=== PATIENT | female | born 1975 | race Caucasian/White ===

== ENCOUNTER 2020-06-20 04:43 | Inpatient (IN) ==
[2020-06-20 05:16] LABS: Hematocrit 41.1 % (35.3-44.9); Hemoglobin 12.5 g/dL (11.5-15.4); Mean Corpuscular HGB Conc 30.4 g/dL (31.6-35.5); Mean Corpuscular Hemoglobin 26.4 pg (28.0-33.3); Mean Corpuscular Volume 86.7 fL (83.0-100.0); Mean Platelet Volume 9.8 fL (9.4-12.4); Platelet Count 236 K/mcL (140-400); Red Blood Count 4.74 M/mcL (3.82-4.97); White Blood Count 7.1 K/mcL (4.3-11.1)
[2020-06-20 05:21] LABS: INR 1.1; Prothrombin Time 12.5 Seconds (9.4-12.1)
[2020-06-20] MEDS ORDERED: Naloxone 0.4 MG/ML INJ IVP ONE (05:21)
[2020-06-20 05:23] LABS: Activated Partial Thrombo Time 26.5 Seconds (26.0-36.0)
[2020-06-20] MEDS ORDERED: 0.9 % Sodium Chloride 1,000 ML IVC ONE (05:29)
[2020-06-20 05:39] LABS: Acetaminophen < 10 mcg/mL (10-20); BUN/Creatinine Ratio 20 (6-26); Blood Urea Nitrogen 16 mg/dL (6-20); Calcium 9.1 mg/dL (8.6-10.3); Carbon Dioxide 23 mEq/L (23-29); Chloride 109 mEq/L (98-107); Ethanol < 10 mg/dL (Less than 10); Glucose 130 mg/dL (70-105); Osmolality,Calculated 295 (280-300); Potassium 4.4 mEq/L (3.5-5.1); Salicylate < 2.5 mg/dL (15.0-30.0); Sodium 141 mEq/L (136-145); eGFR For African Americans > 60 (> 60); eGFR For Non-African Americans > 60 (> 60)
[2020-06-20 05:46] LABS: Troponin I < 0.03 ng/mL (< 0.04)
[2020-06-20 05:51] LABS: Bilirubin,Urine Negative (Negative); Blood,Urine Negative (Negative); Clarity,Urine Clear (Clear); Color,Urine Yellow (Yellow); Glucose,Urine (UA) >=1000 mg/dL (Normal); Ketones,Urine Negative (Negative); Leukocyte Esterase,Urine Negative (Negative); Nitrite,Urine Negative (Negative); PH,Urine 6.5 pH Units (5.0-8.0); Protein,Urine Negative (Neg-Trace); RBC,Urine 0-3 per hpf (0-3); Squamous Epithelial Cell,Urine Few per hpf (None-Few); Urobilinogen,Urine Normal (Normal); WBC,Urine 0-3 per hpf (0-3)
[2020-06-20 05:54] LABS: VBG HCO3 27 mEq/L (21-27); VBG PCO2 68 mmHg (41-51); VBG PH 7.21 pH Units (7.32-7.42); VBG PO2 52 mmHg (25-50)
[2020-06-20 05:59] LABS: Amphetamine Screen,Urine Negative ng/mL (Cutoff=1000); Barbiturate Screen,Urine Negative ng/mL (Cutoff=200); Benzodiazepines Screen,Urine Negative ng/mL (Cutoff=200); Cannabinoid Screen,Urine Negative ng/mL (Cutoff = 50); Cocaine Screen,Urine Negative ng/mL (Cutoff= 300); Opiate Screen,Urine Negative ng/mL (Cutoff=300); Phencyclidine Screen,Urine Negative ng/mL (Cutoff=25)
[2020-06-20] MEDS ORDERED: Ondansetron 4 MG/2 ML VIAL IVP PRN (07:27)
[2020-06-20] MEDS ORDERED: Naloxone 0.4 MG/ML INJ IVP PRN (07:27)
[2020-06-20] MEDS ORDERED: Furosemide 20 MG/2 ML VIAL IVP ONE (07:30)
[2020-06-20 07:39] LABS: Thyroid Stimulating Hormone 1.472 mcIU/mL (0.340-5.600)
[2020-06-20] MEDS: Ipratropium/Albuterol Neb 3 ML IH SCH ×5 (08:05→23:17)
[2020-06-20] MEDS ORDERED: D5% in Water 1,000 ML IVC PRN (08:50)
[2020-06-20] MEDS ORDERED: *HR* Dextrose 50 % in Water (Vial) 50 ML VIAL IVP PRN (08:50)
[2020-06-20] MEDS ORDERED: Dextrose Gel 15 GM/37.5 ML TUBE PO PRN ×2 (08:50)
[2020-06-20] MEDS ORDERED: Isovue-370 500 ML BOTTLE IVP ONE (09:44)
[2020-06-20] MEDS: Azithromycin 500 MG in 0.9 % Sodium Chloride 250 ML IVPB SCH (10:20)
[2020-06-20] MEDS: MethylPREDNISolone 40 MG/ML VIAL IVP SCH (10:20)
[2020-06-20 11:28] LABS: C-Reactive Protein 5 mg/L (Less than 10)
[2020-06-20] MEDS: Insulin LISPRO 300 UNITS/3 ML VIAL SUBQ SCH ×2 (13:00→18:00)
[2020-06-20] MEDS: *HR* Heparin 5,000 UNIT/ML VIAL SQ SCH (17:50)
[2020-06-21] MEDS: Insulin LISPRO 300 UNITS/3 ML VIAL SUBQ SCH ×4 (00:21→20:39)
[2020-06-21] MEDS: Ipratropium/Albuterol Neb 3 ML IH SCH ×5 (04:22→20:03)
[2020-06-21 04:43] LABS: VBG HCO3 25 mEq/L (21-27); VBG PCO2 42 mmHg (41-51); VBG PH 7.39 pH Units (7.32-7.42); VBG PO2 80 mmHg (25-50)
[2020-06-21 04:44] LABS: Basophils % 0.4 %; Eosinophils # 0.1 K/mcL (0.0-0.6); Eosinophils % 1.1 %; Hematocrit 35.7 % (35.3-44.9); Immature Granulocytes % 0.6 % (0-4); Lymphocytes # 2.5 K/mcL (0.6-4.6); Lymphocytes % 35.4 %; Mean Corpuscular HGB Conc 30.3 g/dL (31.6-35.5); Mean Corpuscular Hemoglobin 26.3 pg (28.0-33.3); Mean Corpuscular Volume 87.1 fL (83.0-100.0); Mean Platelet Volume 9.9 fL (9.4-12.4); Monocytes # 0.4 K/mcL (0.0-1.3); Monocytes % 5.6 %; Platelet Count 229 K/mcL (140-400); Red Cell Distribution Width 12.9 % (11.5-14.5); Segmented Neutrophils % 56.9 %
[2020-06-21 04:46] LABS: Hemoglobin 10.8 g/dL (11.5-15.4)
[2020-06-21 05:02] LABS: BUN/Creatinine Ratio 23 (6-26); Blood Urea Nitrogen 16 mg/dL (6-20); Calcium 8.8 mg/dL (8.6-10.3); Carbon Dioxide 24 mEq/L (23-29); Chloride 108 mEq/L (98-107); Glucose 110 mg/dL (70-105); Osmolality,Calculated 290 (280-300); Potassium 3.8 mEq/L (3.5-5.1); Sodium 139 mEq/L (136-145); eGFR For African Americans > 60 (> 60); eGFR For Non-African Americans > 60 (> 60)
[2020-06-21] MEDS: *HR* Heparin 5,000 UNIT/ML VIAL SQ SCH ×2 (05:49→20:38)
[2020-06-21] MEDS: Azithromycin 500 MG in 0.9 % Sodium Chloride 250 ML IVPB SCH (09:31)
[2020-06-21] MEDS: MethylPREDNISolone 40 MG/ML VIAL IVP SCH (09:32)
[2020-06-21] MEDS ORDERED: BUPRENORPHINE TP SCH (12:00)
[2020-06-21] MEDS: Venlafaxine XR (24 HR) 150 MG CAP.ER.24H PO SCH (12:18)
[2020-06-21] MEDS: Aspirin Enteric Coated 81 MG Tablet PO SCH (12:18)
[2020-06-21] MEDS: Gabapentin 300 MG CAPSULE PO SCH ×2 (15:59→20:40)
[2020-06-21] MEDS: hydrOXYzine pamoate 25 MG CAPSULE PO SCH ×2 (15:59→20:40)
[2020-06-21] MEDS ORDERED: Perflutren Lipid Microsphere 1.3 ML in 0.9 % Sodium Chloride 8.7 ML IVP PRN (18:58)
[2020-06-21] MEDS: Topiramate 25 MG TABLET PO SCH (20:39)
[2020-06-21] MEDS: Propranolol LA (24 HR) 60 MG CAP.SA.24H PO SCH (20:40)
[2020-06-21] MEDS ORDERED: risperiDONE 1 MG TABLET PO SCH (21:00)
[2020-06-21] MEDS ORDERED: Ipratropium/Albuterol Neb 3 ML IH PRN (21:37)
[2020-06-22] MEDS: *HR* Heparin 5,000 UNIT/ML VIAL SQ SCH (06:32)
[2020-06-22] MEDS ORDERED: Insulin LISPRO 300 UNITS/3 ML VIAL SUBQ SCH ×2 (07:30→21:00)
[2020-06-22] MEDS: MethylPREDNISolone 40 MG/ML VIAL IVP SCH (08:30)
[2020-06-22] MEDS: Gabapentin 300 MG CAPSULE PO SCH (08:30)
[2020-06-22] MEDS: hydrOXYzine pamoate 25 MG CAPSULE PO SCH (08:30)
[2020-06-22] MEDS: Azithromycin 500 MG in 0.9 % Sodium Chloride 250 ML IVPB SCH (08:31)
[2020-06-22] MEDS: Propranolol LA (24 HR) 60 MG CAP.SA.24H PO SCH (08:31)
[2020-06-22] MEDS: Venlafaxine XR (24 HR) 150 MG CAP.ER.24H PO SCH (08:31)
[2020-06-22] MEDS: Aspirin Enteric Coated 81 MG Tablet PO SCH (08:31)
[2020-06-22] MEDS: Topiramate 25 MG TABLET PO SCH (08:31)
[2020-06-22] MEDS ORDERED: Loratadine 10 MG TABLET PO SCH (09:00)
[2020-06-22 09:57] LABS: Basophils % 0.6 %; Eosinophils # 0.1 K/mcL (0.0-0.6); Eosinophils % 1.2 %; Hematocrit 33.5 % (35.3-44.9); Hemoglobin 10.3 g/dL (11.5-15.4); Immature Granulocytes % 0.9 % (0-4); Lymphocytes # 2.5 K/mcL (0.6-4.6); Lymphocytes % 37.8 %; Mean Corpuscular HGB Conc 30.7 g/dL (31.6-35.5); Mean Corpuscular Volume 87.9 fL (83.0-100.0); Mean Platelet Volume 10.2 fL (9.4-12.4); Monocytes # 0.3 K/mcL (0.0-1.3); Monocytes % 5.1 %; Neutrophils # 3.6 K/mcL (1.6-8.9); Platelet Count 221 K/mcL (140-400); Red Blood Count 3.81 M/mcL (3.82-4.97); Red Cell Distribution Width 12.8 % (11.5-14.5); Segmented Neutrophils % 54.4 %; White Blood Count 6.7 K/mcL (4.3-11.1)
[2020-06-22 10:03] LABS: BUN/Creatinine Ratio 26 (6-26); Blood Urea Nitrogen 20 mg/dL (6-20); Calcium 9.1 mg/dL (8.6-10.3); Carbon Dioxide 24 mEq/L (23-29); Chloride 105 mEq/L (98-107); Glucose 172 mg/dL (70-105); Osmolality,Calculated 293 (280-300); Potassium 3.8 mEq/L (3.5-5.1); Sodium 138 mEq/L (136-145); eGFR For African Americans > 60 (> 60); eGFR For Non-African Americans > 60 (> 60)
[2020-06-22 11:29] VITALS: BP 127/79
[2020-06-23] MEDS ORDERED: Azithromycin 250 MG TABLET PO SCH (09:00)
== END 2020-06-22 13:34 | disposition home or self-care (01) | DRG 189 ==
LOC: 2ANU 04:43 → EMEROOARM 04:43 → SUATTDRO 06:52 → 2ANU 07:54 → MERGE 06-21 15:54
PROVIDERS: ADMIT Student in an Organized Health Care Education/Training Program; ATTEND Internal Medicine

== ENCOUNTER 2021-03-26 10:17 | Inpatient (IN) ==
[2021-03-26] MEDS: 0.9 % Sodium Chloride 1,000 ML IVC SCH ×4 (11:13→13:36)
[2021-03-26 11:23] LABS: Basophils # 0.1 K/mcL (0.0-0.2); Basophils % 0.7 %; Eosinophils # 0.1 K/mcL (0.0-0.6); Eosinophils % 1.2 %; Hematocrit 30.7 % (35.3-44.9); Hemoglobin 9.4 g/dL (11.5-15.4); Immature Granulocytes % 0.9 % (0-4); Lymphocytes # 1.3 K/mcL (0.6-4.6); Lymphocytes % 14.3 %; Mean Corpuscular HGB Conc 30.6 g/dL (31.6-35.5); Mean Corpuscular Hemoglobin 26.1 pg (28.0-33.3); Mean Corpuscular Volume 85.3 fL (83.0-100.0); Mean Platelet Volume 10.2 fL (9.4-12.4); Monocytes # 0.7 K/mcL (0.0-1.3); Monocytes % 7.9 %; Neutrophils # 6.8 K/mcL (1.6-8.9); Nucleated Red Blood Cells 0.3 /100 WBC (0); Platelet Count 275 K/mcL (140-400); Red Cell Distribution Width 15.8 % (11.5-14.5); White Blood Count 9.1 K/mcL (4.3-11.1)
[2021-03-26 11:35] LABS: VBG HCO3 17 mEq/L (21-27); VBG PCO2 39 mmHg (41-51); VBG PH 7.26 pH Units (7.32-7.42); VBG PO2 95 mmHg (25-50)
[2021-03-26 11:36] LABS: INR 1.3
[2021-03-26 11:38] LABS: Amphetamine Screen,Urine Negative ng/mL (Cutoff=1000); Barbiturate Screen,Urine Negative ng/mL (Cutoff=200); Benzodiazepines Screen,Urine Negative ng/mL (Cutoff=200); Cannabinoid Screen,Urine Negative ng/mL (Cutoff = 50); Cocaine Screen,Urine Negative ng/mL (Cutoff= 300); Opiate Screen,Urine Negative ng/mL (Cutoff=300); Phencyclidine Screen,Urine Negative ng/mL (Cutoff=25)
[2021-03-26 11:39] LABS: Activated Partial Thrombo Time 32.6 Seconds (26.0-36.0)
[2021-03-26 11:43] LABS: Bilirubin,Urine Negative (Negative); Blood,Urine Negative (Negative); Clarity,Urine Clear (Clear); Color,Urine Yellow (Yellow); Glucose,Urine (UA) >=1000 mg/dL (Normal); Granular Casts,Urine Few per lpf (None Seen); Hyaline Casts,Urine Few per lpf (None Seen); Ketones,Urine Negative (Negative); Leukocyte Esterase,Urine Negative (Negative); Mucus,Urine Few per lpf (None-Few); Nitrite,Urine Negative (Negative); PH,Urine 5.5 pH Units (5.0-8.0); Protein,Urine 30 mg/dL (Neg-Trace); RBC,Urine 0-3 per hpf (0-3); Specific Gravity,Urine 1.025 (1.010-1.025); Squamous Epithelial Cell,Urine Few per hpf (None-Few); Urobilinogen,Urine Normal (Normal); WBC,Urine 0-3 per hpf (0-3)
[2021-03-26 11:46] LABS: Alanine Aminotransferase 7 Units/L (7-52); Albumin 3.5 g/dL (3.5-5.7); Albumin/Globulin Ratio 1.1 (1.1-2.2); Alkaline Phosphatase 116 Units/L (34-104); Aspartate Amino Transferase 11 Units/L (13-39); BUN/Creatinine Ratio 10 (6-26); Bilirubin,Direct 0.3 mg/dL (0.0-0.2); Bilirubin,Indirect 0.1 mg/dL (0.0-1.0); Bilirubin,Total 0.4 mg/dL (0.3-1.0); Blood Urea Nitrogen 18 mg/dL (6-20); Calcium 8.8 mg/dL (8.6-10.3); Carbon Dioxide 19 mEq/L (23-29); Chloride 106 mEq/L (98-107); Globulin 3.2 g/dL (2.4-3.5); Glucose 150 mg/dL (70-105); Magnesium 1.7 mg/dL (1.6-2.6); Osmolality,Calculated 283 (280-300); Phosphorous 4.6 mg/dL (2.7-4.5); Potassium 4.2 mEq/L (3.5-5.1); Sodium 134 mEq/L (136-145); Total Protein 6.7 g/dL (6.4-8.9); Troponin I < 0.03 ng/mL (< 0.04); eGFR For African Americans 36 (> 60); eGFR For Non-African Americans 30 (> 60)
[2021-03-26] MEDS ORDERED: Vancomycin 2,000 MG/520 ML IV.SOLN IVPB ONE ×2 (12:00→12:14)
[2021-03-26] MEDS ORDERED: Cefepime HCl 2,000 MG in 0.9 % Sodium Chloride Mini Bag 100 ML IVPB ONE (12:17)
[2021-03-26] MEDS ORDERED: *HR* Heparin 5,000 UNIT/ML VIAL IVP PRN ×2 (12:59)
[2021-03-26] MEDS ORDERED: *HR* Heparin 5,000 UNIT/ML VIAL IVP ONE (12:59)
[2021-03-26] MEDS ORDERED: Heparin 25,000UNIT/250ML 1/2NS 25,000 UNIT/250 ML IV.SOLN IVC SCH (13:00)
[2021-03-26 13:07] LABS: Influenza A PCR Negative (Negative); Influenza B PCR Negative (Negative); Resp. Syncytial Virus PCR Negative (Negative)
[2021-03-26] MEDS: Norepinephrine 4 MG/254 ML IV.SOLN IVC SCH (13:13)
[2021-03-26 13:14] LABS: SARS-CoV-2 by PCR (In House) Negative (Negative)
[2021-03-26 13:23] LABS: Hematocrit 28.4 % (35.3-44.9); Hemoglobin 8.4 g/dL (11.5-15.4); Mean Corpuscular HGB Conc 29.6 g/dL (31.6-35.5); Mean Corpuscular Volume 87.9 fL (83.0-100.0); Mean Platelet Volume 10.4 fL (9.4-12.4); Platelet Count 217 K/mcL (140-400); Red Blood Count 3.23 M/mcL (3.82-4.97); Red Cell Distribution Width 15.9 % (11.5-14.5); White Blood Count 8.7 K/mcL (4.3-11.1)
[2021-03-26 13:45] LABS: Heparin anti-factor XA UFH < 0.04 IU/mL (0.30-0.70); INR 1.2; Prothrombin Time 13.5 Seconds (9.4-12.1)
[2021-03-26] MEDS ORDERED: Cefepime HCl 2,000 MG in 0.9 % Sodium Chloride Mini Bag 100 ML IVPB SCH (18:00)
[2021-03-26 19:10] LABS: C-Reactive Protein 236 mg/L (Less than 10)
[2021-03-26] MEDS ORDERED: Ondansetron 4 MG/2 ML VIAL IVP PRN (21:03)
[2021-03-26] MEDS ORDERED: Naloxone 0.4 MG/ML INJ IVP PRN (21:03)
[2021-03-26] MEDS ORDERED: Ringers Solution, Lactated 1,000 ML IVC SCH (21:15)
[2021-03-26] MEDS ORDERED: D5% in Water 1,000 ML IVC PRN (21:21)
[2021-03-26] MEDS ORDERED: Dextrose Gel 15 GM/37.5 ML TUBE PO PRN ×2 (21:21)
[2021-03-26] MEDS ORDERED: *HR* Dextrose 50 % in Water (Syg) 50 ML SYRINGE IVP PRN (21:21)
[2021-03-26 21:57] LABS: VBG HCO3 19 mEq/L (21-27); VBG PCO2 45 mmHg (41-51); VBG PH 7.23 pH Units (7.32-7.42); VBG PO2 94 mmHg (25-50)
[2021-03-26 22:18] LABS: Ethanol < 10 mg/dL (Less than 10); Salicylate < 2.5 mg/dL (15.0-30.0)
[2021-03-26] MEDS: levoFLOXacin 750 MG/150 ML 750 MG/150 ML BAG IVPB SCH (23:04)
[2021-03-27] MEDS: MetroNIDAZOLE 500 MG/100 ML 500 MG/100 ML BAG IVPB SCH ×4 (01:07→18:02)
[2021-03-27] MEDS: Norepinephrine 4 MG/254 ML IV.SOLN IVC SCH (03:58)
[2021-03-27 04:29] LABS: Hematocrit 29.3 % (35.3-44.9); Hemoglobin 8.7 g/dL (11.5-15.4); Mean Corpuscular HGB Conc 29.7 g/dL (31.6-35.5); Mean Corpuscular Hemoglobin 25.4 pg (28.0-33.3); Mean Corpuscular Volume 85.7 fL (83.0-100.0); Mean Platelet Volume 9.9 fL (9.4-12.4); Platelet Count 271 K/mcL (140-400); Red Blood Count 3.42 M/mcL (3.82-4.97); Red Cell Distribution Width 16.1 % (11.5-14.5); White Blood Count 6.9 K/mcL (4.3-11.1)
[2021-03-27 04:31] LABS: Heparin anti-factor XA UFH < 0.04 IU/mL (0.30-0.70)
[2021-03-27 04:48] LABS: BUN/Creatinine Ratio 12 (6-26); Blood Urea Nitrogen 12 mg/dL (6-20); Calcium 8.4 mg/dL (8.6-10.3); Carbon Dioxide 20 mEq/L (23-29); Chloride 113 mEq/L (98-107); Glucose 131 mg/dL (70-105); Magnesium 2.2 mg/dL (1.6-2.6); Osmolality,Calculated 292 (280-300); Phosphorous 2.5 mg/dL (2.7-4.5); Sodium 140 mEq/L (136-145); eGFR For African Americans > 60 (> 60); eGFR For Non-African Americans 58 (> 60)
[2021-03-27 05:26] LABS: INR 1.3; Prothrombin Time 14.3 Seconds (9.4-12.1)
[2021-03-27 05:28] LABS: Activated Partial Thrombo Time 32.2 Seconds (26.0-36.0)
[2021-03-27] MEDS ORDERED: Vancomycin 1,500 MG/265 ML IV.SOLN IVPB SCH ×2 (06:00→20:00)
[2021-03-27] MEDS: levoFLOXacin 750 MG/150 ML 750 MG/150 ML BAG IVPB SCH (08:44)
[2021-03-27] MEDS: Insulin LISPRO 300 UNITS/3 ML VIAL SUBQ SCH ×5 (08:48→20:29)
[2021-03-27] MEDS ORDERED: *HR* FentaNYL (PF) 100 MCG/2 ML VIAL ONE (11:40)
[2021-03-27] MEDS ORDERED: *HR* Succinylcholine 200 MG/10 ML VIAL IVP ONE (11:40)
[2021-03-27] MEDS ORDERED: *HR* Midazolam HCl 2 MG/2 ML VIAL ONE (11:40)
[2021-03-27] MEDS ORDERED: Lidocaine -MPF 2% 5 ML VIAL ONE (11:40)
[2021-03-27] MEDS ORDERED: *HR* Propofol 200 MG/20 ML VIAL IVP ONE (11:41)
[2021-03-27] MEDS ORDERED: Lidocaine HCL 4 ML Topical Solution (Laryng-O-Jet Kit Sterile Pak) TP ONE (11:46)
[2021-03-27] MEDS ORDERED: Lidocaine 1% 20 ML MDV ONE (11:48)
[2021-03-27] MEDS ORDERED: Acetaminophen IV 1,000 MG/100 ML BAG IVPB ONE (12:28)
[2021-03-27] MEDS ORDERED: Ondansetron 4 MG/2 ML VIAL ONE (12:29)
[2021-03-27] MEDS ORDERED: Ketorolac 30 MG/ML VIAL ONE (12:50)
[2021-03-27 14:11] LABS: Estimated Average Glucose 143 mg/dl; Hemoglobin A1C 6.6 %
[2021-03-27] MEDS ORDERED: *HR* Dextrose 50 % in Water (Syg) 50 ML SYRINGE IVP PRN (16:48)
[2021-03-27] MEDS ORDERED: Dextrose Gel 15 GM/37.5 ML TUBE PO PRN ×2 (16:48)
[2021-03-27] MEDS ORDERED: D5% in Water 1,000 ML IVC PRN (16:48)
[2021-03-27] MEDS ORDERED: Ondansetron 4 MG/2 ML VIAL IVP PRN (16:48)
[2021-03-27] MEDS ORDERED: Naloxone 0.4 MG/ML INJ IVP PRN (16:48)
[2021-03-27] MEDS: Gabapentin 300 MG CAPSULE PO SCH (20:27)
[2021-03-27] MEDS: Topiramate 25 MG TABLET PO SCH (20:27)
[2021-03-27] MEDS: clonazePAM 0.5 MG TABLET PO SCH (20:27)
[2021-03-27] MEDS: Baclofen 10 MG TABLET PO SCH (20:27)
[2021-03-27] MEDS: risperiDONE 1 MG TABLET PO SCH (20:28)
[2021-03-27] MEDS: Propranolol LA (24 HR) 60 MG CAP.SA.24H PO SCH (20:28)
[2021-03-27] MEDS ORDERED: Insulin LISPRO 300 UNITS/3 ML VIAL SUBQ SCH (21:00)
[2021-03-27] MEDS ORDERED: DESVENLAFAXINE SUCCINATE PO SCH (21:15)
[2021-03-27] MEDS: Venlafaxine XR (24 HR) 150 MG CAP.ER.24H PO SCH (22:24)
[2021-03-28] MEDS ORDERED: MetroNIDAZOLE 500 MG/100 ML 500 MG/100 ML BAG IVPB SCH
[2021-03-28] MEDS: MetroNIDAZOLE 500 MG/100 ML 500 MG/100 ML BAG IVPB SCH ×3 (03:15→17:16)
[2021-03-28 03:27] LABS: Basophils % 0.2 %; Eosinophils % 0.2 %; Hematocrit 25.3 % (35.3-44.9); Hemoglobin 7.7 g/dL (11.5-15.4); Immature Granulocytes % 1.8 % (0-4); Lymphocytes # 0.8 K/mcL (0.6-4.6); Lymphocytes % 14.6 %; Mean Corpuscular HGB Conc 30.4 g/dL (31.6-35.5); Mean Corpuscular Volume 85.5 fL (83.0-100.0); Mean Platelet Volume 9.5 fL (9.4-12.4); Monocytes # 0.5 K/mcL (0.0-1.3); Monocytes % 8.1 %; Neutrophils # 4.2 K/mcL (1.6-8.9); Platelet Count 248 K/mcL (140-400); Red Blood Count 2.96 M/mcL (3.82-4.97); Red Cell Distribution Width 15.8 % (11.5-14.5); Segmented Neutrophils % 75.1 %; White Blood Count 5.6 K/mcL (4.3-11.1)
[2021-03-28 03:44] LABS: BUN/Creatinine Ratio 12 (6-26); Blood Urea Nitrogen 8 mg/dL (6-20); Calcium 8.2 mg/dL (8.6-10.3); Carbon Dioxide 21 mEq/L (23-29); Chloride 110 mEq/L (98-107); Glucose 161 mg/dL (70-105); Osmolality,Calculated 288 (280-300); Potassium 4.1 mEq/L (3.5-5.1); Sodium 138 mEq/L (136-145); eGFR For African Americans > 60 (> 60); eGFR For Non-African Americans > 60 (> 60)
[2021-03-28] MEDS: Norepinephrine 4 MG/254 ML IV.SOLN IVC SCH ×4 (06:38→19:17)
[2021-03-28] MEDS: Topiramate 25 MG TABLET PO SCH ×2 (09:13→20:24)
[2021-03-28] MEDS: Ascorbic Acid 500 MG TABLET PO SCH (09:13)
[2021-03-28] MEDS: Folic Acid 1 MG TABLET PO SCH (09:13)
[2021-03-28] MEDS: Vitamin B Complex/Vit C/Vit E 1 EACH TABLET PO SCH (09:14)
[2021-03-28] MEDS: Baclofen 10 MG TABLET PO SCH ×3 (09:14→20:25)
[2021-03-28] MEDS: Aspirin 81 MG TAB.CHEW PO SCH (09:14)
[2021-03-28] MEDS: Gabapentin 300 MG CAPSULE PO SCH ×3 (09:14→20:25)
[2021-03-28] MEDS: clonazePAM 0.5 MG TABLET PO SCH ×4 (09:14→20:25)
[2021-03-28] MEDS: Propranolol LA (24 HR) 60 MG CAP.SA.24H PO SCH ×2 (09:14→22:42)
[2021-03-28] MEDS: levoFLOXacin 750 MG/150 ML 750 MG/150 ML BAG IVPB SCH (09:14)
[2021-03-28] MEDS: Insulin LISPRO 300 UNITS/3 ML VIAL SUBQ SCH ×4 (09:23→20:25)
[2021-03-28] MEDS: lisinopriL 5 MG TABLET PO SCH (11:39)
[2021-03-28] MEDS: Vancomycin 1,500 MG/265 ML IV.SOLN IVPB SCH (13:09)
[2021-03-28] MEDS: Acetaminophen 325 MG TABLET PO PRN (15:11)
[2021-03-28] MEDS: risperiDONE 1 MG TABLET PO SCH (20:25)
[2021-03-28] MEDS: Venlafaxine XR (24 HR) 150 MG CAP.ER.24H PO SCH (20:25)
[2021-03-29] MEDS: Vancomycin 1,500 MG/265 ML IV.SOLN IVPB SCH ×2 (00:42→11:34)
[2021-03-29] MEDS: MetroNIDAZOLE 500 MG/100 ML 500 MG/100 ML BAG IVPB SCH ×3 (00:42→17:21)
[2021-03-29 01:32] LABS: Basophils # 0.1 K/mcL (0.0-0.2); Eosinophils # 0.1 K/mcL (0.0-0.6); Eosinophils % 0.8 %; Hematocrit 28.4 % (35.3-44.9); Hemoglobin 8.3 g/dL (11.5-15.4); Immature Granulocytes % 2.8 % (0-4); Lymphocytes % 17.3 %; Mean Corpuscular HGB Conc 29.2 g/dL (31.6-35.5); Mean Corpuscular Hemoglobin 25.2 pg (28.0-33.3); Mean Corpuscular Volume 86.3 fL (83.0-100.0); Mean Platelet Volume 9.7 fL (9.4-12.4); Monocytes # 0.5 K/mcL (0.0-1.3); Monocytes % 7.5 %; Neutrophils # 4.2 K/mcL (1.6-8.9); Platelet Count 262 K/mcL (140-400); Red Blood Count 3.29 M/mcL (3.82-4.97); Red Cell Distribution Width 16.1 % (11.5-14.5); Segmented Neutrophils % 70.6 %
[2021-03-29 01:52] LABS: BUN/Creatinine Ratio 11 (6-26); Blood Urea Nitrogen 8 mg/dL (6-20); Calcium 8.2 mg/dL (8.6-10.3); Carbon Dioxide 21 mEq/L (23-29); Chloride 109 mEq/L (98-107); Glucose 194 mg/dL (70-105); Iron 16 mcg/dL (50-170); Osmolality,Calculated 288 (280-300); Potassium 3.9 mEq/L (3.5-5.1); Sodium 137 mEq/L (136-145); eGFR For African Americans > 60 (> 60); eGFR For Non-African Americans > 60 (> 60)
[2021-03-29 02:10] LABS: Ferritin 91 ng/mL (10-120)
[2021-03-29 02:15] LABS: Folate 20.8 ng/mL (3.0-16.0)
[2021-03-29 03:25] LABS: % Iron Saturation 6 % (15-50); Transferrin 197 mg/dL (203-362)
[2021-03-29] MEDS: Norepinephrine 4 MG/254 ML IV.SOLN IVC SCH (06:36)
[2021-03-29] MEDS: Topiramate 25 MG TABLET PO SCH ×2 (08:04→19:48)
[2021-03-29] MEDS: Gabapentin 300 MG CAPSULE PO SCH ×3 (08:04→19:48)
[2021-03-29] MEDS: Folic Acid 1 MG TABLET PO SCH (08:05)
[2021-03-29] MEDS: Aspirin 81 MG TAB.CHEW PO SCH (08:05)
[2021-03-29] MEDS: Vitamin B Complex/Vit C/Vit E 1 EACH TABLET PO SCH (08:05)
[2021-03-29] MEDS: lisinopriL 5 MG TABLET PO SCH (08:06)
[2021-03-29] MEDS: clonazePAM 0.5 MG TABLET PO SCH ×4 (08:06→19:48)
[2021-03-29] MEDS: Propranolol LA (24 HR) 60 MG CAP.SA.24H PO SCH ×2 (08:06→19:48)
[2021-03-29] MEDS: Baclofen 10 MG TABLET PO SCH ×3 (08:07→19:48)
[2021-03-29] MEDS: Ascorbic Acid 500 MG TABLET PO SCH (08:08)
[2021-03-29] MEDS: levoFLOXacin 750 MG/150 ML 750 MG/150 ML BAG IVPB SCH (08:16)
[2021-03-29] MEDS: Insulin LISPRO 300 UNITS/3 ML VIAL SUBQ SCH ×4 (08:33→23:03)
[2021-03-29] MEDS ORDERED: Iron Sucrose Complex 400 MG in 0.9 % Sodium Chloride 250 ML IVPB ONE (12:11)
[2021-03-29] MEDS: *HR* Heparin 5,000 UNIT/ML VIAL SQ SCH (17:21)
[2021-03-29] MEDS: risperiDONE 1 MG TABLET PO SCH (19:47)
[2021-03-29] MEDS: Venlafaxine XR (24 HR) 150 MG CAP.ER.24H PO SCH (19:48)
[2021-03-30] MEDS: Vancomycin 1,500 MG/265 ML IV.SOLN IVPB SCH ×2 (00:38→12:45)
[2021-03-30] MEDS: MetroNIDAZOLE 500 MG/100 ML 500 MG/100 ML BAG IVPB SCH ×3 (01:58→19:58)
[2021-03-30 02:57] LABS: Hematocrit 26.4 % (35.3-44.9); Hemoglobin 8.1 g/dL (11.5-15.4); Mean Corpuscular HGB Conc 30.7 g/dL (31.6-35.5); Mean Corpuscular Hemoglobin 26.5 pg (28.0-33.3); Mean Corpuscular Volume 86.3 fL (83.0-100.0); Mean Platelet Volume 9.9 fL (9.4-12.4); Platelet Count 243 K/mcL (140-400); Red Blood Count 3.06 M/mcL (3.82-4.97); Red Cell Distribution Width 16.1 % (11.5-14.5); White Blood Count 5.8 K/mcL (4.3-11.1)
[2021-03-30 03:16] LABS: BUN/Creatinine Ratio 9 (6-26); Blood Urea Nitrogen 7 mg/dL (6-20); Calcium 7.9 mg/dL (8.6-10.3); Carbon Dioxide 21 mEq/L (23-29); Chloride 112 mEq/L (98-107); Glucose 189 mg/dL (70-105); Osmolality,Calculated 293 (280-300); Potassium 3.7 mEq/L (3.5-5.1); Sodium 140 mEq/L (136-145); eGFR For African Americans > 60 (> 60); eGFR For Non-African Americans > 60 (> 60)
[2021-03-30] MEDS: *HR* Heparin 5,000 UNIT/ML VIAL SQ SCH ×2 (06:02→18:48)
[2021-03-30] MEDS: Topiramate 25 MG TABLET PO SCH ×2 (07:46→19:58)
[2021-03-30] MEDS: levoFLOXacin 750 MG/150 ML 750 MG/150 ML BAG IVPB SCH (07:46)
[2021-03-30] MEDS: Aspirin 81 MG TAB.CHEW PO SCH (07:46)
[2021-03-30] MEDS: Ascorbic Acid 500 MG TABLET PO SCH (07:47)
[2021-03-30] MEDS: lisinopriL 5 MG TABLET PO SCH (07:47)
[2021-03-30] MEDS: Vitamin B Complex/Vit C/Vit E 1 EACH TABLET PO SCH (07:47)
[2021-03-30] MEDS: Propranolol LA (24 HR) 60 MG CAP.SA.24H PO SCH ×2 (07:47→20:27)
[2021-03-30] MEDS: clonazePAM 0.5 MG TABLET PO SCH ×4 (07:48→19:58)
[2021-03-30] MEDS: Baclofen 10 MG TABLET PO SCH ×3 (07:48→19:58)
[2021-03-30] MEDS: Gabapentin 300 MG CAPSULE PO SCH ×3 (07:48→19:58)
[2021-03-30] MEDS: Folic Acid 1 MG TABLET PO SCH (07:48)
[2021-03-30] MEDS: Insulin LISPRO 300 UNITS/3 ML VIAL SUBQ SCH ×4 (07:49→20:21)
[2021-03-30] MEDS: Ringers Solution, Lactated 1,000 ML IVC SCH ×2 (16:29→20:07)
[2021-03-30] MEDS ORDERED: Ipratropium/Albuterol Neb 3 ML IH ONE (16:33)
[2021-03-30] MEDS ORDERED: *HR* FentaNYL (PF) 100 MCG/2 ML VIAL IVP PRN (16:34)
[2021-03-30] MEDS ORDERED: *HR* OxyCODONE Immed Rel 5 MG TABLET PO PRN (16:34)
[2021-03-30] MEDS ORDERED: Ondansetron 4 MG/2 ML VIAL IVP PRN (16:34)
[2021-03-30] MEDS ORDERED: Lidocaine 1% 20 ML MDV ONE (16:47)
[2021-03-30] MEDS ORDERED: Lidocaine -MPF 2% 5 ML VIAL ONE (16:47)
[2021-03-30] MEDS: *HR* HYDROmorphone PF 0.5 MG/0.5 ML SYRINGE IVP PRN ×2 (18:42→18:47)
[2021-03-30 19:15] LABS: Hematocrit 23.8 % (35.3-44.9); Mean Corpuscular HGB Conc 29.4 g/dL (31.6-35.5); Mean Corpuscular Hemoglobin 25.3 pg (28.0-33.3); Mean Corpuscular Volume 85.9 fL (83.0-100.0); Mean Platelet Volume 9.3 fL (9.4-12.4); Platelet Count 228 K/mcL (140-400); Red Blood Count 2.77 M/mcL (3.82-4.97); White Blood Count 5.2 K/mcL (4.3-11.1)
[2021-03-30] MEDS: risperiDONE 1 MG TABLET PO SCH (19:57)
[2021-03-30] MEDS: Venlafaxine XR (24 HR) 150 MG CAP.ER.24H PO SCH (19:58)
[2021-03-31] MEDS: Vancomycin 1,500 MG/265 ML IV.SOLN IVPB SCH ×3 (00:22→23:41)
[2021-03-31] MEDS: MetroNIDAZOLE 500 MG/100 ML 500 MG/100 ML BAG IVPB SCH ×3 (00:23→17:52)
[2021-03-31 00:45] LABS: Hematocrit 22.2 % (35.3-44.9); Hemoglobin 6.8 g/dL (11.5-15.4); Mean Corpuscular HGB Conc 30.6 g/dL (31.6-35.5); Mean Corpuscular Hemoglobin 26.3 pg (28.0-33.3); Mean Corpuscular Volume 85.7 fL (83.0-100.0); Mean Platelet Volume 10.1 fL (9.4-12.4); Platelet Count 230 K/mcL (140-400); Red Blood Count 2.59 M/mcL (3.82-4.97); Red Cell Distribution Width 16.2 % (11.5-14.5); White Blood Count 5.8 K/mcL (4.3-11.1)
[2021-03-31 01:05] LABS: BUN/Creatinine Ratio 11 (6-26); Blood Urea Nitrogen 8 mg/dL (6-20); Carbon Dioxide 24 mEq/L (23-29); Chloride 111 mEq/L (98-107); Glucose 243 mg/dL (70-105); Osmolality,Calculated 296 (280-300); Potassium 3.8 mEq/L (3.5-5.1); Sodium 140 mEq/L (136-145); eGFR For African Americans > 60 (> 60); eGFR For Non-African Americans > 60 (> 60)
[2021-03-31] MEDS ORDERED: 0.9 % Sodium Chloride 250 ML IVC SCH (01:15)
[2021-03-31] MEDS: Acetaminophen 325 MG TABLET PO PRN (02:46)
[2021-03-31] MEDS: *HR* Heparin 5,000 UNIT/ML VIAL SQ SCH ×2 (06:04→17:49)
[2021-03-31 06:55] LABS: Basophils % 0.5 %; Eosinophils # 0.1 K/mcL (0.0-0.6); Hematocrit 23.5 % (35.3-44.9); Hemoglobin 7.2 g/dL (11.5-15.4); Immature Granulocytes % 4.7 % (0-4); Lymphocytes # 1.2 K/mcL (0.6-4.6); Lymphocytes % 19.9 %; Mean Corpuscular HGB Conc 30.6 g/dL (31.6-35.5); Mean Corpuscular Hemoglobin 26.2 pg (28.0-33.3); Mean Corpuscular Volume 85.5 fL (83.0-100.0); Mean Platelet Volume 9.5 fL (9.4-12.4); Monocytes # 0.4 K/mcL (0.0-1.3); Monocytes % 6.4 %; Nucleated Red Blood Cells 0.5 /100 WBC (0); Platelet Count 222 K/mcL (140-400); Red Blood Count 2.75 M/mcL (3.82-4.97); Segmented Neutrophils % 66.5 %; White Blood Count 5.9 K/mcL (4.3-11.1)
[2021-03-31] MEDS: Insulin LISPRO 300 UNITS/3 ML VIAL SUBQ SCH ×4 (07:30→20:32)
[2021-03-31] MEDS: Gabapentin 300 MG CAPSULE PO SCH ×3 (09:58→19:24)
[2021-03-31] MEDS: Folic Acid 1 MG TABLET PO SCH (09:59)
[2021-03-31] MEDS: Propranolol LA (24 HR) 60 MG CAP.SA.24H PO SCH ×2 (09:59→19:24)
[2021-03-31] MEDS: clonazePAM 0.5 MG TABLET PO SCH ×4 (09:59→19:25)
[2021-03-31] MEDS: Vitamin B Complex/Vit C/Vit E 1 EACH TABLET PO SCH (10:00)
[2021-03-31] MEDS: Topiramate 25 MG TABLET PO SCH ×2 (10:00→19:24)
[2021-03-31] MEDS: lisinopriL 5 MG TABLET PO SCH (10:00)
[2021-03-31] MEDS: Aspirin 81 MG TAB.CHEW PO SCH (10:00)
[2021-03-31] MEDS: Baclofen 10 MG TABLET PO SCH ×3 (10:01→19:25)
[2021-03-31] MEDS: Ascorbic Acid 500 MG TABLET PO SCH (10:01)
[2021-03-31] MEDS: levoFLOXacin 750 MG/150 ML 750 MG/150 ML BAG IVPB SCH (11:42)
[2021-03-31] MEDS: risperiDONE 1 MG TABLET PO SCH (19:24)
[2021-03-31] MEDS: Venlafaxine XR (24 HR) 150 MG CAP.ER.24H PO SCH (19:24)
[2021-03-31] MEDS ORDERED: *HR* OxyCODONE Immed Rel 5 MG TABLET PO ONE (20:06)
[2021-04-01] MEDS: MetroNIDAZOLE 500 MG/100 ML 500 MG/100 ML BAG IVPB SCH ×3 (00:51→17:27)
[2021-04-01 03:31] LABS: Hematocrit 23.5 % (35.3-44.9); Hemoglobin 6.9 g/dL (11.5-15.4); Mean Corpuscular HGB Conc 29.4 g/dL (31.6-35.5); Mean Corpuscular Hemoglobin 25.5 pg (28.0-33.3); Mean Corpuscular Volume 86.7 fL (83.0-100.0); Platelet Count 224 K/mcL (140-400); Red Blood Count 2.71 M/mcL (3.82-4.97); Red Cell Distribution Width 16.4 % (11.5-14.5); White Blood Count 6.5 K/mcL (4.3-11.1)
[2021-04-01 03:49] LABS: BUN/Creatinine Ratio 15 (6-26); Blood Urea Nitrogen 10 mg/dL (6-20); Calcium 7.8 mg/dL (8.6-10.3); Carbon Dioxide 24 mEq/L (23-29); Chloride 110 mEq/L (98-107); Glucose 244 mg/dL (70-105); Osmolality,Calculated 295 (280-300); Potassium 3.4 mEq/L (3.5-5.1); Sodium 139 mEq/L (136-145); eGFR For African Americans > 60 (> 60); eGFR For Non-African Americans > 60 (> 60)
[2021-04-01] MEDS: *HR* Heparin 5,000 UNIT/ML VIAL SQ SCH ×2 (04:50→17:27)
[2021-04-01] MEDS: Topiramate 25 MG TABLET PO SCH ×2 (07:40→21:03)
[2021-04-01] MEDS: Aspirin 81 MG TAB.CHEW PO SCH (07:40)
[2021-04-01] MEDS: Vitamin B Complex/Vit C/Vit E 1 EACH TABLET PO SCH (07:40)
[2021-04-01] MEDS: Propranolol LA (24 HR) 60 MG CAP.SA.24H PO SCH ×2 (07:40→21:05)
[2021-04-01] MEDS: Ascorbic Acid 500 MG TABLET PO SCH (07:41)
[2021-04-01] MEDS: clonazePAM 0.5 MG TABLET PO SCH ×4 (07:41→21:04)
[2021-04-01] MEDS: lisinopriL 5 MG TABLET PO SCH (07:41)
[2021-04-01] MEDS: Folic Acid 1 MG TABLET PO SCH (07:41)
[2021-04-01] MEDS: Baclofen 10 MG TABLET PO SCH ×3 (07:41→21:05)
[2021-04-01] MEDS: Gabapentin 300 MG CAPSULE PO SCH ×3 (07:41→21:03)
[2021-04-01] MEDS: Insulin LISPRO 300 UNITS/3 ML VIAL SUBQ SCH ×4 (07:49→21:09)
[2021-04-01 11:43] LABS: Hematocrit 25.2 % (35.3-44.9); Hemoglobin 7.6 g/dL (11.5-15.4)
[2021-04-01] MEDS ORDERED: Lidocaine -MPF 2% 5 ML VIAL ONE (12:31)
[2021-04-01] MEDS ORDERED: *HR* Propofol 200 MG/20 ML VIAL IVP ONE (12:32)
[2021-04-01] MEDS ORDERED: *HR* FentaNYL (PF) 100 MCG/2 ML VIAL ONE ×2 (12:32→13:59)
[2021-04-01] MEDS ORDERED: *HR* Midazolam HCl 2 MG/2 ML VIAL ONE (12:33)
[2021-04-01] MEDS ORDERED: Ondansetron 4 MG/2 ML VIAL ONE (12:39)
[2021-04-01] MEDS ORDERED: Lidocaine 1% 20 ML MDV ONE (13:25)
[2021-04-01] MEDS: Ringers Solution, Lactated 1,000 ML IVC SCH (15:28)
[2021-04-01] MEDS: levoFLOXacin 750 MG/150 ML 750 MG/150 ML BAG IVPB SCH (16:12)
[2021-04-01] MEDS ORDERED: Vancomycin 1,500 MG/265 ML IV.SOLN IVPB SCH (16:30)
[2021-04-01] MEDS: Vancomycin 1,500 MG/265 ML IV.SOLN IVPB SCH (16:38)
[2021-04-01] MEDS ORDERED: Acetaminophen 325 MG TABLET PO PRN (16:51)
[2021-04-01] MEDS ORDERED: D5% in Water 1,000 ML IVC PRN (16:51)
[2021-04-01] MEDS ORDERED: Ringers Solution, Lactated 1,000 ML IVC SCH (16:51)
[2021-04-01] MEDS ORDERED: Dextrose Gel 15 GM/37.5 ML TUBE PO PRN ×2 (16:51)
[2021-04-01] MEDS ORDERED: Naloxone 0.4 MG/ML INJ IVP PRN (16:51)
[2021-04-01] MEDS ORDERED: *HR* Dextrose 50 % in Water (Syg) 50 ML SYRINGE IVP PRN (16:51)
[2021-04-01] MEDS ORDERED: 0.9 % Sodium Chloride 250 ML IVC SCH (16:51)
[2021-04-01] MEDS ORDERED: *HR* FentaNYL (PF) 100 MCG/2 ML VIAL IVP PRN (16:51)
[2021-04-01] MEDS ORDERED: Ondansetron 4 MG/2 ML VIAL IVP PRN (16:51)
[2021-04-01] MEDS ORDERED: Lactobacillus 1 EACH CAP.SPRINK PO SCH (21:00)
[2021-04-01] MEDS: Venlafaxine XR (24 HR) 150 MG CAP.ER.24H PO SCH (21:04)
[2021-04-01] MEDS: risperiDONE 1 MG TABLET PO SCH (21:04)
[2021-04-02] MEDS: MetroNIDAZOLE 500 MG/100 ML 500 MG/100 ML BAG IVPB SCH ×4 (00:26→23:48)
[2021-04-02 03:47] LABS: Hematocrit 25.5 % (35.3-44.9); Hemoglobin 7.4 g/dL (11.5-15.4); Mean Corpuscular Hemoglobin 25.8 pg (28.0-33.3); Mean Corpuscular Volume 88.9 fL (83.0-100.0); Mean Platelet Volume 10.4 fL (9.4-12.4); Platelet Count 236 K/mcL (140-400); Red Blood Count 2.87 M/mcL (3.82-4.97); Red Cell Distribution Width 16.7 % (11.5-14.5); White Blood Count 6.3 K/mcL (4.3-11.1)
[2021-04-02 04:03] LABS: BUN/Creatinine Ratio 12 (6-26); Blood Urea Nitrogen 9 mg/dL (6-20); Carbon Dioxide 25 mEq/L (23-29); Chloride 110 mEq/L (98-107); Glucose 164 mg/dL (70-105); Osmolality,Calculated 296 (280-300); Potassium 3.5 mEq/L (3.5-5.1); Sodium 142 mEq/L (136-145); eGFR For African Americans > 60 (> 60); eGFR For Non-African Americans > 60 (> 60)
[2021-04-02 04:16] LABS: Ferritin 327 ng/mL (10-120)
[2021-04-02 04:48] LABS: Folate 18.3 ng/mL (3.0-16.0)
[2021-04-02] MEDS: *HR* Heparin 5,000 UNIT/ML VIAL SQ SCH ×2 (06:53→16:40)
[2021-04-02] MEDS ORDERED: Lidocaine -MPF 1% 5 ML AMPUL INFILT ONE (07:50)
[2021-04-02] MEDS: *HR* OxyCODONE Immed Rel 5 MG TABLET PO PRN ×3 (09:55→23:47)
[2021-04-02] MEDS: Topiramate 25 MG TABLET PO SCH ×2 (09:58→20:23)
[2021-04-02] MEDS: clonazePAM 0.5 MG TABLET PO SCH ×4 (09:59→20:22)
[2021-04-02] MEDS: Vitamin B Complex/Vit C/Vit E 1 EACH TABLET PO SCH (09:59)
[2021-04-02] MEDS: Folic Acid 1 MG TABLET PO SCH (09:59)
[2021-04-02] MEDS: lisinopriL 5 MG TABLET PO SCH (10:00)
[2021-04-02] MEDS: Ascorbic Acid 500 MG TABLET PO SCH (10:00)
[2021-04-02] MEDS: Gabapentin 300 MG CAPSULE PO SCH ×3 (10:00→20:22)
[2021-04-02] MEDS: Aspirin 81 MG TAB.CHEW PO SCH (10:00)
[2021-04-02] MEDS: Baclofen 10 MG TABLET PO SCH ×3 (10:01→20:27)
[2021-04-02] MEDS: Vancomycin 1,500 MG/265 ML IV.SOLN IVPB SCH ×2 (10:02→19:30)
[2021-04-02] MEDS: Propranolol LA (24 HR) 60 MG CAP.SA.24H PO SCH ×2 (10:02→20:23)
[2021-04-02] MEDS: Insulin LISPRO 300 UNITS/3 ML VIAL SUBQ SCH ×4 (10:03→21:11)
[2021-04-02] MEDS ORDERED: Cyanocobalamin (B-12) 1,000 MCG/ML VIAL SQ ONE (12:30)
[2021-04-02] MEDS: risperiDONE 1 MG TABLET PO SCH (20:22)
[2021-04-02] MEDS: Venlafaxine XR (24 HR) 150 MG CAP.ER.24H PO SCH (20:24)
[2021-04-02 22:08] LABS: Adenovirus F 40/41 PCR Not detected (Not detect); Astrovirus PCR Not detected (Not detect); C.difficile Toxin A/B Gene PCR Not detected (Not detect); Campylobacter by PCR Not detected (Not detect); Cryptosporidium by PCR Not detected (Not detect); Cyclospora cayetanensis PCR Not detected (Not detect); E. coli O157 by PCR Not detected (Not detect); Entamoeba histolytica PCR Not detected (Not detect); Enteroaggregative E.coli(EAEC) Not detected (Not detect); Enteropathogenic E.coli(EPEC) Not detected (Not detect); Enterotoxigenic E.coli (ETEC) Not detected (Not detect); Giardia lamblia PCR Not detected (Not detect); Norovirus GI/GII PCR Not detected (Not detect); Plesiomonas shigelloides PCR Not detected (Not detect); Rotavirus A PCR Not detected (Not detect); Salmonella PCR Not detected (Not detect); Sapovirus PCR Not detected (Not detect); Shig/EnteroinvasiveE coli EIEC Not detected (Not detect); Shigalike tox-prod E coli STEC Not detected (Not detect); Vibrio PCR Not detected (Not detect); Vibrio cholerae PCR Not detected (Not detect); Yersinia enterocolitica PCR Not detected (Not detect)
[2021-04-03 04:15] LABS: Hematocrit 24.7 % (35.3-44.9); Hemoglobin 7.3 g/dL (11.5-15.4); Mean Corpuscular HGB Conc 29.6 g/dL (31.6-35.5); Mean Corpuscular Hemoglobin 26.4 pg (28.0-33.3); Mean Corpuscular Volume 89.2 fL (83.0-100.0); Mean Platelet Volume 10.1 fL (9.4-12.4); Platelet Count 244 K/mcL (140-400); Red Blood Count 2.77 M/mcL (3.82-4.97); Red Cell Distribution Width 16.8 % (11.5-14.5); White Blood Count 6.3 K/mcL (4.3-11.1)
[2021-04-03] MEDS: *HR* Heparin 5,000 UNIT/ML VIAL SQ SCH ×2 (05:14→17:55)
[2021-04-03 05:19] LABS: % Iron Saturation 24 % (15-50); BUN/Creatinine Ratio 14 (6-26); Blood Urea Nitrogen 11 mg/dL (6-20); Calcium 7.9 mg/dL (8.6-10.3); Carbon Dioxide 25 mEq/L (23-29); Chloride 108 mEq/L (98-107); Glucose 210 mg/dL (70-105); Iron 60 mcg/dL (50-170); Osmolality,Calculated 296 (280-300); Potassium 3.8 mEq/L (3.5-5.1); Sodium 140 mEq/L (136-145); Transferrin 175 mg/dL (203-362); eGFR For African Americans > 60 (> 60); eGFR For Non-African Americans > 60 (> 60)
[2021-04-03] MEDS: lisinopriL 5 MG TABLET PO SCH (07:53)
[2021-04-03] MEDS: Propranolol LA (24 HR) 60 MG CAP.SA.24H PO SCH ×2 (07:53→20:36)
[2021-04-03] MEDS: clonazePAM 0.5 MG TABLET PO SCH ×4 (07:53→20:36)
[2021-04-03] MEDS: Folic Acid 1 MG TABLET PO SCH (08:07)
[2021-04-03] MEDS: Gabapentin 300 MG CAPSULE PO SCH ×3 (08:07→20:30)
[2021-04-03] MEDS: Ascorbic Acid 500 MG TABLET PO SCH (08:07)
[2021-04-03] MEDS: Insulin LISPRO 300 UNITS/3 ML VIAL SUBQ SCH ×4 (08:07→20:38)
[2021-04-03] MEDS: *HR* OxyCODONE Immed Rel 5 MG TABLET PO PRN ×2 (08:08→17:54)
[2021-04-03] MEDS: Vitamin B Complex/Vit C/Vit E 1 EACH TABLET PO SCH (08:08)
[2021-04-03] MEDS: Topiramate 25 MG TABLET PO SCH ×2 (08:08→20:32)
[2021-04-03] MEDS: Baclofen 10 MG TABLET PO SCH ×3 (08:09→20:30)
[2021-04-03] MEDS: Vancomycin 1,500 MG/265 ML IV.SOLN IVPB SCH ×3 (08:09→20:38)
[2021-04-03] MEDS: Aspirin 81 MG TAB.CHEW PO SCH (08:09)
[2021-04-03] MEDS: MetroNIDAZOLE 500 MG/100 ML 500 MG/100 ML BAG IVPB SCH ×2 (08:10→17:56)
[2021-04-03] MEDS: Venlafaxine XR (24 HR) 150 MG CAP.ER.24H PO SCH (20:30)
[2021-04-03] MEDS: risperiDONE 1 MG TABLET PO SCH (20:31)
[2021-04-04] MEDS: MetroNIDAZOLE 500 MG/100 ML 500 MG/100 ML BAG IVPB SCH ×3 (00:36→17:35)
[2021-04-04] MEDS: *HR* OxyCODONE Immed Rel 5 MG TABLET PO PRN ×3 (00:47→20:53)
[2021-04-04] MEDS: clonazePAM 0.5 MG TABLET PO SCH ×4 (00:48→20:49)
[2021-04-04] MEDS: *HR* Heparin 5,000 UNIT/ML VIAL SQ SCH ×2 (06:01→17:35)
[2021-04-04] MEDS: Insulin LISPRO 300 UNITS/3 ML VIAL SUBQ SCH ×4 (08:05→20:54)
[2021-04-04] MEDS: Ascorbic Acid 500 MG TABLET PO SCH (08:06)
[2021-04-04] MEDS: Vitamin B Complex/Vit C/Vit E 1 EACH TABLET PO SCH (08:06)
[2021-04-04] MEDS: Gabapentin 300 MG CAPSULE PO SCH ×3 (08:06→20:50)
[2021-04-04] MEDS: Folic Acid 1 MG TABLET PO SCH (08:06)
[2021-04-04] MEDS: Baclofen 10 MG TABLET PO SCH ×3 (08:06→20:49)
[2021-04-04] MEDS: Aspirin 81 MG TAB.CHEW PO SCH (08:06)
[2021-04-04] MEDS: Propranolol LA (24 HR) 60 MG CAP.SA.24H PO SCH ×2 (08:07→20:50)
[2021-04-04] MEDS: lisinopriL 5 MG TABLET PO SCH (08:07)
[2021-04-04] MEDS: Topiramate 25 MG TABLET PO SCH ×2 (08:07→20:49)
[2021-04-04] MEDS: Vancomycin 1,500 MG/265 ML IV.SOLN IVPB SCH ×2 (08:26→20:50)
[2021-04-04 10:38] LABS: BUN/Creatinine Ratio 13 (6-26); Blood Urea Nitrogen 9 mg/dL (6-20); eGFR For African Americans > 60 (> 60); eGFR For Non-African Americans > 60 (> 60)
[2021-04-04] MEDS: Venlafaxine XR (24 HR) 150 MG CAP.ER.24H PO SCH (20:49)
[2021-04-04] MEDS: risperiDONE 1 MG TABLET PO SCH (20:50)
[2021-04-05] MEDS: MetroNIDAZOLE 500 MG/100 ML 500 MG/100 ML BAG IVPB SCH ×3 (01:45→16:30)
[2021-04-05] MEDS: *HR* Heparin 5,000 UNIT/ML VIAL SQ SCH ×2 (05:25→16:28)
[2021-04-05 06:01] LABS: Hematocrit 24.7 % (35.3-44.9); Hemoglobin 7.2 g/dL (11.5-15.4); Mean Corpuscular HGB Conc 29.1 g/dL (31.6-35.5); Mean Corpuscular Hemoglobin 26.4 pg (28.0-33.3); Mean Corpuscular Volume 90.5 fL (83.0-100.0); Mean Platelet Volume 10.5 fL (9.4-12.4); Platelet Count 243 K/mcL (140-400); Red Blood Count 2.73 M/mcL (3.82-4.97); Red Cell Distribution Width 18.1 % (11.5-14.5); White Blood Count 6.3 K/mcL (4.3-11.1)
[2021-04-05 06:17] LABS: BUN/Creatinine Ratio 12 (6-26); Blood Urea Nitrogen 9 mg/dL (6-20); Calcium 8.1 mg/dL (8.6-10.3); Carbon Dioxide 28 mEq/L (23-29); Chloride 109 mEq/L (98-107); Glucose 193 mg/dL (70-105); Osmolality,Calculated 296 (280-300); Potassium 3.6 mEq/L (3.5-5.1); Sodium 141 mEq/L (136-145); eGFR For African Americans > 60 (> 60); eGFR For Non-African Americans > 60 (> 60)
[2021-04-05] MEDS: Insulin LISPRO 300 UNITS/3 ML VIAL SUBQ SCH ×5 (08:21→21:26)
[2021-04-05] MEDS: Topiramate 25 MG TABLET PO SCH ×2 (09:26→19:21)
[2021-04-05] MEDS: Aspirin 81 MG TAB.CHEW PO SCH (09:26)
[2021-04-05] MEDS: lisinopriL 5 MG TABLET PO SCH (09:26)
[2021-04-05] MEDS: clonazePAM 0.5 MG TABLET PO SCH ×4 (09:26→19:22)
[2021-04-05] MEDS: *HR* OxyCODONE Immed Rel 5 MG TABLET PO PRN ×2 (09:34→19:21)
[2021-04-05] MEDS: Vitamin B Complex/Vit C/Vit E 1 EACH TABLET PO SCH (10:35)
[2021-04-05] MEDS: Folic Acid 1 MG TABLET PO SCH (10:35)
[2021-04-05] MEDS: Gabapentin 300 MG CAPSULE PO SCH ×3 (10:35→19:21)
[2021-04-05] MEDS: Baclofen 10 MG TABLET PO SCH ×3 (10:35→19:22)
[2021-04-05] MEDS: Propranolol LA (24 HR) 60 MG CAP.SA.24H PO SCH ×2 (10:36→19:21)
[2021-04-05] MEDS: Ascorbic Acid 500 MG TABLET PO SCH (10:36)
[2021-04-05] MEDS: Vancomycin 1,500 MG/265 ML IV.SOLN IVPB SCH ×2 (10:39→21:26)
[2021-04-05] MEDS: risperiDONE 1 MG TABLET PO SCH (19:21)
[2021-04-05] MEDS: Venlafaxine XR (24 HR) 150 MG CAP.ER.24H PO SCH (19:22)
[2021-04-06] MEDS: MetroNIDAZOLE 500 MG/100 ML 500 MG/100 ML BAG IVPB SCH ×3 (00:50→17:23)
[2021-04-06] MEDS: *HR* OxyCODONE Immed Rel 5 MG TABLET PO PRN (01:26)
[2021-04-06 04:55] LABS: BUN/Creatinine Ratio 11 (6-26); Blood Urea Nitrogen 9 mg/dL (6-20); Calcium 7.8 mg/dL (8.6-10.3); Carbon Dioxide 26 mEq/L (23-29); Chloride 111 mEq/L (98-107); Glucose 387 mg/dL (70-105); Osmolality,Calculated 293 (280-300); Potassium 3.4 mEq/L (3.5-5.1); Sodium 134 mEq/L (136-145); eGFR For African Americans > 60 (> 60); eGFR For Non-African Americans > 60 (> 60)
[2021-04-06] MEDS: *HR* Heparin 5,000 UNIT/ML VIAL SQ SCH ×2 (05:22→17:23)
[2021-04-06] MEDS: Insulin LISPRO 300 UNITS/3 ML VIAL SUBQ SCH ×3 (09:23→16:32)
[2021-04-06] MEDS: Topiramate 25 MG TABLET PO SCH (09:24)
[2021-04-06] MEDS: Vancomycin 1,500 MG/265 ML IV.SOLN IVPB SCH ×2 (09:24→17:24)
[2021-04-06] MEDS: Aspirin 81 MG TAB.CHEW PO SCH (09:24)
[2021-04-06] MEDS: Gabapentin 300 MG CAPSULE PO SCH ×2 (09:24→16:28)
[2021-04-06] MEDS: clonazePAM 0.5 MG TABLET PO SCH ×3 (09:24→17:23)
[2021-04-06] MEDS: Ascorbic Acid 500 MG TABLET PO SCH (09:25)
[2021-04-06] MEDS: Vitamin B Complex/Vit C/Vit E 1 EACH TABLET PO SCH (09:25)
[2021-04-06] MEDS: Baclofen 10 MG TABLET PO SCH ×2 (09:25→16:28)
[2021-04-06] MEDS: lisinopriL 5 MG TABLET PO SCH (09:25)
[2021-04-06] MEDS: Folic Acid 1 MG TABLET PO SCH (09:26)
[2021-04-06] MEDS: Propranolol LA (24 HR) 60 MG CAP.SA.24H PO SCH (13:07)
[2021-04-06 18:39] VITALS: BP 160/86; PULSE 51; TEMP 98.4; O2SAT 96
== END 2021-04-06 19:21 | disposition home health service (06) | DRG 477 ==
LOC: EMEROOARM 10:17 → 2NNU 16:13 → SUATTDRO 16:13 → 2NNU 18:04 → 3NENU 03-30 14:46
PROVIDERS: ADMIT Family Medicine; ATTEND Internal Medicine

== ENCOUNTER 2021-04-09 15:57 | Inpatient (IN) ==
[2021-04-09] MEDS ORDERED: Cefepime HCl 1,000 MG in Water for inj. (sterile) 10 ML IVP ONE (16:39)
[2021-04-09 17:48] LABS: White Blood Count 4.8 K/mcL (4.3-11.1)
[2021-04-09 17:49] LABS: Basophils % 0.8 %; Eosinophils # 0.2 K/mcL (0.0-0.6); Eosinophils % 3.7 %; Hematocrit 24.1 % (35.3-44.9); Hemoglobin 7.1 g/dL (11.5-15.4); Immature Granulocytes % 0.6 % (0-4); Lymphocytes # 1.5 K/mcL (0.6-4.6); Lymphocytes % 30.5 %; Mean Corpuscular HGB Conc 29.5 g/dL (31.6-35.5); Mean Corpuscular Hemoglobin 27.1 pg (28.0-33.3); Mean Platelet Volume 10.6 fL (9.4-12.4); Monocytes # 0.2 K/mcL (0.0-1.3); Monocytes % 4.1 %; Neutrophils # 2.9 K/mcL (1.6-8.9); Platelet Count 216 K/mcL (140-400); Red Blood Count 2.62 M/mcL (3.82-4.97); Red Cell Distribution Width 19.3 % (11.5-14.5); Segmented Neutrophils % 60.3 %
[2021-04-09 18:07] LABS: BUN/Creatinine Ratio 10 (6-26); Blood Urea Nitrogen 8 mg/dL (6-20); Calcium 7.9 mg/dL (8.6-10.3); Carbon Dioxide 26 mEq/L (23-29); Chloride 111 mEq/L (98-107); Glucose 126 mg/dL (70-105); Osmolality,Calculated 296 (280-300); Potassium 3.3 mEq/L (3.5-5.1); Sodium 143 mEq/L (136-145); eGFR For African Americans > 60 (> 60); eGFR For Non-African Americans > 60 (> 60)
[2021-04-09 18:10] LABS: C-Reactive Protein 68 mg/L (Less than 10)
[2021-04-09] MEDS ORDERED: Gadolinium Contrast Agent (WT Based) IV PRN (19:15)
[2021-04-09] MEDS ORDERED: Dextrose Gel 15 GM/37.5 ML TUBE PO PRN ×2 (19:50)
[2021-04-09] MEDS ORDERED: *HR* Dextrose 50 % in Water (Syg) 50 ML SYRINGE IVP PRN (19:50)
[2021-04-09] MEDS ORDERED: D5% in Water 1,000 ML IVC PRN (19:50)
[2021-04-09] MEDS ORDERED: Acetaminophen 325 MG TABLET PO PRN (19:52)
[2021-04-09] MEDS ORDERED: Naloxone 0.4 MG/ML INJ IVP PRN (19:52)
[2021-04-09] MEDS ORDERED: Ondansetron 4 MG/2 ML VIAL IVP PRN (19:52)
[2021-04-09] MEDS ORDERED: 0.9 % Sodium Chloride 1,000 ML IVC SCH (20:00)
[2021-04-09] MEDS ORDERED: Potassium Chloride Elixir 20 MEQ/15 ML UDC PO ONE (20:16)
[2021-04-09] MEDS ORDERED: Vancomycin 2,000 MG/520 ML IV.SOLN IVPB SCH (21:00)
[2021-04-09] MEDS ORDERED: Calcium Gluconate 1gm/50mL 1 GM/50 ML BAG IVPB ONE (21:21)
[2021-04-09] MEDS: Propranolol LA (24 HR) 60 MG CAP.SA.24H PO SCH (21:53)
[2021-04-09] MEDS: Gabapentin 300 MG CAPSULE PO SCH (21:53)
[2021-04-09] MEDS: risperiDONE 1 MG TABLET PO SCH (21:53)
[2021-04-09] MEDS: Topiramate 25 MG TABLET PO SCH (21:53)
[2021-04-09] MEDS: clonazePAM 0.5 MG TABLET PO SCH (21:53)
[2021-04-09] MEDS: Baclofen 10 MG TABLET PO SCH (21:53)
[2021-04-09] MEDS: hydrOXYzine pamoate 25 MG CAPSULE PO SCH (21:54)
[2021-04-09 23:52] LABS: Influenza A PCR Negative (Negative); Influenza B PCR Negative (Negative); Resp. Syncytial Virus PCR Negative (Negative); SARS-CoV-2 by PCR (In House) Negative (Negative)
[2021-04-10] MEDS: Insulin LISPRO 300 UNITS/3 ML VIAL SUBQ SCH ×6 (01:00→20:21)
[2021-04-10] MEDS: Vancomycin 1,500 MG/265 ML IV.SOLN IVPB SCH ×2 (04:14→19:48)
[2021-04-10 04:31] LABS: Mean Corpuscular Volume 93.3 fL (83.0-100.0)
[2021-04-10 04:32] LABS: Hematocrit 25.1 % (35.3-44.9); Hemoglobin 7.1 g/dL (11.5-15.4); Mean Corpuscular HGB Conc 28.3 g/dL (31.6-35.5); Mean Corpuscular Hemoglobin 26.4 pg (28.0-33.3); Mean Platelet Volume 10.5 fL (9.4-12.4); Platelet Count 216 K/mcL (140-400); Red Blood Count 2.69 M/mcL (3.82-4.97); Red Cell Distribution Width 19.4 % (11.5-14.5); White Blood Count 3.8 K/mcL (4.3-11.1)
[2021-04-10 05:22] LABS: BUN/Creatinine Ratio 9 (6-26); Blood Urea Nitrogen 7 mg/dL (6-20); Carbon Dioxide 26 mEq/L (23-29); Chloride 111 mEq/L (98-107); Chol/HDL Ratio 3.2 (0-4.9); Cholesterol 68 mg/dL (< 200); Glucose 146 mg/dL (70-105); HDL Cholesterol 21 mg/dL (40-59); Magnesium 1.8 mg/dL (1.6-2.6); Osmolality,Calculated 301 (280-300); Potassium 3.7 mEq/L (3.5-5.1); Sodium 145 mEq/L (136-145); Triglycerides 243 mg/dL (< 150); eGFR For African Americans > 60 (> 60); eGFR For Non-African Americans > 60 (> 60)
[2021-04-10] MEDS ORDERED: Cefepime HCl 2,000 MG in 0.9 % Sodium Chloride Mini Bag 100 ML IVPB SCH (05:45)
[2021-04-10] MEDS: Cefepime HCl 2,000 MG in Water for inj. (sterile) 20 ML IVP SCH ×2 (06:05→19:49)
[2021-04-10 07:25] LABS: Folate > 22.3 ng/mL (3.0-16.0); Vitamin B12 289 pg/mL (250-1100)
[2021-04-10] MEDS ORDERED: Venlafaxine XR (24 HR) 150 MG CAP.ER.24H PO SCH (09:00)
[2021-04-10] MEDS ORDERED: Calcium Gluconate 1gm/50mL 1 GM/50 ML BAG IVPB ONE (09:30)
[2021-04-10] MEDS: clonazePAM 0.5 MG TABLET PO SCH ×4 (12:27→20:20)
[2021-04-10] MEDS: lisinopriL 5 MG TABLET PO SCH (12:27)
[2021-04-10] MEDS: Topiramate 25 MG TABLET PO SCH ×2 (12:27→20:20)
[2021-04-10] MEDS: Propranolol LA (24 HR) 60 MG CAP.SA.24H PO SCH ×2 (12:27→20:20)
[2021-04-10] MEDS: Vitamin B Complex/Vit C/Vit E 1 EACH TABLET PO SCH (12:28)
[2021-04-10] MEDS: Baclofen 10 MG TABLET PO SCH ×3 (12:28→20:20)
[2021-04-10] MEDS: Loratadine 10 MG TABLET PO SCH (12:28)
[2021-04-10] MEDS: Gabapentin 300 MG CAPSULE PO SCH ×3 (12:28→20:20)
[2021-04-10] MEDS: Folic Acid 1 MG TABLET PO SCH (12:28)
[2021-04-10] MEDS: Aspirin 81 MG TAB.CHEW PO SCH (12:29)
[2021-04-10] MEDS: Venlafaxine XR (24 HR) 75 MG CAP.ER.24H PO SCH (12:29)
[2021-04-10] MEDS: hydrOXYzine pamoate 25 MG CAPSULE PO SCH ×3 (12:29→20:20)
[2021-04-10] MEDS: Ascorbic Acid 500 MG TABLET PO SCH (12:29)
[2021-04-10 12:46] LABS: Estimated Average Glucose 128 mg/dl; Hemoglobin A1C 6.1 %
[2021-04-10 19:27] LABS: % Iron Saturation 10 % (15-50); Iron 26 mcg/dL (50-170); Transferrin 183 mg/dL (203-362)
[2021-04-10 19:44] LABS: Ferritin 63 ng/mL (10-120)
[2021-04-10] MEDS: risperiDONE 1 MG TABLET PO SCH (20:20)
[2021-04-10] MEDS: *HR* OxyCODONE Immed Rel 5 MG TABLET PO PRN (20:20)
[2021-04-11] MEDS: *HR* OxyCODONE Immed Rel 5 MG TABLET PO PRN ×2 (01:59→08:08)
[2021-04-11 04:17] LABS: Basophils % 0.9 %; Hemoglobin 7.5 g/dL (11.5-15.4)
[2021-04-11 04:19] LABS: Eosinophils # 0.2 K/mcL (0.0-0.6); Eosinophils % 4.3 %; Hematocrit 26.8 % (35.3-44.9); Immature Granulocytes % 0.7 % (0-4); Lymphocytes # 1.5 K/mcL (0.6-4.6); Lymphocytes % 35.5 %; Mean Corpuscular Hemoglobin 26.3 pg (28.0-33.3); Mean Platelet Volume 10.8 fL (9.4-12.4); Monocytes # 0.2 K/mcL (0.0-1.3); Neutrophils # 2.3 K/mcL (1.6-8.9); Platelet Count 220 K/mcL (140-400); Red Blood Count 2.85 M/mcL (3.82-4.97); Red Cell Distribution Width 19.4 % (11.5-14.5); Segmented Neutrophils % 53.6 %; White Blood Count 4.2 K/mcL (4.3-11.1)
[2021-04-11 04:25] LABS: BUN/Creatinine Ratio 8 (6-26); Blood Urea Nitrogen 7 mg/dL (6-20); Carbon Dioxide 25 mEq/L (23-29); Chloride 108 mEq/L (98-107); Glucose 253 mg/dL (70-105); Osmolality,Calculated 295 (280-300); Potassium 3.7 mEq/L (3.5-5.1); Sodium 139 mEq/L (136-145); eGFR For African Americans > 60 (> 60); eGFR For Non-African Americans > 60 (> 60)
[2021-04-11 04:45] LABS: Anisocytosis 1+ (Not Present); Hypochromasia Present (Not Present); Platelet Estimate Normal (Normal); Polychromasia 1+ (Not Present)
[2021-04-11] MEDS: Cefepime HCl 2,000 MG in Water for inj. (sterile) 20 ML IVP SCH ×2 (05:08→17:38)
[2021-04-11] MEDS: Vancomycin 1,500 MG/265 ML IV.SOLN IVPB SCH (05:09)
[2021-04-11] MEDS: lisinopriL 5 MG TABLET PO SCH (08:08)
[2021-04-11] MEDS: Aspirin 81 MG TAB.CHEW PO SCH (08:08)
[2021-04-11] MEDS: Gabapentin 300 MG CAPSULE PO SCH ×3 (08:08→20:49)
[2021-04-11] MEDS: Propranolol LA (24 HR) 60 MG CAP.SA.24H PO SCH ×2 (08:09→20:48)
[2021-04-11] MEDS: Topiramate 25 MG TABLET PO SCH ×2 (08:09→20:49)
[2021-04-11] MEDS: Folic Acid 1 MG TABLET PO SCH (08:09)
[2021-04-11] MEDS: Ascorbic Acid 500 MG TABLET PO SCH (08:09)
[2021-04-11] MEDS: clonazePAM 0.5 MG TABLET PO SCH ×4 (08:09→20:49)
[2021-04-11] MEDS: hydrOXYzine pamoate 25 MG CAPSULE PO SCH ×3 (08:09→20:49)
[2021-04-11] MEDS: Vitamin B Complex/Vit C/Vit E 1 EACH TABLET PO SCH (08:09)
[2021-04-11] MEDS: Insulin LISPRO 300 UNITS/3 ML VIAL SUBQ SCH ×4 (08:10→20:49)
[2021-04-11] MEDS: Loratadine 10 MG TABLET PO SCH (08:10)
[2021-04-11] MEDS: Baclofen 10 MG TABLET PO SCH ×3 (08:10→20:48)
[2021-04-11] MEDS: Venlafaxine XR (24 HR) 75 MG CAP.ER.24H PO SCH (08:10)
[2021-04-11] MEDS ORDERED: Calcium Gluconate 1gm/50mL 1 GM/50 ML BAG IVPB ONE (09:27)
[2021-04-11] MEDS ORDERED: Iron Sucrose Complex 400 MG in 0.9 % Sodium Chloride 250 ML IVPB ONE (09:31)
[2021-04-11] MEDS: Vancomycin 1,250 MG/262.5 ML IV.SOLN IVPB SCH (17:38)
[2021-04-11] MEDS: risperiDONE 1 MG TABLET PO SCH (20:48)
[2021-04-12 04:17] LABS: Eosinophils # 0.2 K/mcL (0.0-0.6); Eosinophils % 4.6 %; Hematocrit 26.5 % (35.3-44.9); Hemoglobin 7.9 g/dL (11.5-15.4); Immature Granulocytes % 0.5 % (0-4); Lymphocytes # 1.4 K/mcL (0.6-4.6); Mean Corpuscular HGB Conc 29.8 g/dL (31.6-35.5); Mean Corpuscular Hemoglobin 27.3 pg (28.0-33.3); Mean Corpuscular Volume 91.7 fL (83.0-100.0); Mean Platelet Volume 10.5 fL (9.4-12.4); Monocytes # 0.2 K/mcL (0.0-1.3); Monocytes % 4.3 %; Neutrophils # 2.1 K/mcL (1.6-8.9); Nucleated Red Blood Cells 0.5 /100 WBC (0); Platelet Count 219 K/mcL (140-400); Red Blood Count 2.89 M/mcL (3.82-4.97); Red Cell Distribution Width 19.4 % (11.5-14.5); Segmented Neutrophils % 54.6 %; White Blood Count 3.9 K/mcL (4.3-11.1)
[2021-04-12 04:35] LABS: BUN/Creatinine Ratio 8 (6-26); Blood Urea Nitrogen 7 mg/dL (6-20); Calcium 8.4 mg/dL (8.6-10.3); Carbon Dioxide 26 mEq/L (23-29); Chloride 110 mEq/L (98-107); Glucose 136 mg/dL (70-105); Osmolality,Calculated 292 (280-300); Potassium 4.2 mEq/L (3.5-5.1); Sodium 141 mEq/L (136-145); eGFR For African Americans > 60 (> 60); eGFR For Non-African Americans > 60 (> 60)
[2021-04-12] MEDS: Cefepime HCl 2,000 MG in Water for inj. (sterile) 20 ML IVP SCH ×2 (05:03→17:09)
[2021-04-12] MEDS: Vancomycin 1,250 MG/262.5 ML IV.SOLN IVPB SCH ×2 (05:03→17:08)
[2021-04-12] MEDS: Insulin LISPRO 300 UNITS/3 ML VIAL SUBQ SCH ×4 (07:56→21:49)
[2021-04-12] MEDS: Ascorbic Acid 500 MG TABLET PO SCH (08:34)
[2021-04-12] MEDS: Propranolol LA (24 HR) 60 MG CAP.SA.24H PO SCH ×2 (08:34→21:36)
[2021-04-12] MEDS: Folic Acid 1 MG TABLET PO SCH (08:34)
[2021-04-12] MEDS: Topiramate 25 MG TABLET PO SCH ×2 (08:35→21:48)
[2021-04-12] MEDS: Aspirin 81 MG TAB.CHEW PO SCH (08:35)
[2021-04-12] MEDS: lisinopriL 5 MG TABLET PO SCH (08:35)
[2021-04-12] MEDS: clonazePAM 0.5 MG TABLET PO SCH ×4 (08:35→21:48)
[2021-04-12] MEDS: Baclofen 10 MG TABLET PO SCH ×3 (08:35→21:48)
[2021-04-12] MEDS: Vitamin B Complex/Vit C/Vit E 1 EACH TABLET PO SCH (08:35)
[2021-04-12] MEDS: hydrOXYzine pamoate 25 MG CAPSULE PO SCH ×3 (08:35→21:49)
[2021-04-12] MEDS: Venlafaxine XR (24 HR) 75 MG CAP.ER.24H PO SCH (08:35)
[2021-04-12] MEDS: Gabapentin 300 MG CAPSULE PO SCH ×3 (08:36→21:48)
[2021-04-12] MEDS: Loratadine 10 MG TABLET PO SCH (08:36)
[2021-04-12] MEDS: *HR* OxyCODONE Immed Rel 5 MG TABLET PO PRN (08:39)
[2021-04-12] MEDS: risperiDONE 1 MG TABLET PO SCH (21:48)
[2021-04-13 06:05] LABS: Basophils # 0.1 K/mcL (0.0-0.2); Basophils % 1.9 %; Eosinophils # 0.2 K/mcL (0.0-0.6); Eosinophils % 5.4 %; Hematocrit 26.3 % (35.3-44.9); Hemoglobin 7.7 g/dL (11.5-15.4); Immature Granulocytes % 0.9 % (0-4); Lymphocytes # 1.3 K/mcL (0.6-4.6); Lymphocytes % 42.4 %; Mean Corpuscular HGB Conc 29.3 g/dL (31.6-35.5); Mean Corpuscular Hemoglobin 27.1 pg (28.0-33.3); Mean Corpuscular Volume 92.6 fL (83.0-100.0); Mean Platelet Volume 10.6 fL (9.4-12.4); Monocytes # 0.1 K/mcL (0.0-1.3); Monocytes % 4.4 %; Neutrophils # 1.4 K/mcL (1.6-8.9); Platelet Count 216 K/mcL (140-400); Red Blood Count 2.84 M/mcL (3.82-4.97); Red Cell Distribution Width 19.2 % (11.5-14.5); White Blood Count 3.2 K/mcL (4.3-11.1)
[2021-04-13 06:14] LABS: BUN/Creatinine Ratio 7 (6-26); Blood Urea Nitrogen 6 mg/dL (6-20); Carbon Dioxide 28 mEq/L (23-29); Chloride 109 mEq/L (98-107); Glucose 153 mg/dL (70-105); Osmolality,Calculated 293 (280-300); Sodium 141 mEq/L (136-145); Vancomycin,Trough 13 mcg/mL (5-10); eGFR For African Americans > 60 (> 60); eGFR For Non-African Americans > 60 (> 60)
[2021-04-13] MEDS: Cefepime HCl 2,000 MG in Water for inj. (sterile) 20 ML IVP SCH ×2 (06:28→17:27)
[2021-04-13] MEDS: *HR* OxyCODONE Immed Rel 5 MG TABLET PO PRN ×2 (06:29→12:30)
[2021-04-13] MEDS: Vancomycin 1,250 MG/262.5 ML IV.SOLN IVPB SCH ×2 (06:29→17:50)
[2021-04-13] MEDS: Insulin LISPRO 300 UNITS/3 ML VIAL SUBQ SCH ×4 (07:27→21:55)
[2021-04-13] MEDS: Vitamin B Complex/Vit C/Vit E 1 EACH TABLET PO SCH (07:45)
[2021-04-13] MEDS: Aspirin 81 MG TAB.CHEW PO SCH (07:45)
[2021-04-13] MEDS: Ascorbic Acid 500 MG TABLET PO SCH (07:45)
[2021-04-13] MEDS: lisinopriL 5 MG TABLET PO SCH (07:45)
[2021-04-13] MEDS: Gabapentin 300 MG CAPSULE PO SCH ×3 (07:45→21:50)
[2021-04-13] MEDS: Folic Acid 1 MG TABLET PO SCH (07:45)
[2021-04-13] MEDS: clonazePAM 0.5 MG TABLET PO SCH ×4 (07:46→21:50)
[2021-04-13] MEDS: Topiramate 25 MG TABLET PO SCH ×2 (07:46→21:50)
[2021-04-13] MEDS: Baclofen 10 MG TABLET PO SCH ×3 (07:46→21:51)
[2021-04-13] MEDS: hydrOXYzine pamoate 25 MG CAPSULE PO SCH ×3 (07:46→21:52)
[2021-04-13] MEDS: Propranolol LA (24 HR) 60 MG CAP.SA.24H PO SCH ×2 (07:46→21:51)
[2021-04-13] MEDS: Venlafaxine XR (24 HR) 75 MG CAP.ER.24H PO SCH (07:46)
[2021-04-13] MEDS: Loratadine 10 MG TABLET PO SCH (07:46)
[2021-04-13] MEDS ORDERED: Calcium Gluconate 1gm/50mL 1 GM/50 ML BAG IVPB ONE (11:34)
[2021-04-13] MEDS: risperiDONE 1 MG TABLET PO SCH (21:50)
[2021-04-14] MEDS: Cefepime HCl 2,000 MG in Water for inj. (sterile) 20 ML IVP SCH ×2 (05:30→18:09)
[2021-04-14] MEDS: Vancomycin 1,250 MG/262.5 ML IV.SOLN IVPB SCH ×2 (05:40→18:10)
[2021-04-14 06:09] LABS: Hemoglobin 7.8 g/dL (11.5-15.4); Mean Corpuscular Volume 92.8 fL (83.0-100.0)
[2021-04-14 06:13] LABS: Basophils % 1.5 %; Eosinophils # 0.2 K/mcL (0.0-0.6); Eosinophils % 5.5 %; Hematocrit 27.2 % (35.3-44.9); Immature Granulocytes % 1.1 % (0-4); Lymphocytes # 1.1 K/mcL (0.6-4.6); Lymphocytes % 40.7 %; Mean Corpuscular HGB Conc 28.7 g/dL (31.6-35.5); Mean Corpuscular Hemoglobin 26.6 pg (28.0-33.3); Mean Platelet Volume 10.9 fL (9.4-12.4); Monocytes # 0.1 K/mcL (0.0-1.3); Neutrophils # 1.3 K/mcL (1.6-8.9); Nucleated Red Blood Cells 0.7 /100 WBC (0); Platelet Count 183 K/mcL (140-400); Red Blood Count 2.93 M/mcL (3.82-4.97); Red Cell Distribution Width 18.8 % (11.5-14.5); Segmented Neutrophils % 47.2 %; White Blood Count 2.7 K/mcL (4.3-11.1)
[2021-04-14 06:18] LABS: BUN/Creatinine Ratio 11 (6-26); Blood Urea Nitrogen 9 mg/dL (6-20); Calcium 8.1 mg/dL (8.6-10.3); Carbon Dioxide 29 mEq/L (23-29); Chloride 106 mEq/L (98-107); Glucose 158 mg/dL (70-105); Osmolality,Calculated 288 (280-300); Potassium 4.2 mEq/L (3.5-5.1); Sodium 138 mEq/L (136-145); eGFR For African Americans > 60 (> 60); eGFR For Non-African Americans > 60 (> 60)
[2021-04-14] MEDS: Vitamin B Complex/Vit C/Vit E 1 EACH TABLET PO SCH (07:37)
[2021-04-14] MEDS: Folic Acid 1 MG TABLET PO SCH (07:37)
[2021-04-14] MEDS: clonazePAM 0.5 MG TABLET PO SCH ×4 (07:37→21:07)
[2021-04-14] MEDS: hydrOXYzine pamoate 25 MG CAPSULE PO SCH ×3 (07:37→21:07)
[2021-04-14] MEDS: Topiramate 25 MG TABLET PO SCH ×2 (07:37→21:07)
[2021-04-14] MEDS: Venlafaxine XR (24 HR) 75 MG CAP.ER.24H PO SCH (07:37)
[2021-04-14] MEDS: Baclofen 10 MG TABLET PO SCH ×3 (07:38→21:08)
[2021-04-14] MEDS: Gabapentin 300 MG CAPSULE PO SCH ×3 (07:38→21:07)
[2021-04-14] MEDS: Insulin LISPRO 300 UNITS/3 ML VIAL SUBQ SCH ×4 (07:38→21:08)
[2021-04-14] MEDS: Loratadine 10 MG TABLET PO SCH (07:38)
[2021-04-14] MEDS: Ascorbic Acid 500 MG TABLET PO SCH (07:38)
[2021-04-14] MEDS: Propranolol LA (24 HR) 60 MG CAP.SA.24H PO SCH ×2 (07:38→21:08)
[2021-04-14] MEDS: lisinopriL 5 MG TABLET PO SCH (07:38)
[2021-04-14] MEDS: Aspirin 81 MG TAB.CHEW PO SCH (07:38)
[2021-04-14] MEDS: *HR* OxyCODONE Immed Rel 5 MG TABLET PO PRN ×2 (07:47→18:09)
[2021-04-14 07:51] LABS: Anisocytosis 1+ (Not Present); Hypochromasia Present (Not Present); Platelet Estimate Normal (Normal)
[2021-04-14] MEDS: risperiDONE 1 MG TABLET PO SCH (21:07)
[2021-04-15] MEDS: *HR* OxyCODONE Immed Rel 5 MG TABLET PO PRN ×3 (00:07→23:40)
[2021-04-15] MEDS: Cefepime HCl 2,000 MG in Water for inj. (sterile) 20 ML IVP SCH ×2 (05:35→18:25)
[2021-04-15 06:05] LABS: Basophils % 1.2 %; Eosinophils # 0.2 K/mcL (0.0-0.6); Eosinophils % 5.5 %; Hematocrit 26.9 % (35.3-44.9); Hemoglobin 7.8 g/dL (11.5-15.4); Immature Granulocytes % 0.6 % (0-4); Lymphocytes # 1.5 K/mcL (0.6-4.6); Lymphocytes % 44.7 %; Mean Corpuscular Hemoglobin 26.7 pg (28.0-33.3); Mean Corpuscular Volume 92.1 fL (83.0-100.0); Mean Platelet Volume 10.7 fL (9.4-12.4); Monocytes # 0.2 K/mcL (0.0-1.3); Monocytes % 5.2 %; Neutrophils # 1.4 K/mcL (1.6-8.9); Platelet Count 183 K/mcL (140-400); Red Blood Count 2.92 M/mcL (3.82-4.97); Red Cell Distribution Width 18.7 % (11.5-14.5); Segmented Neutrophils % 42.8 %; White Blood Count 3.3 K/mcL (4.3-11.1)
[2021-04-15 06:34] LABS: Alanine Aminotransferase 10 Units/L (7-52); Albumin 3.3 g/dL (3.5-5.7); Albumin/Globulin Ratio 1.3 (1.1-2.2); Alkaline Phosphatase 73 Units/L (34-104); Aspartate Amino Transferase 14 Units/L (13-39); BUN/Creatinine Ratio 11 (6-26); Bilirubin,Total 0.5 mg/dL (0.3-1.0); Blood Urea Nitrogen 10 mg/dL (6-20); Calcium 8.5 mg/dL (8.6-10.3); Carbon Dioxide 28 mEq/L (23-29); Chloride 108 mEq/L (98-107); Globulin 2.5 g/dL (2.4-3.5); Glucose 144 mg/dL (70-105); Osmolality,Calculated 292 (280-300); Sodium 140 mEq/L (136-145); Total Protein 5.8 g/dL (6.4-8.9); Vancomycin,Trough 15 mcg/mL (5-10); eGFR For African Americans > 60 (> 60); eGFR For Non-African Americans > 60 (> 60)
[2021-04-15] MEDS: Vitamin B Complex/Vit C/Vit E 1 EACH TABLET PO SCH (08:38)
[2021-04-15] MEDS: Insulin LISPRO 300 UNITS/3 ML VIAL SUBQ SCH ×4 (08:38→23:42)
[2021-04-15] MEDS: Gabapentin 300 MG CAPSULE PO SCH ×3 (08:38→23:36)
[2021-04-15] MEDS: clonazePAM 0.5 MG TABLET PO SCH ×4 (08:38→23:36)
[2021-04-15] MEDS: hydrOXYzine pamoate 25 MG CAPSULE PO SCH ×3 (08:38→23:36)
[2021-04-15] MEDS: Ascorbic Acid 500 MG TABLET PO SCH (08:39)
[2021-04-15] MEDS: Folic Acid 1 MG TABLET PO SCH (08:39)
[2021-04-15] MEDS: Topiramate 25 MG TABLET PO SCH ×2 (08:39→23:36)
[2021-04-15] MEDS: Propranolol LA (24 HR) 60 MG CAP.SA.24H PO SCH ×2 (08:40→23:36)
[2021-04-15] MEDS: lisinopriL 5 MG TABLET PO SCH (08:40)
[2021-04-15] MEDS: Loratadine 10 MG TABLET PO SCH (08:40)
[2021-04-15] MEDS: Venlafaxine XR (24 HR) 75 MG CAP.ER.24H PO SCH (08:40)
[2021-04-15] MEDS: Baclofen 10 MG TABLET PO SCH ×3 (08:40→23:36)
[2021-04-15] MEDS: Aspirin 81 MG TAB.CHEW PO SCH (08:43)
[2021-04-15] MEDS: Vancomycin 1,250 MG/262.5 ML IV.SOLN IVPB SCH ×2 (09:17→18:29)
[2021-04-15] MEDS ORDERED: *HR* Propofol 200 MG/20 ML VIAL IVP ONE ×3 (11:51→12:32)
[2021-04-15] MEDS ORDERED: *HR* Midazolam HCl 2 MG/2 ML VIAL ONE (11:51)
[2021-04-15] MEDS ORDERED: Lidocaine -MPF 2% 5 ML VIAL ONE ×2 (11:51→12:32)
[2021-04-15] MEDS ORDERED: *HR* Succinylcholine 200 MG/10 ML VIAL IVP ONE ×2 (11:51→12:32)
[2021-04-15] MEDS ORDERED: *HR* FentaNYL (PF) 100 MCG/2 ML VIAL ONE ×3 (11:51→15:30)
[2021-04-15] MEDS ORDERED: Lidocaine -MPF 4% 5 ML AMPUL ONE (12:32)
[2021-04-15] MEDS ORDERED: Ondansetron 4 MG/2 ML VIAL ONE ×2 (12:32→14:47)
[2021-04-15] MEDS ORDERED: EPHEDrine 50 MG/ML VIAL ONE (14:36)
[2021-04-15] MEDS ORDERED: Acetaminophen IV 1,000 MG/100 ML BAG IVPB ONE (15:40)
[2021-04-15] MEDS ORDERED: Albuterol 2.5 MG/3 ML NEBULIZER IH ONE (17:36)
[2021-04-15] MEDS ORDERED: Albuterol 2.5 MG/3 ML NEBULIZER ONE (17:38)
[2021-04-15] MEDS ORDERED: Gabapentin 100 MG CAPSULE ONE (18:21)
[2021-04-15] MEDS ORDERED: Gabapentin 100 MG CAPSULE PO ONE (18:23)
[2021-04-15] MEDS: risperiDONE 1 MG TABLET PO SCH (23:36)
[2021-04-15] MEDS: tiZANidine 4 MG TABLET PO PRN (23:40)
[2021-04-16 05:21] LABS: BUN/Creatinine Ratio 11 (6-26); Blood Urea Nitrogen 10 mg/dL (6-20); Calcium 8.4 mg/dL (8.6-10.3); Carbon Dioxide 26 mEq/L (23-29); Chloride 106 mEq/L (98-107); Glucose 240 mg/dL (70-105); Osmolality,Calculated 293 (280-300); Potassium 4.9 mEq/L (3.5-5.1); Sodium 138 mEq/L (136-145); eGFR For African Americans > 60 (> 60); eGFR For Non-African Americans > 60 (> 60)
[2021-04-16 05:24] LABS: Hematocrit 26.5 % (35.3-44.9); Mean Corpuscular HGB Conc 30.2 g/dL (31.6-35.5); Mean Corpuscular Hemoglobin 27.2 pg (28.0-33.3); Mean Corpuscular Volume 90.1 fL (83.0-100.0); Mean Platelet Volume 10.8 fL (9.4-12.4); Platelet Count 202 K/mcL (140-400); Red Blood Count 2.94 M/mcL (3.82-4.97); Red Cell Distribution Width 18.2 % (11.5-14.5); White Blood Count 4.1 K/mcL (4.3-11.1)
[2021-04-16] MEDS: *HR* OxyCODONE Immed Rel 5 MG TABLET PO PRN ×3 (05:40→16:44)
[2021-04-16] MEDS: Cefepime HCl 2,000 MG in Water for inj. (sterile) 20 ML IVP SCH ×2 (05:40→17:49)
[2021-04-16] MEDS: Vancomycin 1,250 MG/262.5 ML IV.SOLN IVPB SCH ×2 (05:44→17:51)
[2021-04-16] MEDS: Vitamin B Complex/Vit C/Vit E 1 EACH TABLET PO SCH (08:30)
[2021-04-16] MEDS: Gabapentin 300 MG CAPSULE PO SCH ×3 (08:30→21:11)
[2021-04-16] MEDS: Aspirin 81 MG TAB.CHEW PO SCH (08:31)
[2021-04-16] MEDS: Topiramate 25 MG TABLET PO SCH ×2 (08:32→21:11)
[2021-04-16] MEDS: clonazePAM 0.5 MG TABLET PO SCH ×4 (08:33→21:12)
[2021-04-16] MEDS: Venlafaxine XR (24 HR) 75 MG CAP.ER.24H PO SCH (08:34)
[2021-04-16] MEDS: Loratadine 10 MG TABLET PO SCH (08:34)
[2021-04-16] MEDS: hydrOXYzine pamoate 25 MG CAPSULE PO SCH ×3 (08:34→21:11)
[2021-04-16] MEDS: Folic Acid 1 MG TABLET PO SCH (08:35)
[2021-04-16] MEDS: Baclofen 10 MG TABLET PO SCH ×3 (08:35→21:11)
[2021-04-16] MEDS: Ascorbic Acid 500 MG TABLET PO SCH (08:35)
[2021-04-16] MEDS: lisinopriL 5 MG TABLET PO SCH (08:36)
[2021-04-16] MEDS: Propranolol LA (24 HR) 60 MG CAP.SA.24H PO SCH ×2 (08:37→21:12)
[2021-04-16] MEDS: Insulin LISPRO 300 UNITS/3 ML VIAL SUBQ SCH ×4 (08:38→21:12)
[2021-04-16] MEDS ORDERED: *HR* Alteplase (Cathflo) 2 MG VIAL IVP ONE (11:18)
[2021-04-16] MEDS: *HR* HYDROmorphone (PF) 1 MG/ML SYRINGE IVP PRN (13:59)
[2021-04-16] MEDS: risperiDONE 1 MG TABLET PO SCH (21:11)
[2021-04-17 05:22] LABS: Hemoglobin 7.6 g/dL (11.5-15.4); Mean Corpuscular HGB Conc 29.2 g/dL (31.6-35.5); Mean Corpuscular Hemoglobin 27.2 pg (28.0-33.3); Mean Corpuscular Volume 93.2 fL (83.0-100.0); Mean Platelet Volume 10.2 fL (9.4-12.4); Platelet Count 165 K/mcL (140-400); Red Blood Count 2.79 M/mcL (3.82-4.97); Red Cell Distribution Width 18.7 % (11.5-14.5); White Blood Count 3.6 K/mcL (4.3-11.1)
[2021-04-17 05:38] LABS: BUN/Creatinine Ratio 14 (6-26); Blood Urea Nitrogen 14 mg/dL (6-20); Calcium 8.3 mg/dL (8.6-10.3); Carbon Dioxide 28 mEq/L (23-29); Chloride 107 mEq/L (98-107); Glucose 169 mg/dL (70-105); Osmolality,Calculated 292 (280-300); Potassium 4.1 mEq/L (3.5-5.1); Sodium 139 mEq/L (136-145); Vancomycin,Trough 15 mcg/mL (5-10); eGFR For African Americans > 60 (> 60); eGFR For Non-African Americans > 60 (> 60)
[2021-04-17] MEDS: Vancomycin 1,250 MG/262.5 ML IV.SOLN IVPB SCH ×2 (06:04→18:19)
[2021-04-17] MEDS: Cefepime HCl 2,000 MG in Water for inj. (sterile) 20 ML IVP SCH ×2 (06:04→17:23)
[2021-04-17] MEDS: hydrOXYzine pamoate 25 MG CAPSULE PO SCH ×3 (08:50→21:04)
[2021-04-17] MEDS: Propranolol LA (24 HR) 60 MG CAP.SA.24H PO SCH ×2 (08:51→21:05)
[2021-04-17] MEDS: Venlafaxine XR (24 HR) 75 MG CAP.ER.24H PO SCH (08:51)
[2021-04-17] MEDS: Topiramate 25 MG TABLET PO SCH ×2 (08:51→21:04)
[2021-04-17] MEDS: clonazePAM 0.5 MG TABLET PO SCH ×2 (08:52→21:04)
[2021-04-17] MEDS: Gabapentin 300 MG CAPSULE PO SCH ×3 (08:52→21:05)
[2021-04-17] MEDS: Folic Acid 1 MG TABLET PO SCH (08:52)
[2021-04-17] MEDS: Baclofen 10 MG TABLET PO SCH ×3 (08:52→21:04)
[2021-04-17] MEDS: Aspirin 81 MG TAB.CHEW PO SCH (08:53)
[2021-04-17] MEDS: Ascorbic Acid 500 MG TABLET PO SCH (08:53)
[2021-04-17] MEDS: Vitamin B Complex/Vit C/Vit E 1 EACH TABLET PO SCH (08:53)
[2021-04-17] MEDS: Loratadine 10 MG TABLET PO SCH (08:53)
[2021-04-17] MEDS: Insulin LISPRO 300 UNITS/3 ML VIAL SUBQ SCH ×4 (08:54→20:42)
[2021-04-17] MEDS: lisinopriL 5 MG TABLET PO SCH (10:29)
[2021-04-17] MEDS: *HR* OxyCODONE Immed Rel 5 MG TABLET PO PRN ×2 (12:27→21:05)
[2021-04-17] MEDS: *HR* HYDROmorphone (PF) 1 MG/ML SYRINGE IVP PRN (15:15)
[2021-04-17] MEDS: risperiDONE 1 MG TABLET PO SCH (21:04)
[2021-04-18] MEDS: *HR* OxyCODONE Immed Rel 5 MG TABLET PO PRN ×3 (02:48→22:17)
[2021-04-18] MEDS: Cefepime HCl 2,000 MG in Water for inj. (sterile) 20 ML IVP SCH ×2 (06:45→16:57)
[2021-04-18] MEDS: *HR* HYDROmorphone (PF) 1 MG/ML SYRINGE IVP PRN ×3 (06:45→16:58)
[2021-04-18] MEDS: Vancomycin 1,250 MG/262.5 ML IV.SOLN IVPB SCH ×2 (06:46→18:27)
[2021-04-18] MEDS: Propranolol LA (24 HR) 60 MG CAP.SA.24H PO SCH ×2 (09:28→22:19)
[2021-04-18] MEDS: hydrOXYzine pamoate 25 MG CAPSULE PO SCH ×3 (09:28→22:17)
[2021-04-18] MEDS: Venlafaxine XR (24 HR) 75 MG CAP.ER.24H PO SCH (09:28)
[2021-04-18] MEDS: Aspirin 81 MG TAB.CHEW PO SCH (09:29)
[2021-04-18] MEDS: Ascorbic Acid 500 MG TABLET PO SCH (09:29)
[2021-04-18] MEDS: Loratadine 10 MG TABLET PO SCH (09:29)
[2021-04-18] MEDS: Topiramate 25 MG TABLET PO SCH ×2 (09:29→22:17)
[2021-04-18] MEDS: Vitamin B Complex/Vit C/Vit E 1 EACH TABLET PO SCH (09:30)
[2021-04-18] MEDS: Folic Acid 1 MG TABLET PO SCH (09:30)
[2021-04-18] MEDS: Baclofen 10 MG TABLET PO SCH ×3 (09:30→22:18)
[2021-04-18] MEDS: clonazePAM 0.5 MG TABLET PO SCH ×2 (09:30→22:18)
[2021-04-18] MEDS: Gabapentin 300 MG CAPSULE PO SCH ×3 (09:31→22:18)
[2021-04-18] MEDS: Insulin LISPRO 300 UNITS/3 ML VIAL SUBQ SCH ×4 (09:32→22:00)
[2021-04-18] MEDS: lisinopriL 5 MG TABLET PO SCH (09:33)
[2021-04-18 12:23] LABS: BUN/Creatinine Ratio 14 (6-26); Blood Urea Nitrogen 11 mg/dL (6-20); eGFR For African Americans > 60 (> 60); eGFR For Non-African Americans > 60 (> 60)
[2021-04-18] MEDS: risperiDONE 1 MG TABLET PO SCH (22:17)
[2021-04-19] MEDS: *HR* OxyCODONE Immed Rel 5 MG TABLET PO PRN ×3 (04:38→21:49)
[2021-04-19] MEDS: Cefepime HCl 2,000 MG in Water for inj. (sterile) 20 ML IVP SCH ×2 (04:40→17:17)
[2021-04-19 05:03] LABS: Hematocrit 28.1 % (35.3-44.9); Hemoglobin 8.2 g/dL (11.5-15.4); Mean Corpuscular HGB Conc 29.2 g/dL (31.6-35.5); Mean Corpuscular Hemoglobin 26.5 pg (28.0-33.3); Mean Corpuscular Volume 90.6 fL (83.0-100.0); Mean Platelet Volume 10.3 fL (9.4-12.4); Platelet Count 156 K/mcL (140-400); Red Cell Distribution Width 18.2 % (11.5-14.5); White Blood Count 3.8 K/mcL (4.3-11.1)
[2021-04-19 05:17] LABS: BUN/Creatinine Ratio 16 (6-26); Blood Urea Nitrogen 12 mg/dL (6-20); Carbon Dioxide 28 mEq/L (23-29); Chloride 106 mEq/L (98-107); Glucose 158 mg/dL (70-105); Osmolality,Calculated 293 (280-300); Potassium 4.3 mEq/L (3.5-5.1); Sodium 140 mEq/L (136-145); Vancomycin,Trough 17 mcg/mL (5-10); eGFR For African Americans > 60 (> 60); eGFR For Non-African Americans > 60 (> 60)
[2021-04-19] MEDS: Vancomycin 1,250 MG/262.5 ML IV.SOLN IVPB SCH ×2 (05:48→17:57)
[2021-04-19] MEDS: Venlafaxine XR (24 HR) 75 MG CAP.ER.24H PO SCH (08:12)
[2021-04-19] MEDS: Propranolol LA (24 HR) 60 MG CAP.SA.24H PO SCH ×2 (08:12→21:48)
[2021-04-19] MEDS: Folic Acid 1 MG TABLET PO SCH (08:12)
[2021-04-19] MEDS: lisinopriL 5 MG TABLET PO SCH (08:12)
[2021-04-19] MEDS: Vitamin B Complex/Vit C/Vit E 1 EACH TABLET PO SCH (08:12)
[2021-04-19] MEDS: Aspirin 81 MG TAB.CHEW PO SCH (08:12)
[2021-04-19] MEDS: Ascorbic Acid 500 MG TABLET PO SCH (08:12)
[2021-04-19] MEDS: Insulin LISPRO 300 UNITS/3 ML VIAL SUBQ SCH ×4 (08:13→21:47)
[2021-04-19] MEDS: Gabapentin 300 MG CAPSULE PO SCH ×3 (08:13→21:49)
[2021-04-19] MEDS: hydrOXYzine pamoate 25 MG CAPSULE PO SCH ×3 (08:13→21:48)
[2021-04-19] MEDS: Topiramate 25 MG TABLET PO SCH ×2 (08:13→21:48)
[2021-04-19] MEDS: Baclofen 10 MG TABLET PO SCH ×3 (08:13→21:48)
[2021-04-19] MEDS: clonazePAM 0.5 MG TABLET PO SCH ×2 (08:13→21:48)
[2021-04-19] MEDS: Loratadine 10 MG TABLET PO SCH (08:13)
[2021-04-19] MEDS: tiZANidine 4 MG TABLET PO PRN (21:48)
[2021-04-19] MEDS: risperiDONE 1 MG TABLET PO SCH (21:49)
[2021-04-20] MEDS: Vancomycin 1,250 MG/262.5 ML IV.SOLN IVPB SCH (06:54)
[2021-04-20] MEDS: Cefepime HCl 2,000 MG in Water for inj. (sterile) 20 ML IVP SCH (06:54)
[2021-04-20] MEDS: lisinopriL 5 MG TABLET PO SCH (07:50)
[2021-04-20] MEDS: hydrOXYzine pamoate 25 MG CAPSULE PO SCH ×2 (07:50→15:01)
[2021-04-20] MEDS: Propranolol LA (24 HR) 60 MG CAP.SA.24H PO SCH (07:50)
[2021-04-20] MEDS: Baclofen 10 MG TABLET PO SCH ×2 (07:50→15:01)
[2021-04-20] MEDS: Ascorbic Acid 500 MG TABLET PO SCH (07:50)
[2021-04-20] MEDS: Gabapentin 300 MG CAPSULE PO SCH ×2 (07:51→15:01)
[2021-04-20] MEDS: clonazePAM 0.5 MG TABLET PO SCH (07:51)
[2021-04-20] MEDS: Folic Acid 1 MG TABLET PO SCH (07:51)
[2021-04-20] MEDS: Topiramate 25 MG TABLET PO SCH (07:51)
[2021-04-20] MEDS: Vitamin B Complex/Vit C/Vit E 1 EACH TABLET PO SCH (07:52)
[2021-04-20] MEDS: Venlafaxine XR (24 HR) 75 MG CAP.ER.24H PO SCH (07:52)
[2021-04-20] MEDS: Loratadine 10 MG TABLET PO SCH (07:52)
[2021-04-20] MEDS: Aspirin 81 MG TAB.CHEW PO SCH (07:52)
[2021-04-20] MEDS: Insulin LISPRO 300 UNITS/3 ML VIAL SUBQ SCH ×2 (07:53→13:29)
[2021-04-20] MEDS: *HR* OxyCODONE Immed Rel 5 MG TABLET PO PRN ×2 (08:02→15:01)
[2021-04-20] MEDS ORDERED: Ipratropium/Albuterol Neb 3 ML IH PRN (10:08)
[2021-04-20 11:54] VITALS: BP 116/76; PULSE 53; TEMP 98.4; O2SAT 95
[2021-04-20] MEDS ORDERED: FLU Vac QV 21-22 (6Month+)/PF 0.5 ML SYRINGE IM ONE (12:43)
[2021-04-20 14:24] LABS: Influenza A PCR Negative (Negative); Influenza B PCR Negative (Negative); Resp. Syncytial Virus PCR Negative (Negative)
[2021-04-20 14:26] LABS: SARS-CoV-2 by PCR (In House) Negative (Negative)
== END 2021-04-20 15:10 | DRG 982 ==
LOC: EMEROOARM 15:57 → SUATTDRO 18:17 → 4WAOSI 18:17
PROVIDERS: ADMIT Internal Medicine; ATTEND Internal Medicine

== ENCOUNTER 2021-11-23 12:20 | Inpatient (IN) ==
[2021-11-23] MEDS ORDERED: Iopamidol - 370 500 ML MLS IVP ONE (12:30)
[2021-11-23 12:42] LABS: Hematocrit 42.7 % (35.3-44.9); Hemoglobin 12.5 g/dL (11.5-15.4); Mean Corpuscular HGB Conc 29.3 g/dL (31.6-35.5); Mean Corpuscular Hemoglobin 27.8 pg (28.0-33.3); Mean Corpuscular Volume 94.9 fL (83.0-100.0); Mean Platelet Volume 10.6 fL (9.4-12.4); Platelet Count 212 K/mcL (140-400); Red Cell Distribution Width 17.8 % (11.5-14.5); White Blood Count 10.9 K/mcL (4.3-11.1)
[2021-11-23] MEDS ORDERED: Naloxone 0.4 MG/ML INJ IVP ONE (12:45)
[2021-11-23 12:51] LABS: Prothrombin Time 11.1 Seconds (9.4-12.1)
[2021-11-23 13:17] LABS: Bacteria,Urine Few per hpf (None-Few); Bilirubin,Urine Negative (Negative); Blood,Urine Negative (Negative); Clarity,Urine Turbid (Clear); Color,Urine Yellow (Yellow); Glucose,Urine (UA) 50 mg/dL (Normal); Granular Casts,Urine Few per lpf (None Seen); Hyaline Casts,Urine Few per lpf (None Seen); Ketones,Urine Negative (Negative); Leukocyte Esterase,Urine Moderate (Negative); Mucus,Urine Few per lpf (None-Few); Nitrite,Urine Negative (Negative); PH,Urine 5.5 pH Units (5.0-8.0); Protein,Urine 100 mg/dL (Neg-Trace); RBC,Urine 0-3 per hpf (0-3); Specific Gravity,Urine > 1.030 (1.010-1.025); Squamous Epithelial Cell,Urine Few per hpf (None-Few); Transitional Epi Cells,Urine Few per hpf (None-Few); Urobilinogen,Urine Normal (Normal)
[2021-11-23] MEDS: 0.9 % Sodium Chloride 1,000 ML IVC ONE ×2 (13:26→15:14)
[2021-11-23 13:30] LABS: BUN/Creatinine Ratio 9 (6-26); Blood Urea Nitrogen 21 mg/dL (6-20); Calcium 9.2 mg/dL (8.6-10.3); Carbon Dioxide 12 mEq/L (23-29); Chloride 113 mEq/L (98-107); Creatine Kinase 36 Units/L (30-223); Glucose 139 mg/dL (70-105); Osmolality,Calculated 299 (280-300); Potassium 5.5 mEq/L (3.5-5.1); Sodium 142 mEq/L (136-145); Troponin I < 0.03 ng/mL (< 0.04); eGFR For African Americans 29 (> 60); eGFR For Non-African Americans 24 (> 60)
[2021-11-23 13:43] LABS: Amphetamine Screen,Urine Negative ng/mL (Cutoff=1000); Barbiturate Screen,Urine Negative ng/mL (Cutoff=200); Benzodiazepines Screen,Urine Negative ng/mL (Cutoff=200); Cannabinoid Screen,Urine Negative ng/mL (Cutoff = 50); Cocaine Screen,Urine Negative ng/mL (Cutoff= 300); Opiate Screen,Urine Negative ng/mL (Cutoff=300); Phencyclidine Screen,Urine Negative ng/mL (Cutoff=25)
[2021-11-23] MEDS ORDERED: Norepinephrine 4 MG/254 ML IV.SOLN IVC SCH (14:30)
[2021-11-23] MEDS ORDERED: 0.9 % Sodium Chloride 250 ML ONE (14:32)
[2021-11-23] MEDS ORDERED: *HR* Norepinephrine 4 MG/4 ML VIAL IVC ONE (14:32)
[2021-11-23] MEDS ORDERED: Lidocaine -MPF 1% 5 ML AMPUL INFILT ONE (14:51)
[2021-11-23 14:53] LABS: Adenovirus Not Detected (Not Detect); Bordetella Pertussis Not Detected (Not Detect); Chlamydophila pneumoniae Not Detected (Not Detect); Coronavirus 229E Not Detected (Not Detect); Coronavirus HKU1 Not Detected (Not Detect); Coronavirus NL63 Not Detected (Not Detect); Coronavirus OC43 Not Detected (Not Detect); Human Metapneumovirus Not Detected (Not Detect); Human Rhinovirus/Enterovirus Not Detected (Not Detect); Influenza A Subtype 2009 H1 Not Detected (Not Detect); Influenza B Not Detected (Not Detect); Mycoplasma pneumoniae Not Detected (Not Detect); Parainfluenza Virus 1 Not Detected (Not Detect); Parainfluenza Virus 2 Not Detected (Not Detect); Parainfluenza Virus 3 Not Detected (Not Detect); Parainfluenza Virus 4 Not Detected (Not Detect); Respiratory Syncytial Virus Not Detected (Not Detect); SARS-CoV-2 Not Detected (Not Detect)
[2021-11-23] MEDS ORDERED: Naloxone 0.4 MG/ML INJ IVP PRN (15:34)
[2021-11-23] MEDS ORDERED: Ondansetron 4 MG/2 ML VIAL IVP PRN (15:34)
[2021-11-23 16:05] LABS: Albumin/Globulin Ratio 1.4 (1.1-2.2); Bilirubin,Direct 0.1 mg/dL (0.0-0.2); Bilirubin,Indirect 0.2 mg/dL (0.0-1.0); Bilirubin,Total 0.3 mg/dL (0.3-1.0); Globulin 2.1 g/dL (2.4-3.5); Phosphorous 6.5 mg/dL (2.7-4.5); Total Protein 5.1 g/dL (6.4-8.9)
[2021-11-23] MEDS ORDERED: 0.9 % Sodium Chloride 1,000 ML IVC ONE ×2 (17:43→18:41)
[2021-11-23] MEDS ORDERED: 0.9 % Sodium Chloride 1,000 ML ONE (17:48)
[2021-11-23] MEDS: Cefepime HCl 2,000 MG in 0.9 % Sodium Chloride 10 ML IVP SCH (17:50)
[2021-11-24] MEDS ORDERED: Dextrose Gel 15 GM/37.5 ML TUBE PO PRN ×2 (00:01)
[2021-11-24] MEDS ORDERED: D5% in Water 1,000 ML IVC PRN (00:01)
[2021-11-24] MEDS ORDERED: *HR* Dextrose 50 % in Water (Syg) 50 ML SYRINGE IVP PRN (00:01)
[2021-11-24] MEDS: Cefepime HCl 2,000 MG in 0.9 % Sodium Chloride 10 ML IVP SCH ×3 (01:50→18:10)
[2021-11-24] MEDS ORDERED: Vancomycin 2,000 MG/520 ML IV.SOLN IVPB SCH (03:00)
[2021-11-24] MEDS: Insulin LISPRO 300 UNITS/3 ML VIAL SUBQ SCH ×3 (04:20→17:57)
[2021-11-24 05:35] LABS: Mean Corpuscular HGB Conc 28.5 g/dL (31.6-35.5)
[2021-11-24 05:37] LABS: Basophils % 0.3 %; Eosinophils % 0.1 %; Hematocrit 37.9 % (35.3-44.9); Hemoglobin 10.8 g/dL (11.5-15.4); Immature Granulocytes % 1.2 % (0-4); Lymphocytes # 1.2 K/mcL (0.6-4.6); Lymphocytes % 10.5 %; Mean Corpuscular Hemoglobin 27.5 pg (28.0-33.3); Mean Corpuscular Volume 96.4 fL (83.0-100.0); Mean Platelet Volume 10.8 fL (9.4-12.4); Monocytes # 0.7 K/mcL (0.0-1.3); Monocytes % 5.9 %; Nucleated Red Blood Cells 0.4 /100 WBC (0); Platelet Count 172 K/mcL (140-400); Red Blood Count 3.93 M/mcL (3.82-4.97); White Blood Count 11.4 K/mcL (4.3-11.1)
[2021-11-24 05:41] LABS: Neutrophils # 9.4 K/mcL (1.6-8.9)
[2021-11-24 05:54] LABS: Calcium 8.1 mg/dL (8.6-10.3); Potassium 4.9 mEq/L (3.5-5.1)
[2021-11-24 06:02] LABS: Anisocytosis 1+ (Not Present); Platelet Estimate Normal (Normal)
[2021-11-24] MEDS ORDERED: Perflutren Lipid Microsphere 1.3 ML in 0.9 % Sodium Chloride 8.7 ML IVP PRN (09:39)
[2021-11-24 09:47] LABS: Chol/HDL Ratio 6.7 (0-4.9); Cholesterol 60 mg/dL (< 200); Ethanol < 10 mg/dL (Less than 10); HDL Cholesterol 9 mg/dL (40-59); LDL Cholesterol,Calculated 2 mg/dL (< 100); Triglycerides 243 mg/dL (< 150)
[2021-11-24 09:57] LABS: VBG HCO3 9 mEq/L (21-27); VBG PCO2 34 mmHg (41-51); VBG PH 7.01 pH Units (7.32-7.42); VBG PO2 151 mmHg (25-50)
[2021-11-24 09:58] LABS: Uric Acid 6.1 mg/dL (2.3-7.6)
[2021-11-24] MEDS: Sodium Bicarbonate 150 MEQ in Water for inj. (sterile) 1,000 ML IVC SCH ×2 (10:06→20:30)
[2021-11-24 10:40] LABS: Creatinine,Urine 165 mg/dL; Protein/Creatinine Ratio,Urine 1.21 mg/mg (0.00-0.20); Sodium, Urine < 10.0 mEq/L
[2021-11-24 11:13] LABS: INR 1.2; Prothrombin Time 12.9 Seconds (9.4-12.1)
[2021-11-24 11:52] LABS: Complement C3 93 mg/dL (87-200)
[2021-11-24 12:05] LABS: Rheumatoid Factor < 10 IU/mL (Less than 14)
[2021-11-24 12:07] LABS: Estimated Average Glucose 117 mg/dl; Hemoglobin A1C 5.7 %
[2021-11-24 12:29] LABS: Hepatitis B Surface Antigen Nonreactive (Nonreactive)
[2021-11-24 13:00] LABS: Hepatitis A Antibody IgM Nonreactive (Nonreactive); Hepatitis B Core IgM Nonreactive (Nonreactive); Hepatitis C Virus Antibody Nonreactive (Nonreactive)
[2021-11-24 14:45] LABS: VBG HCO3 10 mEq/L (21-27); VBG PCO2 35 mmHg (41-51); VBG PH 7.08 pH Units (7.32-7.42); VBG PO2 139 mmHg (25-50)
[2021-11-24 15:01] LABS: Calcium 8.3 mg/dL (8.6-10.3); Potassium 5.3 mEq/L (3.5-5.1)
[2021-11-24] MEDS ORDERED: 0.9 % Sodium Chloride 1,000 ML PRIME ONE ×2 (15:30)
[2021-11-24] MEDS ORDERED: 0.9 % Sodium Chloride 1,000 ML PRIME SCH (15:30)
[2021-11-24] MEDS ORDERED: *HR* Alteplase (Cathflo) 2 MG VIAL IVP PRN (15:30)
[2021-11-24] MEDS ORDERED: Artificial Tears SOLN 15 ML BOTTLE BOTH EYES PRN (15:36)
[2021-11-24] MEDS: Norepinephrine 4 MG/254 ML IV.SOLN IVC SCH ×2 (16:21→16:45)
[2021-11-24 16:43] LABS: Basophils % 0.3 %; Eosinophils # 0.1 K/mcL (0.0-0.6); Eosinophils % 0.3 %; Hematocrit 30.5 % (35.3-44.9); Lymphocytes # 1.5 K/mcL (0.6-4.6); Lymphocytes % 9.7 %; Mean Corpuscular HGB Conc 29.5 g/dL (31.6-35.5); Mean Corpuscular Hemoglobin 28.5 pg (28.0-33.3); Mean Corpuscular Volume 96.5 fL (83.0-100.0); Mean Platelet Volume 10.8 fL (9.4-12.4); Monocytes % 6.2 %; Nucleated Red Blood Cells 0.6 /100 WBC (0); Platelet Count 202 K/mcL (140-400); Red Blood Count 3.16 M/mcL (3.82-4.97); Segmented Neutrophils % 81.5 %; White Blood Count 15.9 K/mcL (4.3-11.1)
[2021-11-24] MEDS ORDERED: Vancomycin 1 EACH in 0.9 % Sodium Chloride 250 ML IVPB PRN (17:00)
[2021-11-24 17:05] LABS: Albumin 2.2 g/dL (3.5-5.7); Albumin/Globulin Ratio 1.3 (1.1-2.2); Bilirubin,Indirect 0.4 mg/dL (0.0-1.0); Bilirubin,Total 0.4 mg/dL (0.3-1.0); Globulin 1.7 g/dL (2.4-3.5); Potassium 3.6 mEq/L (3.5-5.1); Total Protein 3.9 g/dL (6.4-8.9)
[2021-11-24] MEDS ORDERED: *HR* Midazolam HCl 2 MG/2 ML VIAL IVP ONE (17:11)
[2021-11-24] MEDS ORDERED: *HR* Etomidate 20 MG/10 ML AMPUL IVP ONE (17:27)
[2021-11-24] MEDS ORDERED: *HR* Midazolam HCl 5 MG/5 ML VIAL IVP ONE (17:27)
[2021-11-24] MEDS: FentaNYL (PF) 1,000 MCG/100 ML IV.SOLN IVC SCH (17:56)
[2021-11-24] MEDS: Dexmedetomidine HCl 400 MCG/100 ML MLS IVC SCH (17:56)
[2021-11-24] MEDS: Norepinephrine 32 MG/250 ML IV.SOLN IVC SCH (17:57)
[2021-11-24 18:05] LABS: ABG Base Excess -18 mEq/L (-2 to 3); ABG HCO3 12 mEq/L (21-27); ABG Oxygen Saturation 99 % (95-98); ABG PCO2 42 mmHg (35-45); ABG PH 7.05 pH Units (7.32-7.45); ABG PO2 182 mmHg (85-104); ABG TCO2 13 mEq/L (20-26); Blood Gas Modality ASSIST CONTROL; Blood Gas VT 450 cc
[2021-11-24] MEDS: Pantoprazole 40 MG VIAL IVP SCH (18:06)
[2021-11-24] MEDS: Artificial Tears SOLN 15 ML BOTTLE BOTH EYES SCH ×2 (18:10→20:28)
[2021-11-24] MEDS: MetroNIDAZOLE 500 MG/100 ML 500 MG/100 ML BAG IVPB SCH (18:11)
[2021-11-24 18:41] LABS: Calcium 5.8 mg/dL (8.6-10.3)
[2021-11-24] MEDS: PrismaSATE BGK 4/2.5 5,000 ML CRRT SCH ×2 (20:15)
[2021-11-24] MEDS: Chlorhexidine Rinse 15 ML MOUTHWASH MM SCH (20:16)
[2021-11-24] MEDS ORDERED: Calcium Gluconate 1gm/50mL 1 GM/50 ML BAG IVPB PRN (22:12)
[2021-11-25 00:01] LABS: ABG Base Excess -17 mEq/L (-2 to 3); ABG HCO3 12 mEq/L (21-27); ABG Oxygen Saturation 99 % (95-98); ABG PCO2 38 mmHg (35-45); ABG PH 7.11 pH Units (7.32-7.45); ABG PO2 166 mmHg (85-104); ABG TCO2 13 mEq/L (20-26); Blood Gas Modality ASSIST CONTROL; Blood Gas VT 450 cc
[2021-11-25] MEDS: SODIUM CITRATE 500 ML CRRT SCH ×4 (00:13→20:48)
[2021-11-25] MEDS: Calcium Chloride 4,000 MG in 0.9 % Sodium Chloride 1,000 ML CRRT SCH ×2 (00:14→17:45)
[2021-11-25] MEDS: Insulin LISPRO 300 UNITS/3 ML VIAL SUBQ SCH ×4 (00:25→17:21)
[2021-11-25] MEDS: Artificial Tears SOLN 15 ML BOTTLE BOTH EYES SCH ×7 (00:25→23:51)
[2021-11-25] MEDS: Cefepime HCl 2,000 MG in 0.9 % Sodium Chloride 10 ML IVP SCH ×4 (00:29→23:52)
[2021-11-25] MEDS: MetroNIDAZOLE 500 MG/100 ML 500 MG/100 ML BAG IVPB SCH ×4 (00:29→23:52)
[2021-11-25] MEDS ORDERED: 0.9 % Sodium Chloride 1,000 ML ONE (01:24)
[2021-11-25] MEDS ORDERED: *HR* Heparin 5,000 UNIT/ML VIAL ONE ×2 (01:24→04:47)
[2021-11-25 02:33] LABS: VBG Ionized Calcium 1.07 mmol/L (1.15-1.35)
[2021-11-25] MEDS: Norepinephrine 32 MG/250 ML IV.SOLN IVC SCH ×2 (02:42→09:19)
[2021-11-25] MEDS: *HR* Heparin 5,000 UNIT/ML VIAL IVP PRN ×2 (02:44→05:23)
[2021-11-25] MEDS: Dexmedetomidine HCl 400 MCG/100 ML MLS IVC SCH ×4 (03:10→20:05)
[2021-11-25] MEDS: PrismaSATE BGK 4/2.5 5,000 ML CRRT SCH ×12 (03:52→22:00)
[2021-11-25 04:25] LABS: ABG Base Excess -12 mEq/L (-2 to 3); ABG HCO3 16 mEq/L (21-27); ABG Oxygen Saturation 97 % (95-98); ABG PCO2 40 mmHg (35-45); ABG PO2 116 mmHg (85-104); ABG TCO2 17 mEq/L (20-26); Blood Gas Modality ASSIST CONTROL; Blood Gas VT 450 cc
[2021-11-25 04:32] LABS: Basophils # 0.1 K/mcL (0.0-0.2); Basophils % 0.4 %; Eosinophils # 0.2 K/mcL (0.0-0.6); Eosinophils % 0.9 %; Hematocrit 36.1 % (35.3-44.9); Lymphocytes # 2.4 K/mcL (0.6-4.6); Lymphocytes % 11.9 %; Mean Corpuscular HGB Conc 30.5 g/dL (31.6-35.5); Mean Corpuscular Hemoglobin 27.9 pg (28.0-33.3); Mean Corpuscular Volume 91.6 fL (83.0-100.0); Mean Platelet Volume 10.7 fL (9.4-12.4); Monocytes # 1.7 K/mcL (0.0-1.3); Monocytes % 8.4 %; Neutrophils # 15.4 K/mcL (1.6-8.9); Platelet Count 219 K/mcL (140-400); Red Blood Count 3.94 M/mcL (3.82-4.97); Segmented Neutrophils % 76.4 %; White Blood Count 20.2 K/mcL (4.3-11.1)
[2021-11-25 04:33] LABS: VBG Ionized Calcium 0.81 mmol/L (1.15-1.35)
[2021-11-25] MEDS: Calcium Gluconate 1gm/50mL 1 GM/50 ML BAG IVPB PRN ×6 (04:49→20:43)
[2021-11-25 04:52] LABS: Albumin 2.7 g/dL (3.5-5.7); Albumin/Globulin Ratio 1.1 (1.1-2.2); Bilirubin,Direct 0.4 mg/dL (0.0-0.2); Bilirubin,Indirect 0.3 mg/dL (0.0-1.0); Bilirubin,Total 0.7 mg/dL (0.3-1.0); Calcium 7.6 mg/dL (8.6-10.3); Globulin 2.5 g/dL (2.4-3.5); Potassium 3.7 mEq/L (3.5-5.1); Total Protein 5.2 g/dL (6.4-8.9)
[2021-11-25] MEDS: FentaNYL (PF) 1,000 MCG/100 ML IV.SOLN IVC SCH ×2 (05:49→14:29)
[2021-11-25] MEDS: Sodium Bicarbonate 150 MEQ in Water for inj. (sterile) 1,000 ML IVC SCH ×2 (06:26→15:17)
[2021-11-25] MEDS: Pantoprazole 40 MG VIAL IVP SCH (07:40)
[2021-11-25] MEDS: Chlorhexidine Rinse 15 ML MOUTHWASH MM SCH ×2 (07:40→20:06)
[2021-11-25 08:39] LABS: VBG Ionized Calcium 0.92 mmol/L (1.15-1.35)
[2021-11-25 11:22] LABS: VBG Ionized Calcium 0.94 mmol/L (1.15-1.35)
[2021-11-25 11:35] LABS: ABG Base Excess -9 mEq/L (-2 to 3); ABG HCO3 19 mEq/L (21-27); ABG Oxygen Saturation 97 % (95-98); ABG PCO2 46 mmHg (35-45); ABG PH 7.21 pH Units (7.32-7.45); ABG PO2 109 mmHg (85-104); ABG TCO2 20 mEq/L (20-26); Blood Gas Modality AF; Blood Gas VT 450 cc
[2021-11-25 17:36] LABS: VBG Ionized Calcium 0.97 mmol/L (1.15-1.35)
[2021-11-25] MEDS ORDERED: Vancomycin 1,250 MG/262.5 ML IV.SOLN IVPB ONE (18:00)
[2021-11-25 20:09] LABS: VBG Ionized Calcium 0.87 mmol/L (1.15-1.35)
[2021-11-25] MEDS ORDERED: Topiramate 100 MG TABLET PO SCH ×2 (21:00)
[2021-11-25] MEDS: *HR* Heparin 5,000 UNIT/ML VIAL SQ SCH (23:51)
[2021-11-26] MEDS: Insulin LISPRO 300 UNITS/3 ML VIAL SUBQ SCH ×4 (00:01→17:34)
[2021-11-26] MEDS: PrismaSATE BGK 4/2.5 5,000 ML CRRT SCH ×14 (00:14→21:32)
[2021-11-26] MEDS: Dexmedetomidine HCl 400 MCG/100 ML MLS IVC SCH ×5 (00:37→20:33)
[2021-11-26] MEDS: SODIUM CITRATE 500 ML CRRT SCH ×5 (00:38→22:35)
[2021-11-26 00:41] LABS: VBG Ionized Calcium 1.14 mmol/L (1.15-1.35)
[2021-11-26] MEDS: Sodium Bicarbonate 150 MEQ in Water for inj. (sterile) 1,000 ML IVC SCH ×3 (01:20→16:29)
[2021-11-26] MEDS: FentaNYL (PF) 1,000 MCG/100 ML IV.SOLN IVC SCH ×3 (01:20→20:55)
[2021-11-26] MEDS: Calcium Chloride 4,000 MG in 0.9 % Sodium Chloride 1,000 ML CRRT SCH ×3 (03:24→22:08)
[2021-11-26] MEDS: Artificial Tears SOLN 15 ML BOTTLE BOTH EYES SCH ×6 (03:25→23:15)
[2021-11-26 04:01] LABS: INR 1.4; Prothrombin Time 15.2 Seconds (9.4-12.1)
[2021-11-26 04:07] LABS: Albumin 2.1 g/dL (3.5-5.7); Bilirubin,Direct 0.3 mg/dL (0.0-0.2); Bilirubin,Indirect 0.4 mg/dL (0.0-1.0); Bilirubin,Total 0.7 mg/dL (0.3-1.0); Calcium 9.5 mg/dL (8.6-10.3); Globulin 2.2 g/dL (2.4-3.5); Potassium 3.4 mEq/L (3.5-5.1); Total Protein 4.3 g/dL (6.4-8.9)
[2021-11-26 04:10] LABS: ABG Base Excess 7 mEq/L (-2 to 3); ABG HCO3 32 mEq/L (21-27); ABG Oxygen Saturation 94 % (95-98); ABG PCO2 48 mmHg (35-45); ABG PH 7.43 pH Units (7.32-7.45); ABG PO2 69 mmHg (85-104); ABG TCO2 33 mEq/L (20-26); Blood Gas VT 450 cc
[2021-11-26 04:43] LABS: Basophils % 0.6 %
[2021-11-26 04:45] LABS: Eosinophils # 0.1 K/mcL (0.0-0.6); Eosinophils % 2.1 %; Hematocrit 20.4 % (35.3-44.9); Hemoglobin 6.6 g/dL (11.5-15.4); Immature Granulocytes % 1.3 % (0-4); Immature Platelets 4.7 % (1.1-6.1); Lymphocytes # 0.5 K/mcL (0.6-4.6); Lymphocytes % 10.6 %; Mean Corpuscular HGB Conc 32.4 g/dL (31.6-35.5); Mean Corpuscular Hemoglobin 28.1 pg (28.0-33.3); Mean Corpuscular Volume 86.8 fL (83.0-100.0); Mean Platelet Volume 10.7 fL (9.4-12.4); Monocytes # 0.4 K/mcL (0.0-1.3); Monocytes % 7.8 %; Neutrophils # 3.7 K/mcL (1.6-8.9); Nucleated Red Blood Cells 2.1 /100 WBC (0); Red Blood Count 2.35 M/mcL (3.82-4.97); Red Cell Distribution Width 17.1 % (11.5-14.5); Segmented Neutrophils % 77.6 %; White Blood Count 4.7 K/mcL (4.3-11.1)
[2021-11-26 05:26] LABS: Platelet Count 79 K/mcL (140-400)
[2021-11-26 05:30] LABS: Anisocytosis 1+ (Not Present); Platelet Estimate Decreased (Normal)
[2021-11-26] MEDS ORDERED: 0.9 % Sodium Chloride 250 ML IVC SCH (05:45)
[2021-11-26] MEDS: *HR* Heparin 5,000 UNIT/ML VIAL SQ SCH ×3 (06:08→20:40)
[2021-11-26 06:22] LABS: Fibrinogen 539 mg/dL (169-393)
[2021-11-26 06:23] LABS: D-Dimer 2333 ng/mLFEU (0-500)
[2021-11-26 06:30] LABS: Immature Reticulocyte % 19.7 % (11.0-38.0); Retculocyte # 0.05 M/mcL (0.05-0.10); Reticulocyte % 2.2 % (1.6-2.8)
[2021-11-26] MEDS: Norepinephrine 32 MG/250 ML IV.SOLN IVC SCH ×3 (07:37→15:27)
[2021-11-26] MEDS: MetroNIDAZOLE 500 MG/100 ML 500 MG/100 ML BAG IVPB SCH ×3 (07:46→23:15)
[2021-11-26] MEDS: Cefepime HCl 2,000 MG in 0.9 % Sodium Chloride 10 ML IVP SCH ×3 (07:47→23:15)
[2021-11-26] MEDS: Pantoprazole 40 MG VIAL IVP SCH (07:47)
[2021-11-26] MEDS: Chlorhexidine Rinse 15 ML MOUTHWASH MM SCH ×2 (07:47→19:45)
[2021-11-26 10:14] LABS: Magnesium 1.6 mg/dL (1.6-2.6); Phosphorous 2.4 mg/dL (2.7-4.5)
[2021-11-26 11:02] LABS: Basophils % 0.6 %; Eosinophils # 0.1 K/mcL (0.0-0.6); Eosinophils % 2.1 %; Immature Granulocytes % 0.8 % (0-4); Lymphocytes # 0.8 K/mcL (0.6-4.6); Lymphocytes % 13.4 %; Mean Corpuscular HGB Conc 31.1 g/dL (31.6-35.5); Mean Corpuscular Hemoglobin 27.6 pg (28.0-33.3); Mean Corpuscular Volume 88.8 fL (83.0-100.0); Mean Platelet Volume 10.6 fL (9.4-12.4); Monocytes # 0.6 K/mcL (0.0-1.3); Monocytes % 9.2 %; Neutrophils # 4.6 K/mcL (1.6-8.9); Nucleated Red Blood Cells 1.5 /100 WBC (0); Platelet Count 101 K/mcL (140-400); Red Blood Count 3.04 M/mcL (3.82-4.97); Red Cell Distribution Width 17.4 % (11.5-14.5); Segmented Neutrophils % 73.9 %; White Blood Count 6.2 K/mcL (4.3-11.1)
[2021-11-26 11:13] LABS: Hemoglobin 8.4 g/dL (11.5-15.4)
[2021-11-26 11:14] LABS: ANA IgG by ELISA NONE DETECTED (None Detected)
[2021-11-26] MEDS: clonazePAM 0.5 MG TABLET PO SCH ×4 (11:47→20:40)
[2021-11-26] MEDS: RisperiDAL 3 MG TABLET PO SCH (11:47)
[2021-11-26 16:40] LABS: VBG Ionized Calcium 1.02 mmol/L (1.15-1.35)
[2021-11-26 18:36] LABS: Hematocrit 26.8 % (35.3-44.9); Hemoglobin 8.1 g/dL (11.5-15.4)
[2021-11-26 18:46] LABS: VBG Ionized Calcium 0.89 mmol/L (1.15-1.35)
[2021-11-26] MEDS: Calcium Gluconate 1gm/50mL 1 GM/50 ML BAG IVPB PRN ×2 (19:06→22:35)
[2021-11-26] MEDS ORDERED: Vancomycin 1,500 MG/265 ML IV.SOLN IVPB ONE (19:20)
[2021-11-26 20:27] LABS: VBG Ionized Calcium 1.08 mmol/L (1.15-1.35)
[2021-11-26 22:34] LABS: ANCA IFA Titer <1:20 (<1:20)
[2021-11-27] MEDS: PrismaSATE BGK 4/2.5 5,000 ML CRRT SCH ×16 (00:05→23:12)
[2021-11-27] MEDS: Insulin LISPRO 300 UNITS/3 ML VIAL SUBQ SCH ×5 (00:06→23:39)
[2021-11-27 00:14] LABS: ABG Base Excess 14 mEq/L (-2 to 3); ABG HCO3 40 mEq/L (21-27); ABG Oxygen Saturation 97 % (95-98); ABG PCO2 58 mmHg (35-45); ABG PH 7.44 pH Units (7.32-7.45); ABG PO2 91 mmHg (85-104); ABG TCO2 42 mEq/L (20-26)
[2021-11-27 00:29] LABS: Hematocrit 26.1 % (35.3-44.9); Hemoglobin 7.9 g/dL (11.5-15.4)
[2021-11-27] MEDS: Norepinephrine 32 MG/250 ML IV.SOLN IVC SCH ×4 (00:34→19:45)
[2021-11-27] MEDS: SODIUM CITRATE 500 ML CRRT SCH ×3 (00:56→05:17)
[2021-11-27] MEDS: Dexmedetomidine HCl 400 MCG/100 ML MLS IVC SCH ×6 (01:35→22:22)
[2021-11-27] MEDS: Artificial Tears SOLN 15 ML BOTTLE BOTH EYES SCH ×6 (03:12→23:13)
[2021-11-27 03:35] LABS: Hemoglobin 7.2 g/dL (11.5-15.4); Mean Corpuscular Hemoglobin 27.4 pg (28.0-33.3); Red Blood Count 2.63 M/mcL (3.82-4.97); Red Cell Distribution Width 17.2 % (11.5-14.5)
[2021-11-27 03:37] LABS: Basophils % 0.5 %; Eosinophils # 0.1 K/mcL (0.0-0.6); Eosinophils % 2.7 %; Hematocrit 24.1 % (35.3-44.9); Immature Granulocytes % 1.4 % (0-4); Lymphocytes # 0.7 K/mcL (0.6-4.6); Lymphocytes % 16.3 %; Mean Corpuscular HGB Conc 29.9 g/dL (31.6-35.5); Mean Corpuscular Volume 91.6 fL (83.0-100.0); Mean Platelet Volume 10.4 fL (9.4-12.4); Monocytes # 0.4 K/mcL (0.0-1.3); Monocytes % 8.1 %; Neutrophils # 3.1 K/mcL (1.6-8.9); Nucleated Red Blood Cells 1.4 /100 WBC (0); White Blood Count 4.4 K/mcL (4.3-11.1)
[2021-11-27 03:39] LABS: Platelet Count 98 K/mcL (140-400)
[2021-11-27 03:50] LABS: Alanine Aminotransferase 7 Units/L (7-52); Albumin 2.3 g/dL (3.5-5.7); Alkaline Phosphatase 80 Units/L (34-104); Amylase 53 Units/L (29-103); Aspartate Amino Transferase 16 Units/L (13-39); BUN/Creatinine Ratio 9 (6-26); Bilirubin,Direct 0.2 mg/dL (0.0-0.2); Bilirubin,Indirect 0.4 mg/dL (0.0-1.0); Bilirubin,Total 0.6 mg/dL (0.3-1.0); Blood Urea Nitrogen 9 mg/dL (6-20); Calcium 10.8 mg/dL (8.6-10.3); Carbon Dioxide 37 mEq/L (23-29); Chloride 102 mEq/L (98-107); Creatine Kinase 51 Units/L (30-223); Globulin 2.2 g/dL (2.4-3.5); Glucose 148 mg/dL (70-105); Lipase 68 Units/L (11-82); Osmolality,Calculated 309 (280-300); Potassium 3.3 mEq/L (3.5-5.1); Sodium 149 mEq/L (136-145); Total Protein 4.5 g/dL (6.4-8.9); eGFR For African Americans > 60 (> 60); eGFR For Non-African Americans 58 (> 60)
[2021-11-27] MEDS: Calcium Chloride 4,000 MG in 0.9 % Sodium Chloride 1,000 ML CRRT SCH (04:18)
[2021-11-27 04:32] LABS: ABG Base Excess 12 mEq/L (-2 to 3); ABG HCO3 38 mEq/L (21-27); ABG Oxygen Saturation 99 % (95-98); ABG PCO2 58 mmHg (35-45); ABG PH 7.42 pH Units (7.32-7.45); ABG PO2 140 mmHg (85-104); ABG TCO2 40 mEq/L (20-26); Blood Gas VT 687 cc
[2021-11-27] MEDS: *HR* Heparin 5,000 UNIT/ML VIAL SQ SCH (04:54)
[2021-11-27 06:19] LABS: Hemoglobin 7.6 g/dL (11.5-15.4)
[2021-11-27 08:09] LABS: VBG Ionized Calcium 1.45 mmol/L (1.15-1.35)
[2021-11-27 08:34] LABS: Phosphorous 1.8 mg/dL (2.7-4.5)
[2021-11-27] MEDS: Cefepime HCl 2,000 MG in 0.9 % Sodium Chloride 10 ML IVP SCH ×3 (08:57→23:13)
[2021-11-27] MEDS: Pantoprazole 40 MG VIAL IVP SCH (08:58)
[2021-11-27] MEDS: Chlorhexidine Rinse 15 ML MOUTHWASH MM SCH ×2 (08:58→19:46)
[2021-11-27] MEDS: MetroNIDAZOLE 500 MG/100 ML 500 MG/100 ML BAG IVPB SCH ×3 (08:58→23:13)
[2021-11-27 11:17] LABS: Hematocrit 23.8 % (35.3-44.9); Hemoglobin 7.2 g/dL (11.5-15.4)
[2021-11-27] MEDS: clonazePAM 0.5 MG TABLET PO SCH ×4 (12:12→19:45)
[2021-11-27] MEDS: RisperiDAL 3 MG TABLET PO SCH (12:13)
[2021-11-27 16:37] LABS: Phosphorous 1.9 mg/dL (2.7-4.5); Potassium 3.8 mEq/L (3.5-5.1)
[2021-11-27 19:50] LABS: Basophils % 0.4 %; Hemoglobin 7.3 g/dL (11.5-15.4); Immature Granulocytes % 1.8 % (0-4)
[2021-11-27 19:51] LABS: Eosinophils # 0.1 K/mcL (0.0-0.6); Hematocrit 24.8 % (35.3-44.9); Immature Platelets 5.6 % (1.1-6.1); Lymphocytes # 0.8 K/mcL (0.6-4.6); Lymphocytes % 15.2 %; Mean Corpuscular HGB Conc 29.4 g/dL (31.6-35.5); Mean Platelet Volume 10.4 fL (9.4-12.4); Monocytes # 0.4 K/mcL (0.0-1.3); Monocytes % 8.4 %; Neutrophils # 3.6 K/mcL (1.6-8.9); Platelet Count 100 K/mcL (140-400); Red Blood Count 2.61 M/mcL (3.82-4.97); Red Cell Distribution Width 16.8 % (11.5-14.5); Segmented Neutrophils % 72.2 %
[2021-11-27 20:09] LABS: BUN/Creatinine Ratio 11 (6-26); Blood Urea Nitrogen 10 mg/dL (6-20); Calcium 9.3 mg/dL (8.6-10.3); Carbon Dioxide 33 mEq/L (23-29); Chloride 104 mEq/L (98-107); Glucose 145 mg/dL (70-105); Osmolality,Calculated 298 (280-300); Potassium 3.7 mEq/L (3.5-5.1); Sodium 143 mEq/L (136-145); eGFR For African Americans > 60 (> 60); eGFR For Non-African Americans > 60 (> 60)
[2021-11-28] MEDS: Norepinephrine 32 MG/250 ML IV.SOLN IVC SCH ×4 (00:08→23:37)
[2021-11-28 00:30] LABS: ANCA IFA Pattern NONE DETECTED (None Detected); Serine Protease-3 Antibody 1 AU/mL (0-19)
[2021-11-28] MEDS: PrismaSATE BGK 4/2.5 5,000 ML CRRT SCH ×6 (01:36→06:28)
[2021-11-28] MEDS: Artificial Tears SOLN 15 ML BOTTLE BOTH EYES SCH ×6 (03:11→23:03)
[2021-11-28 03:25] LABS: VBG Ionized Calcium 1.26 mmol/L (1.15-1.35)
[2021-11-28 03:29] LABS: Basophils % 0.4 %; Nucleated Red Blood Cells 0.4 /100 WBC (0); Segmented Neutrophils % 71.3 %
[2021-11-28 03:31] LABS: Hematocrit 24.5 % (35.3-44.9); Hemoglobin 7.1 g/dL (11.5-15.4); Immature Granulocytes % 2.2 % (0-4); Immature Platelets 5.5 % (1.1-6.1); Lymphocytes % 15.9 %; Mean Corpuscular Hemoglobin 27.7 pg (28.0-33.3); Mean Corpuscular Volume 95.7 fL (83.0-100.0); Mean Platelet Volume 10.2 fL (9.4-12.4); Red Blood Count 2.56 M/mcL (3.82-4.97); Red Cell Distribution Width 16.2 % (11.5-14.5)
[2021-11-28 03:32] LABS: Eosinophils # 0.1 K/mcL (0.0-0.6); Eosinophils % 2.4 %; Lymphocytes # 0.8 K/mcL (0.6-4.6); Monocytes # 0.4 K/mcL (0.0-1.3); Monocytes % 7.8 %; Neutrophils # 3.6 K/mcL (1.6-8.9)
[2021-11-28 03:36] LABS: Platelet Count 99 K/mcL (140-400)
[2021-11-28 03:45] LABS: Magnesium 2.1 mg/dL (1.6-2.6); Phosphorous 2.2 mg/dL (2.7-4.5)
[2021-11-28 03:51] LABS: Alanine Aminotransferase 9 Units/L (7-52); Albumin 2.4 g/dL (3.5-5.7); Alkaline Phosphatase 77 Units/L (34-104); Amylase 61 Units/L (29-103); Aspartate Amino Transferase 15 Units/L (13-39); BUN/Creatinine Ratio 12 (6-26); Bilirubin,Direct 0.1 mg/dL (0.0-0.2); Bilirubin,Indirect 0.3 mg/dL (0.0-1.0); Bilirubin,Total 0.4 mg/dL (0.3-1.0); Blood Urea Nitrogen 9 mg/dL (6-20); Calcium 8.5 mg/dL (8.6-10.3); Carbon Dioxide 30 mEq/L (23-29); Chloride 105 mEq/L (98-107); Creatine Kinase 38 Units/L (30-223); Globulin 2.3 g/dL (2.4-3.5); Glucose 132 mg/dL (70-105); Lipase 103 Units/L (11-82); Osmolality,Calculated 293 (280-300); Potassium 3.7 mEq/L (3.5-5.1); Sodium 141 mEq/L (136-145); Total Protein 4.7 g/dL (6.4-8.9); eGFR For African Americans > 60 (> 60); eGFR For Non-African Americans > 60 (> 60)
[2021-11-28] MEDS: Dexmedetomidine HCl 400 MCG/100 ML MLS IVC SCH (03:52)
[2021-11-28 03:53] LABS: Alpha 2 Globulin (PEP) 0.84 g/dL (0.48-1.05)
[2021-11-28] MEDS: Insulin LISPRO 300 UNITS/3 ML VIAL SUBQ SCH ×4 (05:14→23:05)
[2021-11-28 06:26] LABS: Hematocrit 23.9 % (35.3-44.9); Hemoglobin 6.9 g/dL (11.5-15.4)
[2021-11-28] MEDS: MetroNIDAZOLE 500 MG/100 ML 500 MG/100 ML BAG IVPB SCH ×3 (07:35→23:03)
[2021-11-28] MEDS: Cefepime HCl 2,000 MG in 0.9 % Sodium Chloride 10 ML IVP SCH ×3 (07:36→23:03)
[2021-11-28] MEDS: Chlorhexidine Rinse 15 ML MOUTHWASH MM SCH ×2 (07:36→19:37)
[2021-11-28] MEDS: Pantoprazole 40 MG VIAL IVP SCH (07:36)
[2021-11-28] MEDS: RisperiDAL 3 MG TABLET PO SCH (07:36)
[2021-11-28] MEDS: clonazePAM 0.5 MG TABLET PO SCH ×4 (07:36→19:37)
[2021-11-28] MEDS ORDERED: *HR* Heparin 5,000 UNIT/ML VIAL ONE (09:50)
[2021-11-28 10:16] LABS: IFE Reflexed IFE Done; Immunoglobulin A 85 mg/dL (68-408); Immunoglobulin G 671 mg/dL (768-1632); Immunoglobulin M 76 mg/dL (35-263)
[2021-11-28 12:17] LABS: Hematocrit 24.4 % (35.3-44.9); Hemoglobin 7.1 g/dL (11.5-15.4)
[2021-11-29] MEDS: Dexmedetomidine HCl 400 MCG/100 ML MLS IVC SCH ×3 (00:02→11:28)
[2021-11-29] MEDS: Artificial Tears SOLN 15 ML BOTTLE BOTH EYES SCH ×2 (03:05→07:20)
[2021-11-29 03:37] LABS: VBG Ionized Calcium 1.18 mmol/L (1.15-1.35)
[2021-11-29 03:49] LABS: Eosinophils % 1.6 %; Lymphocytes % 16.1 %; Red Blood Count 2.22 M/mcL (3.82-4.97)
[2021-11-29 03:51] LABS: Basophils % 0.3 %; Eosinophils # 0.1 K/mcL (0.0-0.6); Hematocrit 21.5 % (35.3-44.9); Hemoglobin 6.1 g/dL (11.5-15.4); Immature Granulocytes % 3.6 % (0-4); Mean Corpuscular HGB Conc 28.4 g/dL (31.6-35.5); Mean Corpuscular Hemoglobin 27.5 pg (28.0-33.3); Mean Corpuscular Volume 96.8 fL (83.0-100.0); Mean Platelet Volume 10.4 fL (9.4-12.4); Monocytes # 0.7 K/mcL (0.0-1.3); Monocytes % 10.3 %; Nucleated Red Blood Cells 0.3 /100 WBC (0); Platelet Count 117 K/mcL (140-400); Red Cell Distribution Width 16.3 % (11.5-14.5); Segmented Neutrophils % 68.1 %; White Blood Count 6.4 K/mcL (4.3-11.1)
[2021-11-29 04:00] LABS: Neutrophils # 4.4 K/mcL (1.6-8.9)
[2021-11-29 04:08] LABS: Albumin 2.4 g/dL (3.5-5.7); Bilirubin,Direct 0.1 mg/dL (0.0-0.2); Bilirubin,Indirect 0.3 mg/dL (0.0-1.0); Bilirubin,Total 0.4 mg/dL (0.3-1.0); Calcium 8.2 mg/dL (8.6-10.3); Globulin 2.3 g/dL (2.4-3.5); Magnesium 2.1 mg/dL (1.6-2.6); Phosphorous 3.1 mg/dL (2.7-4.5); Potassium 3.2 mEq/L (3.5-5.1); Total Protein 4.7 g/dL (6.4-8.9)
[2021-11-29 04:20] LABS: Hypochromasia Present (Not Present); Platelet Estimate Decreased (Normal)
[2021-11-29] MEDS: Insulin LISPRO 300 UNITS/3 ML VIAL SUBQ SCH ×3 (04:55→16:49)
[2021-11-29] MEDS: Chlorhexidine Rinse 15 ML MOUTHWASH MM SCH (07:20)
[2021-11-29] MEDS: Pantoprazole 40 MG VIAL IVP SCH (07:34)
[2021-11-29] MEDS: Cefepime HCl 2,000 MG in 0.9 % Sodium Chloride 10 ML IVP SCH ×2 (07:35→15:23)
[2021-11-29] MEDS: MetroNIDAZOLE 500 MG/100 ML 500 MG/100 ML BAG IVPB SCH ×2 (07:35→15:23)
[2021-11-29] MEDS: clonazePAM 0.5 MG TABLET PO SCH ×5 (07:35→20:32)
[2021-11-29] MEDS: RisperiDAL 3 MG TABLET PO SCH (07:35)
[2021-11-29 09:21] LABS: Hematocrit 23.6 % (35.3-44.9); Hemoglobin 7.1 g/dL (11.5-15.4)
[2021-11-29] MEDS ORDERED: *HR* Enoxaparin 40 MG/0.4 ML SYRINGE SQ SCH (11:50)
[2021-11-29] MEDS ORDERED: D10% in Water 500 ML IVC PRN (12:23)
[2021-11-29] MEDS ORDERED: Dextrose Gel 15 GM/37.5 ML TUBE PO PRN ×2 (12:50)
[2021-11-29] MEDS ORDERED: Naloxone 0.4 MG/ML INJ IVP PRN (12:50)
[2021-11-29] MEDS ORDERED: 0.9 % Sodium Chloride 250 ML IVC SCH (12:50)
[2021-11-29] MEDS ORDERED: D5% in Water 1,000 ML IVC PRN (12:50)
[2021-11-29] MEDS ORDERED: *HR* Dextrose 50 % in Water (Syg) 50 ML SYRINGE IVP PRN (12:50)
[2021-11-29 16:22] LABS: Immature Reticulocyte % 25.8 % (11.0-38.0); Retculocyte # 0.06 M/mcL (0.05-0.10); Reticulocyte % 2.5 % (1.6-2.8)
[2021-11-29] MEDS: Morphine Sulfate 2 MG/ML SYRINGE IVP PRN ×2 (16:44→20:42)
[2021-11-29 16:47] LABS: Potassium 3.1 mEq/L (3.5-5.1)
[2021-11-29] MEDS ORDERED: Clinimix E 5%-15% SOLUTION 2,000 ML with MVI, adult with vitamin K 10 ML IVC SCH (17:00)
[2021-11-29 17:14] LABS: Folate > 22.3 ng/mL (3.0-16.0); Vitamin B12 452 pg/mL (250-1100)
[2021-11-29 22:58] LABS: Calcium 8.4 mg/dL (8.6-10.3)
[2021-11-30] MEDS: Cefepime HCl 2,000 MG in 0.9 % Sodium Chloride 10 ML IVP SCH ×3 (00:38→17:47)
[2021-11-30] MEDS: MetroNIDAZOLE 500 MG/100 ML 500 MG/100 ML BAG IVPB SCH ×3 (00:39→18:19)
[2021-11-30] MEDS: Insulin LISPRO 300 UNITS/3 ML VIAL SUBQ SCH ×4 (00:55→20:50)
[2021-11-30] MEDS: Morphine Sulfate 2 MG/ML SYRINGE IVP PRN ×2 (01:52→06:04)
[2021-11-30] MEDS: Ipratropium/Albuterol Neb 3 ML IH PRN ×3 (05:37→20:13)
[2021-11-30] MEDS: *HR* Enoxaparin 40 MG/0.4 ML SYRINGE SQ SCH (06:03)
[2021-11-30] MEDS ORDERED: *HR* HYDROmorphone (PF) 1 MG/ML SYRINGE IVP PRN (07:29)
[2021-11-30] MEDS: clonazePAM 0.5 MG TABLET PO SCH ×4 (07:48→22:38)
[2021-11-30] MEDS ORDERED: RisperiDAL 3 MG TABLET PO SCH (09:00)
[2021-11-30] MEDS ORDERED: Pantoprazole 40 MG VIAL IVP SCH (09:00)
[2021-11-30] MEDS ORDERED: Iron Sucrose Complex 400 MG in 0.9 % Sodium Chloride 250 ML IVPB ONE (10:40)
[2021-11-30] MEDS ORDERED: 0.9 % Sodium Chloride 250 ML IVC PRN (11:00)
[2021-11-30] MEDS ORDERED: 0.9 % Sodium Chloride 2,000 ML PRIME SCH (11:00)
[2021-11-30] MEDS ORDERED: *HR* Heparin 10,000 UNIT/10 ML VIAL IV PRN (11:00)
[2021-11-30 12:19] LABS: White Blood Count 6.1 K/mcL (4.3-11.1)
[2021-11-30 12:20] LABS: Basophils % 0.3 %; Eosinophils # 0.1 K/mcL (0.0-0.6); Eosinophils % 1.5 %; Hematocrit 24.1 % (35.3-44.9); Hemoglobin 7.3 g/dL (11.5-15.4); Immature Granulocytes % 4.8 % (0-4); Lymphocytes # 0.7 K/mcL (0.6-4.6); Lymphocytes % 11.2 %; Mean Corpuscular HGB Conc 30.3 g/dL (31.6-35.5); Mean Corpuscular Hemoglobin 28.5 pg (28.0-33.3); Mean Corpuscular Volume 94.1 fL (83.0-100.0); Mean Platelet Volume 10.4 fL (9.4-12.4); Monocytes # 0.6 K/mcL (0.0-1.3); Monocytes % 10.1 %; Neutrophils # 4.4 K/mcL (1.6-8.9); Platelet Count 112 K/mcL (140-400); Red Blood Count 2.56 M/mcL (3.82-4.97); Red Cell Distribution Width 16.2 % (11.5-14.5); Segmented Neutrophils % 72.1 %
[2021-11-30 13:41] LABS: Alanine Aminotransferase 6 Units/L (7-52); Albumin 2.8 g/dL (3.5-5.7); Albumin/Globulin Ratio 1.1 (1.1-2.2); Alkaline Phosphatase 63 Units/L (34-104); Amylase 87 Units/L (29-103); Aspartate Amino Transferase 9 Units/L (13-39); BUN/Creatinine Ratio 14 (6-26); Bilirubin,Direct 0.1 mg/dL (0.0-0.2); Bilirubin,Indirect 0.3 mg/dL (0.0-1.0); Bilirubin,Total 0.4 mg/dL (0.3-1.0); Blood Urea Nitrogen 36 mg/dL (6-20); Calcium 8.4 mg/dL (8.6-10.3); Carbon Dioxide 24 mEq/L (23-29); Chloride 110 mEq/L (98-107); Creatine Kinase < 10 Units/L (30-223); Globulin 2.6 g/dL (2.4-3.5); Glucose 222 mg/dL (70-105); Lipase 237 Units/L (11-82); Magnesium 2.2 mg/dL (1.6-2.6); Osmolality,Calculated 315 (280-300); Phosphorous 3.3 mg/dL (2.7-4.5); Potassium 3.2 mEq/L (3.5-5.1); Sodium 145 mEq/L (136-145); Total Protein 5.4 g/dL (6.4-8.9); eGFR For African Americans 24 (> 60); eGFR For Non-African Americans 20 (> 60)
[2021-11-30] MEDS: Gabapentin 300 MG CAPSULE PO SCH ×2 (13:52→20:50)
[2021-11-30] MEDS: Baclofen 10 MG TABLET PO SCH ×2 (13:53→22:38)
[2021-11-30] MEDS ORDERED: D10% in Water 500 ML IVC PRN (14:05)
[2021-11-30] MEDS ORDERED: Clinimix E 5%-15% SOLUTION 2,000 ML with MVI, adult with vitamin K 10 ML IVC SCH (17:00)
[2021-11-30] MEDS: Propranolol LA (24 HR) 60 MG CAP.SA.24H PO SCH (20:50)
[2021-12-01] MEDS: MetroNIDAZOLE 500 MG/100 ML 500 MG/100 ML BAG IVPB SCH ×4 (00:41→23:15)
[2021-12-01] MEDS: Cefepime HCl 2,000 MG in 0.9 % Sodium Chloride 10 ML IVP SCH ×2 (00:42→09:12)
[2021-12-01] MEDS: Insulin LISPRO 300 UNITS/3 ML VIAL SUBQ SCH ×7 (00:42→23:14)
[2021-12-01 04:40] LABS: Basophils % 0.6 %; Eosinophils # 0.2 K/mcL (0.0-0.6); Eosinophils % 3.4 %; Hematocrit 24.2 % (35.3-44.9); Hemoglobin 7.3 g/dL (11.5-15.4); Immature Granulocytes % 6.9 % (0-4); Lymphocytes # 1.1 K/mcL (0.6-4.6); Lymphocytes % 15.7 %; Mean Corpuscular HGB Conc 30.2 g/dL (31.6-35.5); Mean Corpuscular Hemoglobin 28.4 pg (28.0-33.3); Mean Corpuscular Volume 94.2 fL (83.0-100.0); Mean Platelet Volume 10.1 fL (9.4-12.4); Monocytes # 0.8 K/mcL (0.0-1.3); Monocytes % 10.8 %; Neutrophils # 4.5 K/mcL (1.6-8.9); Nucleated Red Blood Cells 0.3 /100 WBC (0); Platelet Count 104 K/mcL (140-400); Red Blood Count 2.57 M/mcL (3.82-4.97); Red Cell Distribution Width 16.2 % (11.5-14.5); Segmented Neutrophils % 62.6 %; White Blood Count 7.2 K/mcL (4.3-11.1)
[2021-12-01 04:50] LABS: VBG Ionized Calcium 1.25 mmol/L (1.15-1.35)
[2021-12-01 05:21] LABS: Phosphorous 3.1 mg/dL (2.7-4.5)
[2021-12-01 05:24] LABS: Alanine Aminotransferase 5 Units/L (7-52); Albumin 2.7 g/dL (3.5-5.7); Alkaline Phosphatase 57 Units/L (34-104); Amylase 88 Units/L (29-103); Aspartate Amino Transferase 8 Units/L (13-39); BUN/Creatinine Ratio 14 (6-26); Bilirubin,Direct 0.1 mg/dL (0.0-0.2); Bilirubin,Indirect 0.3 mg/dL (0.0-1.0); Bilirubin,Total 0.4 mg/dL (0.3-1.0); Blood Urea Nitrogen 30 mg/dL (6-20); Calcium 8.5 mg/dL (8.6-10.3); Carbon Dioxide 30 mEq/L (23-29); Chloride 106 mEq/L (98-107); Creatine Kinase < 10 Units/L (30-223); Globulin 2.6 g/dL (2.4-3.5); Glucose 234 mg/dL (70-105); Lipase 239 Units/L (11-82); Osmolality,Calculated 306 (280-300); Potassium 3.3 mEq/L (3.5-5.1); Sodium 141 mEq/L (136-145); Total Protein 5.3 g/dL (6.4-8.9); eGFR For African Americans 30 (> 60); eGFR For Non-African Americans 24 (> 60)
[2021-12-01 06:10] LABS: Reactive Lymphocytes Present (Not Present)
[2021-12-01 06:11] LABS: Hypochromasia Present (Not Present)
[2021-12-01] MEDS: *HR* Enoxaparin 40 MG/0.4 ML SYRINGE SQ SCH (06:41)
[2021-12-01] MEDS ORDERED: Venlafaxine XR (24 HR) 75 MG CAP.ER.24H PO SCH (09:00)
[2021-12-01] MEDS: Gabapentin 300 MG CAPSULE PO SCH ×3 (09:21→21:26)
[2021-12-01] MEDS: Baclofen 10 MG TABLET PO SCH ×3 (09:21→21:26)
[2021-12-01] MEDS: Aspirin 81 MG TAB.CHEW PO SCH (09:21)
[2021-12-01] MEDS: clonazePAM 0.5 MG TABLET PO SCH ×4 (09:21→21:34)
[2021-12-01] MEDS: Venlafaxine XR (24 HR) 150 MG CAP.ER.24H PO SCH (09:21)
[2021-12-01] MEDS: Propranolol LA (24 HR) 60 MG CAP.SA.24H PO SCH ×2 (09:21→21:34)
[2021-12-01] MEDS: RisperiDAL 3 MG TABLET PO SCH (09:21)
[2021-12-01] MEDS ORDERED: Clinimix E 5%-15% SOLUTION 2,000 ML with MVI, adult with vitamin K 10 ML IVC SCH (17:00)
[2021-12-01] MEDS ORDERED: Insulin LISPRO 300 UNITS/3 ML VIAL SUBQ SCH (22:00)
[2021-12-01 23:27] LABS: ABG Base Excess -2 mEq/L (-2 to 3); ABG HCO3 27 mEq/L (21-27); ABG Oxygen Saturation 96 % (95-98); ABG PCO2 68 mmHg (35-45); ABG PH 7.21 pH Units (7.32-7.45); ABG PO2 98 mmHg (85-104); ABG TCO2 29 mEq/L (20-26)
[2021-12-02 02:55] LABS: Mean Corpuscular Volume 98.1 fL (83.0-100.0)
[2021-12-02 02:56] LABS: Hematocrit 25.5 % (35.3-44.9); Hemoglobin 7.2 g/dL (11.5-15.4); Mean Corpuscular HGB Conc 28.2 g/dL (31.6-35.5); Mean Corpuscular Hemoglobin 27.7 pg (28.0-33.3); Platelet Count 114 K/mcL (140-400); Red Cell Distribution Width 16.2 % (11.5-14.5); White Blood Count 7.7 K/mcL (4.3-11.1)
[2021-12-02 03:44] LABS: Albumin 2.7 g/dL (3.5-5.7); Bilirubin,Total 0.3 mg/dL (0.3-1.0); Calcium 8.5 mg/dL (8.6-10.3); Globulin 2.6 g/dL (2.4-3.5); Magnesium 2.1 mg/dL (1.6-2.6); Phosphorous 4.4 mg/dL (2.7-4.5); Total Protein 5.3 g/dL (6.4-8.9)
[2021-12-02] MEDS: Insulin LISPRO 300 UNITS/3 ML VIAL SUBQ SCH ×5 (03:49→20:28)
[2021-12-02 03:53] LABS: Thyroid Stimulating Hormone 4.979 mcIU/mL (0.340-5.600)
[2021-12-02] MEDS: *HR* Enoxaparin 40 MG/0.4 ML SYRINGE SQ SCH (06:11)
[2021-12-02] MEDS: RisperiDAL 3 MG TABLET PO SCH (08:58)
[2021-12-02] MEDS: MetroNIDAZOLE 500 MG/100 ML 500 MG/100 ML BAG IVPB SCH ×3 (08:58→23:41)
[2021-12-02] MEDS: Aspirin 81 MG TAB.CHEW PO SCH (08:59)
[2021-12-02] MEDS: Baclofen 10 MG TABLET PO SCH ×3 (08:59→21:02)
[2021-12-02] MEDS: Venlafaxine XR (24 HR) 150 MG CAP.ER.24H PO SCH (08:59)
[2021-12-02] MEDS: Propranolol LA (24 HR) 60 MG CAP.SA.24H PO SCH ×2 (08:59→21:02)
[2021-12-02] MEDS: Gabapentin 300 MG CAPSULE PO SCH ×2 (08:59→14:45)
[2021-12-02] MEDS ORDERED: Furosemide 80 MG in 0.9 % Sodium Chloride 50 ML IVPB ONE (09:25)
[2021-12-02 12:42] LABS: Calcium 8.2 mg/dL (8.6-10.3); Potassium 3.9 mEq/L (3.5-5.1)
[2021-12-02] MEDS: Cefepime HCl 1,000 MG in 0.9 % Sodium Chloride 10 ML IVP SCH (14:51)
[2021-12-02 15:34] LABS: ABG Base Excess -2 mEq/L (-2 to 3); ABG HCO3 25 mEq/L (21-27); ABG Oxygen Saturation 96 % (95-98); ABG PCO2 63 mmHg (35-45); ABG PH 7.21 pH Units (7.32-7.45); ABG PO2 104 mmHg (85-104); ABG TCO2 27 mEq/L (20-26); Blood Gas Modality avaps; Blood Gas VT 500 cc
[2021-12-02] MEDS ORDERED: Clinimix E 5%-15% SOLUTION 2,000 ML with MVI, adult with vitamin K 10 ML IVC SCH (17:00)
[2021-12-02 20:21] LABS: ABG Base Excess -3 mEq/L (-2 to 3); ABG HCO3 25 mEq/L (21-27); ABG Oxygen Saturation 96 % (95-98); ABG PCO2 68 mmHg (35-45); ABG PH 7.18 pH Units (7.32-7.45); ABG PO2 103 mmHg (85-104); ABG TCO2 27 mEq/L (20-26); Blood Gas Modality AVAPS; Blood Gas VT 500 cc
[2021-12-02 21:47] LABS: ABG Base Excess -3 mEq/L (-2 to 3); ABG HCO3 25 mEq/L (21-27); ABG Oxygen Saturation 92 % (95-98); ABG PCO2 61 mmHg (35-45); ABG PH 7.22 pH Units (7.32-7.45); ABG PO2 78 mmHg (85-104); ABG TCO2 27 mEq/L (20-26); Blood Gas Modality AVAPS; Blood Gas VT 550 cc
[2021-12-02 23:39] LABS: ABG Base Excess -4 mEq/L (-2 to 3); ABG HCO3 25 mEq/L (21-27); ABG Oxygen Saturation 93 % (95-98); ABG PCO2 61 mmHg (35-45); ABG PH 7.22 pH Units (7.32-7.45); ABG PO2 83 mmHg (85-104); ABG TCO2 26 mEq/L (20-26); Blood Gas Modality AVAPS; Blood Gas VT 550 cc
[2021-12-03] MEDS: Insulin LISPRO 300 UNITS/3 ML VIAL SUBQ SCH ×7 (00:17→21:26)
[2021-12-03] MEDS ORDERED: Albumin 25% 25gram/100mL 25 GM/100 ML IV.SOLN IVPB ONE (03:02)
[2021-12-03 03:55] LABS: ABG Base Excess -4 mEq/L (-2 to 3); ABG HCO3 24 mEq/L (21-27); ABG Oxygen Saturation 93 % (95-98); ABG PCO2 59 mmHg (35-45); ABG PH 7.21 pH Units (7.32-7.45); ABG PO2 82 mmHg (85-104); ABG TCO2 25 mEq/L (20-26); Blood Gas VT 550 cc
[2021-12-03 04:12] LABS: Hemoglobin 6.9 g/dL (11.5-15.4); Mean Corpuscular Hemoglobin 27.5 pg (28.0-33.3); Red Blood Count 2.51 M/mcL (3.82-4.97); Red Cell Distribution Width 16.1 % (11.5-14.5)
[2021-12-03 04:13] LABS: Hematocrit 24.9 % (35.3-44.9); Mean Corpuscular HGB Conc 27.7 g/dL (31.6-35.5); Mean Corpuscular Volume 99.2 fL (83.0-100.0); Platelet Count 123 K/mcL (140-400); White Blood Count 9.6 K/mcL (4.3-11.1)
[2021-12-03 04:36] LABS: Calcium 8.3 mg/dL (8.6-10.3); Magnesium 2.2 mg/dL (1.6-2.6); Phosphorous 5.2 mg/dL (2.7-4.5); Potassium 4.1 mEq/L (3.5-5.1)
[2021-12-03] MEDS ORDERED: *HR* Heparin 5,000 UNIT/ML VIAL SQ SCH (06:00)
[2021-12-03] MEDS ORDERED: Insulin DETEMIR 100 UNIT/ML X5UNITS SUBQ ONE (06:05)
[2021-12-03] MEDS: MetroNIDAZOLE 500 MG/100 ML 500 MG/100 ML BAG IVPB SCH ×2 (07:28→15:24)
[2021-12-03] MEDS: Aspirin 81 MG TAB.CHEW PO SCH (07:31)
[2021-12-03] MEDS: Venlafaxine XR (24 HR) 75 MG CAP.ER.24H PO SCH (07:32)
[2021-12-03] MEDS: Baclofen 10 MG TABLET PO SCH ×2 (07:32→20:00)
[2021-12-03] MEDS: risperiDONE 1 MG TABLET PO SCH (07:32)
[2021-12-03] MEDS: Propranolol LA (24 HR) 60 MG CAP.SA.24H PO SCH (07:32)
[2021-12-03] MEDS ORDERED: Ipratropium/Albuterol Neb 3 ML IH ONE (07:58)
[2021-12-03] MEDS ORDERED: *HR* Heparin 10,000 UNIT/10 ML VIAL IV PRN (08:59)
[2021-12-03] MEDS ORDERED: 0.9 % Sodium Chloride 250 ML IVC PRN (08:59)
[2021-12-03] MEDS ORDERED: Insulin LISPRO 300 UNITS/3 ML VIAL SUBQ SCH (12:00)
[2021-12-03] MEDS ORDERED: 0.9 % Sodium Chloride 250 ML ONE (15:06)
[2021-12-03] MEDS: Cefepime HCl 1,000 MG in 0.9 % Sodium Chloride 10 ML IVP SCH (15:24)
[2021-12-03] MEDS: Pantoprazole 40 MG VIAL IVP SCH (16:56)
[2021-12-03] MEDS ORDERED: Clinimix 5%-20% SOLUTION 2,000 ML with MVI, adult with vitamin K 10 ML, Sodium Phosph... IVC SCH (17:00)
[2021-12-03] MEDS ORDERED: Vancomycin 2,000 MG/520 ML IV.SOLN IVPB ONE (19:06)
[2021-12-03] MEDS ORDERED: Gabapentin 300 MG CAPSULE PO SCH (21:00)
[2021-12-03] MEDS ORDERED: Insulin DETEMIR 100 UNIT/ML X5UNITS SUBQ SCH (21:00)
[2021-12-04] MEDS: MetroNIDAZOLE 500 MG/100 ML 500 MG/100 ML BAG IVPB SCH ×3 (00:43→16:29)
[2021-12-04] MEDS: Insulin LISPRO 300 UNITS/3 ML VIAL SUBQ SCH ×8 (00:49→20:55)
[2021-12-04] MEDS: Propranolol LA (24 HR) 60 MG CAP.SA.24H PO SCH ×3 (00:54→20:57)
[2021-12-04 02:37] LABS: Influenza A PCR Negative (Negative); Influenza B PCR Negative (Negative); Resp. Syncytial Virus PCR Negative (Negative); SARS-CoV-2 by PCR (In House) Negative (Negative)
[2021-12-04 04:42] LABS: Basophils # 0.1 K/mcL (0.0-0.2); Basophils % 0.8 %; Eosinophils # 0.3 K/mcL (0.0-0.6); Eosinophils % 2.6 %; Hematocrit 24.7 % (35.3-44.9); Hemoglobin 7.4 g/dL (11.5-15.4); Immature Granulocytes % 8.8 % (0-4); Lymphocytes # 1.1 K/mcL (0.6-4.6); Lymphocytes % 10.6 %; Mean Corpuscular Hemoglobin 28.1 pg (28.0-33.3); Mean Corpuscular Volume 93.9 fL (83.0-100.0); Monocytes # 0.7 K/mcL (0.0-1.3); Monocytes % 6.4 %; Neutrophils # 7.5 K/mcL (1.6-8.9); Nucleated Red Blood Cells 0.3 /100 WBC (0); Platelet Count 151 K/mcL (140-400); Red Blood Count 2.63 M/mcL (3.82-4.97); Red Cell Distribution Width 15.9 % (11.5-14.5); Segmented Neutrophils % 70.8 %; White Blood Count 10.6 K/mcL (4.3-11.1)
[2021-12-04] MEDS: Pantoprazole 40 MG VIAL IVP SCH (04:46)
[2021-12-04 04:59] LABS: Albumin 2.7 g/dL (3.5-5.7); Bilirubin,Total 0.4 mg/dL (0.3-1.0); Calcium 8.6 mg/dL (8.6-10.3); Globulin 2.8 g/dL (2.4-3.5); Magnesium 1.9 mg/dL (1.6-2.6); Phosphorous 2.6 mg/dL (2.7-4.5); Potassium 3.1 mEq/L (3.5-5.1); Total Protein 5.5 g/dL (6.4-8.9)
[2021-12-04 05:08] LABS: Microcytosis Present (Not Present); Platelet Estimate Normal (Normal)
[2021-12-04 05:09] LABS: Anisocytosis 1+ (Not Present); Basophilic Stippling 1+ (Not Present); Hypochromasia Present (Not Present)
[2021-12-04] MEDS: Insulin DETEMIR 100 UNIT/ML X5UNITS SUBQ SCH ×3 (06:58→20:58)
[2021-12-04] MEDS: Aspirin 81 MG TAB.CHEW PO SCH (08:11)
[2021-12-04] MEDS: Venlafaxine XR (24 HR) 75 MG CAP.ER.24H PO SCH (08:11)
[2021-12-04] MEDS: Baclofen 10 MG TABLET PO SCH ×2 (08:12→21:01)
[2021-12-04] MEDS: risperiDONE 1 MG TABLET PO SCH (08:12)
[2021-12-04] MEDS ORDERED: Insulin LISPRO 300 UNITS/3 ML VIAL SUBQ ONE (12:20)
[2021-12-04] MEDS: Cefepime HCl 1,000 MG in 0.9 % Sodium Chloride 10 ML IVP SCH (16:29)
[2021-12-04] MEDS ORDERED: Clinimix 5%-20% SOLUTION 2,000 ML with MVI, adult with vitamin K 10 ML, Sodium Phosph... IVC SCH (17:00)
[2021-12-05] MEDS: Insulin LISPRO 300 UNITS/3 ML VIAL SUBQ SCH ×9 (00:03→21:14)
[2021-12-05] MEDS: MetroNIDAZOLE 500 MG/100 ML 500 MG/100 ML BAG IVPB SCH ×3 (00:42→17:05)
[2021-12-05] MEDS ORDERED: Insulin LISPRO 300 UNITS/3 ML VIAL SUBQ ONE (01:15)
[2021-12-05] MEDS ORDERED: Insulin DETEMIR 100 UNIT/ML X5UNITS SUBQ ONE (01:16)
[2021-12-05 02:42] LABS: Albumin 2.7 g/dL (3.5-5.7); Bilirubin,Total 0.4 mg/dL (0.3-1.0); Calcium 8.5 mg/dL (8.6-10.3); Globulin 2.7 g/dL (2.4-3.5); Magnesium 1.9 mg/dL (1.6-2.6); Phosphorous 3.5 mg/dL (2.7-4.5); Potassium 3.3 mEq/L (3.5-5.1); Total Protein 5.4 g/dL (6.4-8.9)
[2021-12-05] MEDS ORDERED: Insulin LISPRO 300 UNITS/3 ML VIAL SUBQ STA (02:58)
[2021-12-05] MEDS: Pantoprazole 40 MG VIAL IVP SCH (08:29)
[2021-12-05] MEDS: Aspirin 81 MG TAB.CHEW PO SCH (08:30)
[2021-12-05] MEDS: risperiDONE 1 MG TABLET PO SCH (08:30)
[2021-12-05] MEDS: Venlafaxine XR (24 HR) 75 MG CAP.ER.24H PO SCH (08:30)
[2021-12-05] MEDS: Baclofen 10 MG TABLET PO SCH ×2 (08:30→21:25)
[2021-12-05] MEDS: Propranolol LA (24 HR) 60 MG CAP.SA.24H PO SCH ×2 (08:31→21:24)
[2021-12-05] MEDS: Insulin DETEMIR 100 UNIT/ML X5UNITS SUBQ SCH ×2 (08:33→21:16)
[2021-12-05] MEDS ORDERED: Potassium Chloride Elixir 20 MEQ/15 ML UDC PO ONE (09:27)
[2021-12-05] MEDS ORDERED: Clinimix E 5%-15% SOLUTION 2,000 ML with MVI, adult with vitamin K 10 ML, Insulin Hum... IVC SCH (17:00)
[2021-12-05] MEDS ORDERED: Clinimix 5%-20% SOLUTION 2,000 ML with MVI, adult with vitamin K 10 ML, Sodium Phosph... IVC SCH (17:00)
[2021-12-05] MEDS: Cefepime HCl 1,000 MG in 0.9 % Sodium Chloride 10 ML IVP SCH (17:03)
[2021-12-06] MEDS: Insulin LISPRO 300 UNITS/3 ML VIAL SUBQ SCH ×10 (01:29→23:47)
[2021-12-06] MEDS: MetroNIDAZOLE 500 MG/100 ML 500 MG/100 ML BAG IVPB SCH ×4 (01:30→23:47)
[2021-12-06 05:00] LABS: Hematocrit 24.2 % (35.3-44.9); Hemoglobin 7.1 g/dL (11.5-15.4); Mean Corpuscular HGB Conc 29.3 g/dL (31.6-35.5); Mean Corpuscular Hemoglobin 27.7 pg (28.0-33.3); Mean Corpuscular Volume 94.5 fL (83.0-100.0); Mean Platelet Volume 12.1 fL (9.4-12.4); Nucleated Red Blood Cells 0.3 /100 WBC (0); Platelet Count 189 K/mcL (140-400); Red Blood Count 2.56 M/mcL (3.82-4.97); Red Cell Distribution Width 15.7 % (11.5-14.5); White Blood Count 10.8 K/mcL (4.3-11.1)
[2021-12-06 05:19] LABS: Albumin 2.5 g/dL (3.5-5.7); Bilirubin,Total 0.4 mg/dL (0.3-1.0); Calcium 8.2 mg/dL (8.6-10.3); Globulin 2.4 g/dL (2.4-3.5); Magnesium 1.9 mg/dL (1.6-2.6); Phosphorous 3.6 mg/dL (2.7-4.5); Potassium 3.3 mEq/L (3.5-5.1); Total Protein 4.9 g/dL (6.4-8.9)
[2021-12-06 05:29] LABS: Basophilic Stippling 1+ (Not Present); Eosinophils # 0.4 K/mcL (0.0-0.6); Hypochromasia Present (Not Present); Lymphocytes # 2.4 K/mcL (0.6-4.6); Monocytes # 0.2 K/mcL (0.0-1.3); Neutrophils # 7.8 K/mcL (1.6-8.9); Platelet Estimate Normal (Normal); Polychromasia 1+ (Not Present)
[2021-12-06] MEDS ORDERED: 0.9 % Sodium Chloride 250 ML IVC PRN (07:42)
[2021-12-06] MEDS: Insulin DETEMIR 100 UNIT/ML X5UNITS SUBQ SCH ×2 (08:21→20:40)
[2021-12-06] MEDS: Venlafaxine XR (24 HR) 75 MG CAP.ER.24H PO SCH (08:24)
[2021-12-06] MEDS: Aspirin 81 MG TAB.CHEW PO SCH (08:24)
[2021-12-06] MEDS: risperiDONE 1 MG TABLET PO SCH (08:24)
[2021-12-06] MEDS: Propranolol LA (24 HR) 60 MG CAP.SA.24H PO SCH ×2 (08:24→20:36)
[2021-12-06] MEDS: Baclofen 10 MG TABLET PO SCH ×2 (08:24→20:36)
[2021-12-06] MEDS: Pantoprazole 40 MG VIAL IVP SCH (08:25)
[2021-12-06 10:29] LABS: Hemoglobin 7.1 g/dL (11.5-15.4); Mean Corpuscular HGB Conc 29.6 g/dL (31.6-35.5); Mean Corpuscular Hemoglobin 27.8 pg (28.0-33.3); Mean Corpuscular Volume 94.1 fL (83.0-100.0); Mean Platelet Volume 11.7 fL (9.4-12.4); Platelet Count 217 K/mcL (140-400); Red Blood Count 2.55 M/mcL (3.82-4.97); Red Cell Distribution Width 15.9 % (11.5-14.5); White Blood Count 10.5 K/mcL (4.3-11.1)
[2021-12-06 12:00] LABS: Adenovirus F 40/41 PCR Not detected (Not detect); Astrovirus PCR Not detected (Not detect); C.difficile Toxin A/B Gene PCR Not detected (Not detect); Campylobacter by PCR Not detected (Not detect); Cryptosporidium by PCR Not detected (Not detect); Cyclospora cayetanensis PCR Not detected (Not detect); Entamoeba histolytica PCR Not detected (Not detect); Enteroaggregative E.coli(EAEC) Not detected (Not detect); Enteropathogenic E.coli(EPEC) Not detected (Not detect); Enterotoxigenic E.coli (ETEC) Not detected (Not detect); Giardia lamblia PCR Not detected (Not detect); Norovirus GI/GII PCR Not detected (Not detect); Plesiomonas shigelloides PCR Not detected (Not detect); Rotavirus A PCR Not detected (Not detect); Salmonella PCR Not detected (Not detect); Sapovirus PCR Not detected (Not detect); Shig/EnteroinvasiveE coli EIEC Not detected (Not detect); Shigalike tox-prod E coli STEC Not detected (Not detect); Vibrio PCR Not detected (Not detect); Vibrio cholerae PCR Not detected (Not detect); Yersinia enterocolitica PCR Not detected (Not detect)
[2021-12-06] MEDS: Ciprofloxacin HCL Soln 5 ML BOTTLE LEFT EYE SCH ×3 (15:58→23:48)
[2021-12-06] MEDS: Cefepime HCl 1,000 MG in 0.9 % Sodium Chloride 10 ML IVP SCH (16:44)
[2021-12-06] MEDS ORDERED: Clinimix 5%-20% SOLUTION 2,000 ML with MVI, adult with vitamin K 10 ML, Sodium Phosph... IVC SCH (17:00)
[2021-12-06] MEDS ORDERED: Clinimix E 5%-15% SOLUTION 2,000 ML with MVI, adult with vitamin K 10 ML IVC SCH (17:00)
[2021-12-06] MEDS ORDERED: Vancomycin 500 MG in 0.9 % Sodium Chloride Mini Bag 100 ML IVPB ONE (18:00)
[2021-12-07] MEDS: Insulin LISPRO 300 UNITS/3 ML VIAL SUBQ SCH ×7 (03:41→20:25)
[2021-12-07] MEDS: Ciprofloxacin HCL Soln 5 ML BOTTLE LEFT EYE SCH ×5 (03:41→20:24)
[2021-12-07 04:08] LABS: Hematocrit 23.9 % (35.3-44.9); Hemoglobin 7.2 g/dL (11.5-15.4); Mean Corpuscular HGB Conc 30.1 g/dL (31.6-35.5); Mean Corpuscular Hemoglobin 28.1 pg (28.0-33.3); Mean Corpuscular Volume 93.4 fL (83.0-100.0); Mean Platelet Volume 11.8 fL (9.4-12.4); Platelet Count 233 K/mcL (140-400); Red Blood Count 2.56 M/mcL (3.82-4.97); Red Cell Distribution Width 15.9 % (11.5-14.5); White Blood Count 10.1 K/mcL (4.3-11.1)
[2021-12-07 04:27] LABS: Albumin 2.5 g/dL (3.5-5.7); Albumin/Globulin Ratio 0.9 (1.1-2.2); Bilirubin,Total 0.3 mg/dL (0.3-1.0); Calcium 8.1 mg/dL (8.6-10.3); Globulin 2.7 g/dL (2.4-3.5); Magnesium 1.8 mg/dL (1.6-2.6); Phosphorous 3.6 mg/dL (2.7-4.5); Potassium 3.5 mEq/L (3.5-5.1); Total Protein 5.2 g/dL (6.4-8.9)
[2021-12-07 04:28] LABS: INR 1.3; Prothrombin Time 14.2 Seconds (9.4-12.1)
[2021-12-07] MEDS: Baclofen 10 MG TABLET PO SCH ×2 (08:28→20:24)
[2021-12-07] MEDS: MetroNIDAZOLE 500 MG/100 ML 500 MG/100 ML BAG IVPB SCH ×2 (08:28→16:27)
[2021-12-07] MEDS: Propranolol LA (24 HR) 60 MG CAP.SA.24H PO SCH ×2 (08:28→20:24)
[2021-12-07] MEDS: risperiDONE 1 MG TABLET PO SCH (08:28)
[2021-12-07] MEDS: Venlafaxine XR (24 HR) 75 MG CAP.ER.24H PO SCH (08:28)
[2021-12-07] MEDS: Pantoprazole 40 MG VIAL IVP SCH (08:28)
[2021-12-07] MEDS: Aspirin 81 MG TAB.CHEW PO SCH (08:28)
[2021-12-07] MEDS: Insulin DETEMIR 100 UNIT/ML X5UNITS SUBQ SCH ×2 (08:41→20:24)
[2021-12-07] MEDS ORDERED: *HR* FentaNYL (PF) 100 MCG/2 ML VIAL IVP ONE (12:18)
[2021-12-07] MEDS ORDERED: 0.9 % Sodium Chloride 500 ML ONE (12:23)
[2021-12-07] MEDS ORDERED: Lidocaine/EPI 1:100k 1% 50 ML VIAL ONE (12:34)
[2021-12-07] MEDS ORDERED: Heparin 1,000 UNITS/500 mL 500 ML ONE (12:34)
[2021-12-07] MEDS ORDERED: *HR* Heparin 5,000 UNIT/ML VIAL ONE (12:55)
[2021-12-07] MEDS: Cefepime HCl 1,000 MG in 0.9 % Sodium Chloride 10 ML IVP SCH (16:29)
[2021-12-07] MEDS ORDERED: Acetaminophen IV 1,000 MG/100 ML BAG IVPB ONE (16:49)
[2021-12-07] MEDS ORDERED: Clinimix E 5%-15% SOLUTION 2,000 ML with MVI, adult with vitamin K 10 ML IVC SCH (17:00)
[2021-12-07] MEDS: Acetaminophen 325 MG TABLET PO PRN (20:24)
[2021-12-08] MEDS: MetroNIDAZOLE 500 MG/100 ML 500 MG/100 ML BAG IVPB SCH ×2 (00:22→08:25)
[2021-12-08] MEDS: Ciprofloxacin HCL Soln 5 ML BOTTLE LEFT EYE SCH ×6 (00:22→20:30)
[2021-12-08] MEDS: Insulin LISPRO 300 UNITS/3 ML VIAL SUBQ SCH ×6 (00:56→20:30)
[2021-12-08 04:24] LABS: Hematocrit 22.8 % (35.3-44.9); Mean Corpuscular HGB Conc 30.7 g/dL (31.6-35.5); Mean Corpuscular Hemoglobin 28.2 pg (28.0-33.3); Mean Corpuscular Volume 91.9 fL (83.0-100.0); Platelet Count 244 K/mcL (140-400); Red Blood Count 2.48 M/mcL (3.82-4.97); Red Cell Distribution Width 15.9 % (11.5-14.5); White Blood Count 8.7 K/mcL (4.3-11.1)
[2021-12-08 04:43] LABS: Albumin 2.6 g/dL (3.5-5.7); Albumin/Globulin Ratio 1.1 (1.1-2.2); Bilirubin,Total 0.3 mg/dL (0.3-1.0); Globulin 2.4 g/dL (2.4-3.5); Magnesium 1.8 mg/dL (1.6-2.6); Phosphorous 4.2 mg/dL (2.7-4.5); Potassium 3.2 mEq/L (3.5-5.1)
[2021-12-08] MEDS ORDERED: Potassium Chloride Elixir 20 MEQ/15 ML UDC PO ONE (07:58)
[2021-12-08] MEDS ORDERED: 0.9 % Sodium Chloride 250 ML IVC PRN (07:59)
[2021-12-08] MEDS: Baclofen 10 MG TABLET PO SCH ×2 (08:24→20:48)
[2021-12-08] MEDS: Aspirin 81 MG TAB.CHEW PO SCH (08:24)
[2021-12-08] MEDS: Venlafaxine XR (24 HR) 75 MG CAP.ER.24H PO SCH (08:24)
[2021-12-08] MEDS: risperiDONE 1 MG TABLET PO SCH (08:25)
[2021-12-08] MEDS: Propranolol LA (24 HR) 60 MG CAP.SA.24H PO SCH ×2 (08:25→20:48)
[2021-12-08] MEDS: Insulin DETEMIR 100 UNIT/ML X5UNITS SUBQ SCH ×2 (08:34→20:48)
[2021-12-08] MEDS ORDERED: Vancomycin 500 MG in 0.9 % Sodium Chloride Mini Bag 100 ML IVPB ONE (16:00)
[2021-12-08] MEDS ORDERED: Clinimix E 5%-15% SOLUTION 2,000 ML with MVI, adult with vitamin K 10 ML IVC SCH (17:00)
[2021-12-09] MEDS: Ciprofloxacin HCL Soln 5 ML BOTTLE LEFT EYE SCH ×6 (00:21→20:56)
[2021-12-09] MEDS: Ondansetron 4 MG/2 ML VIAL IVP PRN ×2 (00:21→08:40)
[2021-12-09] MEDS: Insulin LISPRO 300 UNITS/3 ML VIAL SUBQ SCH ×6 (00:21→20:56)
[2021-12-09 06:05] LABS: Albumin 2.6 g/dL (3.5-5.7); Bilirubin,Total 0.3 mg/dL (0.3-1.0); Calcium 7.7 mg/dL (8.6-10.3); Globulin 2.5 g/dL (2.4-3.5); Magnesium 1.7 mg/dL (1.6-2.6); Phosphorous 3.9 mg/dL (2.7-4.5); Potassium 3.5 mEq/L (3.5-5.1); Total Protein 5.1 g/dL (6.4-8.9)
[2021-12-09] MEDS: Venlafaxine XR (24 HR) 75 MG CAP.ER.24H PO SCH (08:34)
[2021-12-09] MEDS: Baclofen 10 MG TABLET PO SCH ×2 (08:34→20:58)
[2021-12-09] MEDS: Insulin DETEMIR 100 UNIT/ML X5UNITS SUBQ SCH ×2 (08:34→20:59)
[2021-12-09] MEDS: risperiDONE 1 MG TABLET PO SCH (08:34)
[2021-12-09] MEDS: Aspirin 81 MG TAB.CHEW PO SCH (08:34)
[2021-12-09] MEDS: Propranolol LA (24 HR) 60 MG CAP.SA.24H PO SCH ×2 (08:34→20:58)
[2021-12-09 14:13] LABS: Hematocrit 22.1 % (35.3-44.9); Hemoglobin 6.6 g/dL (11.5-15.4); Mean Corpuscular HGB Conc 29.9 g/dL (31.6-35.5); Mean Corpuscular Volume 93.6 fL (83.0-100.0); Mean Platelet Volume 11.7 fL (9.4-12.4); Platelet Count 267 K/mcL (140-400); Red Blood Count 2.36 M/mcL (3.82-4.97); Red Cell Distribution Width 16.6 % (11.5-14.5)
[2021-12-09] MEDS ORDERED: Insulin LISPRO 300 UNITS/3 ML VIAL SUBQ ONE (15:44)
[2021-12-09] MEDS ORDERED: Clinimix E 5%-15% SOLUTION 2,000 ML with MVI, adult with vitamin K 10 ML IVC SCH (17:00)
[2021-12-09] MEDS: *HR* Promethazine 25 MG/ML VIAL IM PRN (17:18)
[2021-12-09] MEDS ORDERED: 0.9 % Sodium Chloride 250 ML ONE (17:53)
[2021-12-09] MEDS: Acetaminophen 325 MG TABLET PO PRN (20:57)
[2021-12-10] MEDS: Insulin LISPRO 300 UNITS/3 ML VIAL SUBQ SCH ×5 (00:53→17:26)
[2021-12-10] MEDS: Ciprofloxacin HCL Soln 5 ML BOTTLE LEFT EYE SCH ×6 (00:54→20:33)
[2021-12-10] MEDS ORDERED: 0.9 % Sodium Chloride 250 ML IVC PRN (07:23)
[2021-12-10] MEDS ORDERED: 0.9 % Sodium Chloride 2,000 ML PRIME SCH (07:30)
[2021-12-10] MEDS: Venlafaxine XR (24 HR) 75 MG CAP.ER.24H PO SCH (08:03)
[2021-12-10] MEDS: Aspirin 81 MG TAB.CHEW PO SCH (08:03)
[2021-12-10] MEDS: risperiDONE 1 MG TABLET PO SCH (08:03)
[2021-12-10] MEDS: Baclofen 10 MG TABLET PO SCH ×2 (08:04→20:34)
[2021-12-10] MEDS: Propranolol LA (24 HR) 60 MG CAP.SA.24H PO SCH ×2 (08:04→20:34)
[2021-12-10] MEDS: Insulin DETEMIR 100 UNIT/ML X5UNITS SUBQ SCH ×2 (08:05→20:34)
[2021-12-10 11:43] LABS: Basophils % 0.6 %; Eosinophils # 0.3 K/mcL (0.0-0.6); Eosinophils % 4.3 %; Hematocrit 24.4 % (35.3-44.9); Hemoglobin 7.5 g/dL (11.5-15.4); Immature Granulocytes % 4.1 % (0-4); Lymphocytes # 1.1 K/mcL (0.6-4.6); Lymphocytes % 16.6 %; Mean Corpuscular HGB Conc 30.7 g/dL (31.6-35.5); Mean Corpuscular Hemoglobin 28.7 pg (28.0-33.3); Mean Platelet Volume 11.6 fL (9.4-12.4); Monocytes # 0.3 K/mcL (0.0-1.3); Monocytes % 5.2 %; Neutrophils # 4.5 K/mcL (1.6-8.9); Nucleated Red Blood Cells 0.3 /100 WBC (0); Platelet Count 268 K/mcL (140-400); Red Blood Count 2.61 M/mcL (3.82-4.97); Red Cell Distribution Width 16.9 % (11.5-14.5); Segmented Neutrophils % 69.2 %; White Blood Count 6.6 K/mcL (4.3-11.1)
[2021-12-10 11:54] LABS: Mean Corpuscular Volume 93.5 fL (83.0-100.0)
[2021-12-10] MEDS ORDERED: *HR* Heparin 10,000 UNIT/10 ML VIAL IV PRN (12:03)
[2021-12-10 12:23] LABS: Calcium 7.6 mg/dL (8.6-10.3); Magnesium 1.8 mg/dL (1.6-2.6); Phosphorous 4.5 mg/dL (2.7-4.5); Potassium 3.5 mEq/L (3.5-5.1)
[2021-12-10 12:28] LABS: Folate 10.2 ng/mL (3.0-16.0)
[2021-12-10] MEDS: *HR* Promethazine 25 MG/ML VIAL IM PRN (15:13)
[2021-12-10] MEDS: Gabapentin 100 MG CAPSULE PO SCH ×2 (15:13→20:33)
[2021-12-10] MEDS ORDERED: clonazePAM 0.5 MG TABLET PO PRN (15:18)
[2021-12-11] MEDS: Ciprofloxacin HCL Soln 5 ML BOTTLE LEFT EYE SCH ×5 (00:30→14:34)
[2021-12-11 06:48] LABS: Hematocrit 23.4 % (35.3-44.9); Hemoglobin 7.3 g/dL (11.5-15.4); Mean Corpuscular HGB Conc 31.2 g/dL (31.6-35.5); Mean Corpuscular Hemoglobin 29.2 pg (28.0-33.3); Mean Corpuscular Volume 93.6 fL (83.0-100.0); Mean Platelet Volume 11.1 fL (9.4-12.4); Platelet Count 250 K/mcL (140-400); Red Cell Distribution Width 17.1 % (11.5-14.5)
[2021-12-11 07:01] LABS: Calcium 7.7 mg/dL (8.6-10.3); Potassium 3.6 mEq/L (3.5-5.1)
[2021-12-11] MEDS: Venlafaxine XR (24 HR) 75 MG CAP.ER.24H PO SCH (07:41)
[2021-12-11] MEDS: Gabapentin 100 MG CAPSULE PO SCH ×3 (07:41→20:37)
[2021-12-11] MEDS: risperiDONE 1 MG TABLET PO SCH (07:41)
[2021-12-11] MEDS: Propranolol LA (24 HR) 60 MG CAP.SA.24H PO SCH ×2 (07:41→20:37)
[2021-12-11] MEDS: Aspirin 81 MG TAB.CHEW PO SCH (07:41)
[2021-12-11] MEDS: Baclofen 10 MG TABLET PO SCH ×2 (07:41→20:37)
[2021-12-11] MEDS: Insulin LISPRO 300 UNITS/3 ML VIAL SUBQ SCH ×3 (07:42→17:14)
[2021-12-11] MEDS: Insulin DETEMIR 100 UNIT/ML X5UNITS SUBQ SCH ×2 (07:44→20:37)
[2021-12-12 07:24] LABS: Calcium 7.9 mg/dL (8.6-10.3); Potassium 3.8 mEq/L (3.5-5.1)
[2021-12-12] MEDS: Aspirin 81 MG TAB.CHEW PO SCH (07:24)
[2021-12-12] MEDS: Gabapentin 100 MG CAPSULE PO SCH ×3 (07:24→20:20)
[2021-12-12] MEDS: Insulin LISPRO 300 UNITS/3 ML VIAL SUBQ SCH ×3 (07:24→16:42)
[2021-12-12] MEDS: Baclofen 10 MG TABLET PO SCH ×2 (07:24→20:20)
[2021-12-12] MEDS: risperiDONE 1 MG TABLET PO SCH (07:24)
[2021-12-12] MEDS: Insulin DETEMIR 100 UNIT/ML X5UNITS SUBQ SCH ×2 (07:24→20:21)
[2021-12-12] MEDS: Venlafaxine XR (24 HR) 75 MG CAP.ER.24H PO SCH (07:24)
[2021-12-12] MEDS: Propranolol LA (24 HR) 60 MG CAP.SA.24H PO SCH ×2 (07:24→20:21)
[2021-12-12] MEDS: *HR* Heparin 5,000 UNIT/ML VIAL SQ SCH ×2 (16:42→20:21)
[2021-12-13] MEDS: *HR* Heparin 5,000 UNIT/ML VIAL SQ SCH ×3 (05:04→20:37)
[2021-12-13] MEDS: Insulin DETEMIR 100 UNIT/ML X5UNITS SUBQ SCH ×2 (08:26→21:09)
[2021-12-13] MEDS: risperiDONE 1 MG TABLET PO SCH (08:26)
[2021-12-13] MEDS: Baclofen 10 MG TABLET PO SCH ×2 (08:26→20:38)
[2021-12-13] MEDS: Aspirin 81 MG TAB.CHEW PO SCH (08:26)
[2021-12-13] MEDS: Insulin LISPRO 300 UNITS/3 ML VIAL SUBQ SCH ×3 (08:26→16:42)
[2021-12-13] MEDS: Venlafaxine XR (24 HR) 75 MG CAP.ER.24H PO SCH (08:26)
[2021-12-13] MEDS: Gabapentin 100 MG CAPSULE PO SCH ×3 (08:26→20:37)
[2021-12-13] MEDS: Propranolol LA (24 HR) 60 MG CAP.SA.24H PO SCH ×2 (08:31→20:38)
[2021-12-13] MEDS ORDERED: 0.9 % Sodium Chloride 250 ML IVC PRN (08:40)
[2021-12-13] MEDS ORDERED: *HR* Heparin 10,000 UNIT/10 ML VIAL IV PRN ×2 (08:40)
[2021-12-13] MEDS ORDERED: 0.9 % Sodium Chloride 2,000 ML PRIME SCH (08:45)
[2021-12-13 15:13] LABS: Calcium 8.5 mg/dL (8.6-10.3); Potassium 3.3 mEq/L (3.5-5.1)
[2021-12-13] MEDS ORDERED: Potassium Chloride Elixir 20 MEQ/15 ML UDC PO ONE (19:53)
[2021-12-14 03:46] LABS: Calcium 8.4 mg/dL (8.6-10.3); Potassium 3.5 mEq/L (3.5-5.1)
[2021-12-14] MEDS: *HR* Heparin 5,000 UNIT/ML VIAL SQ SCH ×3 (05:56→22:32)
[2021-12-14] MEDS: Venlafaxine XR (24 HR) 75 MG CAP.ER.24H PO SCH (08:49)
[2021-12-14] MEDS: Baclofen 10 MG TABLET PO SCH ×2 (08:50→22:30)
[2021-12-14] MEDS: Aspirin 81 MG TAB.CHEW PO SCH (08:50)
[2021-12-14] MEDS: Insulin LISPRO 300 UNITS/3 ML VIAL SUBQ SCH ×3 (08:50→17:19)
[2021-12-14] MEDS: Propranolol LA (24 HR) 60 MG CAP.SA.24H PO SCH ×2 (08:50→22:31)
[2021-12-14] MEDS: risperiDONE 1 MG TABLET PO SCH (08:50)
[2021-12-14] MEDS: Insulin DETEMIR 100 UNIT/ML X5UNITS SUBQ SCH ×2 (08:50→22:32)
[2021-12-14] MEDS: Gabapentin 100 MG CAPSULE PO SCH ×3 (08:50→22:29)
[2021-12-14 13:19] LABS: Hematocrit 25.6 % (35.3-44.9); Hemoglobin 7.9 g/dL (11.5-15.4); Mean Corpuscular HGB Conc 30.9 g/dL (31.6-35.5); Mean Corpuscular Hemoglobin 29.2 pg (28.0-33.3); Mean Corpuscular Volume 94.5 fL (83.0-100.0); Mean Platelet Volume 10.8 fL (9.4-12.4); Platelet Count 210 K/mcL (140-400); Red Blood Count 2.71 M/mcL (3.82-4.97); Red Cell Distribution Width 16.9 % (11.5-14.5); White Blood Count 4.8 K/mcL (4.3-11.1)
[2021-12-15] MEDS: *HR* Heparin 5,000 UNIT/ML VIAL SQ SCH ×2 (06:14→15:57)
[2021-12-15 07:15] LABS: Calcium 8.1 mg/dL (8.6-10.3); Potassium 3.4 mEq/L (3.5-5.1)
[2021-12-15] MEDS ORDERED: *HR* Heparin 10,000 UNIT/10 ML VIAL IV PRN (07:20)
[2021-12-15] MEDS ORDERED: 0.9 % Sodium Chloride 250 ML IVC PRN (07:20)
[2021-12-15] MEDS: Insulin LISPRO 300 UNITS/3 ML VIAL SUBQ SCH ×2 (07:58→13:27)
[2021-12-15] MEDS: risperiDONE 1 MG TABLET PO SCH (12:34)
[2021-12-15] MEDS: Propranolol LA (24 HR) 60 MG CAP.SA.24H PO SCH (12:34)
[2021-12-15] MEDS: Baclofen 10 MG TABLET PO SCH (12:34)
[2021-12-15] MEDS: Insulin DETEMIR 100 UNIT/ML X5UNITS SUBQ SCH (12:34)
[2021-12-15] MEDS: Gabapentin 100 MG CAPSULE PO SCH ×2 (12:34→15:57)
[2021-12-15] MEDS: Venlafaxine XR (24 HR) 75 MG CAP.ER.24H PO SCH (12:34)
[2021-12-15] MEDS: Aspirin 81 MG TAB.CHEW PO SCH (12:34)
[2021-12-15 14:16] VITALS: BP 151/75; PULSE 72; TEMP 98.9; O2SAT 98
[2021-12-15 16:08] LABS: Adenovirus Not Detected (Not Detect); Bordetella Pertussis Not Detected (Not Detect); Chlamydophila pneumoniae Not Detected (Not Detect); Coronavirus 229E Not Detected (Not Detect); Coronavirus HKU1 Not Detected (Not Detect); Coronavirus NL63 Not Detected (Not Detect); Coronavirus OC43 Not Detected (Not Detect); Human Metapneumovirus Not Detected (Not Detect); Human Rhinovirus/Enterovirus Not Detected (Not Detect); Influenza A Subtype 2009 H1 Not Detected (Not Detect); Influenza B Not Detected (Not Detect); Mycoplasma pneumoniae Not Detected (Not Detect); Parainfluenza Virus 1 Not Detected (Not Detect); Parainfluenza Virus 2 Not Detected (Not Detect); Parainfluenza Virus 3 Not Detected (Not Detect); Parainfluenza Virus 4 Not Detected (Not Detect); Respiratory Syncytial Virus Not Detected (Not Detect); SARS-CoV-2 Not Detected (Not Detect)
== END 2021-12-15 17:28 | disposition other institution (70) | DRG 871 ==
LOC: EMEROOARM 12:20 → 2NNU 12:20 → SUATTDRO 17:05 → ICNU 11-24 16:02 → 2NNU 11-30 → 2NENU 12-01 17:02
PROVIDERS: ADMIT Student in an Organized Health Care Education/Training Program; ATTEND Internal Medicine
PROC: IRPERMA (2021-12-07 12:00)

== ENCOUNTER 2022-01-02 17:32 | Inpatient (IN) ==
[2022-01-02] MEDS ORDERED: 0.9 % Sodium Chloride 1,000 ML ONE (17:43)
[2022-01-02] MEDS ORDERED: Cefepime HCl 2,000 MG in 0.9 % Sodium Chloride 10 ML IVP ONE (17:45)
[2022-01-02] MEDS ORDERED: 0.9 % Sodium Chloride 1,000 ML IVC ONE (17:45)
[2022-01-02] MEDS ORDERED: Vancomycin 2,000 MG/520 ML IV.SOLN IVPB ONE (17:45)
[2022-01-02] MEDS ORDERED: Clindamycin 900 MG/50 ML 900 MG/50 ML IV.SOLN IVPB ONE (17:47)
[2022-01-02 18:11] LABS: Basophils % 0.3 %; Eosinophils # 0.2 K/mcL (0.0-0.6); Eosinophils % 2.3 %; Hematocrit 27.1 % (35.3-44.9); Hemoglobin 8.4 g/dL (11.5-15.4); Immature Granulocytes % 0.9 % (0-4); Lymphocytes # 1.5 K/mcL (0.6-4.6); Lymphocytes % 19.5 %; Mean Corpuscular Hemoglobin 29.5 pg (28.0-33.3); Mean Corpuscular Volume 95.1 fL (83.0-100.0); Mean Platelet Volume 10.8 fL (9.4-12.4); Monocytes # 0.3 K/mcL (0.0-1.3); Monocytes % 4.4 %; Neutrophils # 5.7 K/mcL (1.6-8.9); Platelet Count 169 K/mcL (140-400); Red Blood Count 2.85 M/mcL (3.82-4.97); Red Cell Distribution Width 15.5 % (11.5-14.5); Segmented Neutrophils % 72.6 %; White Blood Count 7.8 K/mcL (4.3-11.1)
[2022-01-02 18:15] LABS: VBG HCO3 23 mEq/L (21-27); VBG PCO2 52 mmHg (41-51); VBG PH 7.24 pH Units (7.32-7.42); VBG PO2 87 mmHg (25-50)
[2022-01-02 18:16] LABS: INR 1.3; Prothrombin Time 14.2 Seconds (9.4-12.1)
[2022-01-02 18:19] LABS: Activated Partial Thrombo Time 32.7 Seconds (26.0-36.0)
[2022-01-02 19:03] LABS: Alanine Aminotransferase 7 Units/L (7-52); Albumin/Globulin Ratio 0.9 (1.1-2.2); Alkaline Phosphatase 120 Units/L (34-104); Amylase 23 Units/L (29-103); Aspartate Amino Transferase 7 Units/L (13-39); BUN/Creatinine Ratio 9 (6-26); Bilirubin,Direct 0.2 mg/dL (0.0-0.2); Bilirubin,Indirect 0.3 mg/dL (0.0-1.0); Bilirubin,Total 0.5 mg/dL (0.3-1.0); Blood Urea Nitrogen 30 mg/dL (6-20); Calcium 7.4 mg/dL (8.6-10.3); Carbon Dioxide 22 mEq/L (23-29); Chloride 99 mEq/L (98-107); Globulin 3.4 g/dL (2.4-3.5); Glucose 112 mg/dL (70-105); Lipase 47 Units/L (11-82); Magnesium 1.1 mg/dL (1.6-2.6); Osmolality,Calculated 289 (280-300); Phosphorous 8.1 mg/dL (2.7-4.5); Potassium 3.3 mEq/L (3.5-5.1); Sodium 136 mEq/L (136-145); Total Protein 6.4 g/dL (6.4-8.9); Troponin I < 0.03 ng/mL (< 0.04); eGFR For African Americans 18 (> 60); eGFR For Non-African Americans 15 (> 60)
[2022-01-02 19:24] LABS: Bilirubin,Urine Negative (Negative); Blood,Urine Negative (Negative); Clarity,Urine Clear (Clear); Color,Urine Yellow (Yellow); Glucose,Urine (UA) 30 mg/dL (Normal); Hyaline Casts,Urine Many per lpf (None Seen); Ketones,Urine Negative (Negative); Leukocyte Esterase,Urine Trace (Negative); Mucus,Urine Few per lpf (None-Few); Nitrite,Urine Negative (Negative); PH,Urine 5.5 pH Units (5.0-8.0); Protein,Urine 30 mg/dL (Neg-Trace); RBC,Urine 0-3 per hpf (0-3); Specific Gravity,Urine 1.029 (1.010-1.025); Squamous Epithelial Cell,Urine Few per hpf (None-Few)
[2022-01-02] MEDS ORDERED: 0.9 % Sodium Chloride 250 ML ONE (19:36)
[2022-01-02] MEDS ORDERED: *HR* Norepinephrine 4 MG/4 ML VIAL IVC ONE (19:36)
[2022-01-02] MEDS ORDERED: Norepinephrine 4 MG/254 ML IV.SOLN IVC SCH (19:45)
[2022-01-02] MEDS ORDERED: Naloxone 0.4 MG/ML INJ IVP PRN (23:13)
[2022-01-02] MEDS ORDERED: Ringers Solution, Lactated 1,000 ML IVC SCH ×2 (23:15→23:21)
[2022-01-02] MEDS ORDERED: D5% in Water 1,000 ML IVC PRN (23:17)
[2022-01-02] MEDS ORDERED: *HR* Dextrose 50 % in Water (Syg) 50 ML SYRINGE IVP PRN (23:17)
[2022-01-02] MEDS ORDERED: Dextrose Gel 15 GM/37.5 ML TUBE PO PRN ×2 (23:17)
[2022-01-03] MEDS ORDERED: 0.9 % Sodium Chloride 1,000 ML IVC ONE (00:59)
[2022-01-03] MEDS: Insulin LISPRO 300 UNITS/3 ML VIAL SUBQ SCH ×5 (01:28→23:31)
[2022-01-03] MEDS: MetroNIDAZOLE 500 MG/100 ML 500 MG/100 ML BAG IVPB SCH ×3 (02:15→16:35)
[2022-01-03 05:49] LABS: Basophils % 0.3 %; Eosinophils # 0.1 K/mcL (0.0-0.6); Eosinophils % 1.4 %; Hematocrit 24.7 % (35.3-44.9); Hemoglobin 7.5 g/dL (11.5-15.4); Immature Granulocytes % 0.6 % (0-4); Lymphocytes # 0.8 K/mcL (0.6-4.6); Lymphocytes % 12.9 %; Mean Corpuscular HGB Conc 30.4 g/dL (31.6-35.5); Mean Corpuscular Hemoglobin 29.2 pg (28.0-33.3); Mean Corpuscular Volume 96.1 fL (83.0-100.0); Mean Platelet Volume 10.9 fL (9.4-12.4); Monocytes # 0.3 K/mcL (0.0-1.3); Monocytes % 4.3 %; Neutrophils # 5.1 K/mcL (1.6-8.9); Platelet Count 162 K/mcL (140-400); Red Blood Count 2.57 M/mcL (3.82-4.97); Red Cell Distribution Width 15.3 % (11.5-14.5); Segmented Neutrophils % 80.5 %; White Blood Count 6.3 K/mcL (4.3-11.1)
[2022-01-03] MEDS ORDERED: Albumin 25% 25gram/100mL 25 GM/100 ML IV.SOLN IVPB ONE (06:01)
[2022-01-03] MEDS ORDERED: 0.9 % Sodium Chloride 500 ML IVC ONE (06:01)
[2022-01-03 06:14] LABS: Alanine Aminotransferase 6 Units/L (7-52); Albumin 2.8 g/dL (3.5-5.7); Alkaline Phosphatase 117 Units/L (34-104); Aspartate Amino Transferase 6 Units/L (13-39); BUN/Creatinine Ratio 10 (6-26); Bilirubin,Total 0.4 mg/dL (0.3-1.0); Blood Urea Nitrogen 29 mg/dL (6-20); Calcium 7.3 mg/dL (8.6-10.3); Carbon Dioxide 22 mEq/L (23-29); Chloride 101 mEq/L (98-107); Globulin 2.9 g/dL (2.4-3.5); Glucose 143 mg/dL (70-105); Magnesium 1.9 mg/dL (1.6-2.6); Osmolality,Calculated 290 (280-300); Phosphorous 8.1 mg/dL (2.7-4.5); Potassium 3.3 mEq/L (3.5-5.1); Sodium 136 mEq/L (136-145); Total Protein 5.7 g/dL (6.4-8.9); eGFR For African Americans 21 (> 60); eGFR For Non-African Americans 17 (> 60)
[2022-01-03 06:15] LABS: Influenza A PCR Negative (Negative); Influenza B PCR Negative (Negative); Resp. Syncytial Virus PCR Negative (Negative)
[2022-01-03 06:21] LABS: SARS-CoV-2 by PCR (In House) Negative (Negative)
[2022-01-03] MEDS ORDERED: MetroNIDAZOLE 500 MG/100 ML 500 MG/100 ML BAG IVPB SCH (08:00)
[2022-01-03 09:29] LABS: ABG Base Excess -5 mEq/L (-2 to 3); ABG HCO3 22 mEq/L (21-27); ABG Oxygen Saturation 97 % (95-98); ABG PCO2 45 mmHg (35-45); ABG PH 7.29 pH Units (7.32-7.45); ABG PO2 105 mmHg (85-104); ABG TCO2 23 mEq/L (20-26)
[2022-01-03 10:22] LABS: C-Reactive Protein > 300 mg/L (Less than 10)
[2022-01-03 11:44] LABS: Amphetamine Screen,Urine Negative ng/mL (Cutoff=1000); Barbiturate Screen,Urine Negative ng/mL (Cutoff=200); Benzodiazepines Screen,Urine Negative ng/mL (Cutoff=200); Cannabinoid Screen,Urine Negative ng/mL (Cutoff = 50); Cocaine Screen,Urine Negative ng/mL (Cutoff= 300); Opiate Screen,Urine Negative ng/mL (Cutoff=300); Phencyclidine Screen,Urine Negative ng/mL (Cutoff=25)
[2022-01-03] MEDS: Cefepime HCl 2,000 MG in 0.9 % Sodium Chloride 10 ML IVP SCH ×2 (12:16→22:17)
[2022-01-03 13:01] LABS: Hematocrit 23.3 % (35.3-44.9); Hemoglobin 7.1 g/dL (11.5-15.4)
[2022-01-03] MEDS ORDERED: Ringers Solution, Lactated 1,000 ML IVC SCH (13:45)
[2022-01-03] MEDS ORDERED: Cefepime HCl 2,000 MG in 0.9 % Sodium Chloride 10 ML IVP SCH (18:00)
[2022-01-03] MEDS: *HR* HYDROcodone/Acet 5/325 mg TABLET PO PRN (18:19)
[2022-01-03 18:41] LABS: Hematocrit 23.5 % (35.3-44.9); Hemoglobin 7.1 g/dL (11.5-15.4)
[2022-01-03 18:58] LABS: Triglycerides 106 mg/dL (< 150); Vancomycin,Trough 15 mcg/mL (5-10)
[2022-01-03] MEDS ORDERED: Vancomycin 1,750 MG in 0.9 % Sodium Chloride 250 ML IVPB SCH (20:00)
[2022-01-03] MEDS ORDERED: Vancomycin 1,250 MG/262.5 ML IV.SOLN IVPB ONE (20:00)
[2022-01-03 22:46] LABS: A.calcoaceticus-baumannii cplx Not Detected (Not Detect); Bacteroides fragilis by PCR Not Detected (Not Detect); Candida albicans by PCR Not Detected (Not Detect); Candida auris by PCR Not Detected (Not Detect); Candida glabrata by PCR Not Detected (Not Detect); Candida krusei by PCR Not Detected (Not Detect); Candida parapsilosis by PCR Not Detected (Not Detect); Candida tropicalis by PCR Not Detected (Not Detect); Crypto. neoformans/gattii PCR Not Detected (Not Detect); Enterobacter cloacae Cmplx PCR Not Detected (Not Detect); Enterobacterales by PCR Not Detected (Not Detect); Enterococcus faecalis by PCR Not Detected (Not Detect); Enterococcus faecium by PCR Not Detected (Not Detect); Escherichia coli by PCR Not Detected (Not Detect); Klebs. pneumoniae group by PCR Not Detected (Not Detect); Klebsiella aerogenes by PCR Not Detected (Not Detect); Klebsiella oxytoca by PCR Not Detected (Not Detect); Proteus by PCR Not Detected (Not Detect); Pseudomonas aeruginosa by PCR Not Detected (Not Detect); Salmonella species by PCR Not Detected (Not Detect); Serratia marcescens by PCR Not Detected (Not Detect); Staph epidermidis by PCR DETECTED (Not Detect); Staph lugdunensis by PCR Not Detected (Not Detect); Staphylococcus aureus by PCR Not Detected (Not Detect); Stenotrophomonas maltophilia Not Detected (Not Detect); Streptococcus agalactiae(B)PCR Not Detected (Not Detect); Streptococcus by PCR Not Detected (Not Detect); Streptococcus pneumoniae PCR Not Detected (Not Detect); Streptococcus pyogenes (A) PCR Not Detected (Not Detect); mecA/C Methicillin-Resist Gene DETECTED (Not Detect)
[2022-01-04] MEDS: MetroNIDAZOLE 500 MG/100 ML 500 MG/100 ML BAG IVPB SCH ×3 (01:09→17:11)
[2022-01-04] MEDS: Insulin LISPRO 300 UNITS/3 ML VIAL SUBQ SCH ×3 (05:42→17:19)
[2022-01-04] MEDS: Cefepime HCl 2,000 MG in 0.9 % Sodium Chloride 10 ML IVP SCH ×2 (09:36→17:11)
[2022-01-04] MEDS: Acetaminophen 325 MG TABLET PO PRN (09:41)
[2022-01-04 10:16] LABS: Basophils % 0.5 %; Eosinophils # 0.1 K/mcL (0.0-0.6); Eosinophils % 1.2 %; Hematocrit 25.3 % (35.3-44.9); Hemoglobin 7.5 g/dL (11.5-15.4); Lymphocytes # 0.6 K/mcL (0.6-4.6); Lymphocytes % 13.7 %; Mean Corpuscular HGB Conc 29.6 g/dL (31.6-35.5); Mean Corpuscular Hemoglobin 28.3 pg (28.0-33.3); Mean Corpuscular Volume 95.5 fL (83.0-100.0); Mean Platelet Volume 10.2 fL (9.4-12.4); Monocytes # 0.2 K/mcL (0.0-1.3); Monocytes % 5.1 %; Neutrophils # 3.2 K/mcL (1.6-8.9); Platelet Count 247 K/mcL (140-400); Red Blood Count 2.65 M/mcL (3.82-4.97); Red Cell Distribution Width 15.4 % (11.5-14.5); Segmented Neutrophils % 78.5 %; White Blood Count 4.1 K/mcL (4.3-11.1)
[2022-01-04 10:49] LABS: Calcium 8.6 mg/dL (8.6-10.3); Magnesium 1.8 mg/dL (1.6-2.6); Potassium 3.8 mEq/L (3.5-5.1)
[2022-01-04] MEDS: Venlafaxine XR (24 HR) 150 MG CAP.ER.24H PO SCH (17:10)
[2022-01-04] MEDS: Simethicone 80 MG TAB.CHEW PO PRN (17:10)
[2022-01-04] MEDS: *HR* HYDROcodone/Acet 5/325 mg TABLET PO PRN (19:09)
[2022-01-04] MEDS: Baclofen 10 MG TABLET PO SCH (19:59)
[2022-01-04] MEDS: risperiDONE 1 MG TABLET PO SCH (19:59)
[2022-01-04] MEDS ORDERED: *HR* OxyCODONE Immed Rel 5 MG TABLET PO ONE (21:05)
[2022-01-04] MEDS ORDERED: Vancomycin 1,250 MG/262.5 ML IV.SOLN IVPB ONE (22:00)
[2022-01-05] MEDS: Cefepime HCl 2,000 MG in 0.9 % Sodium Chloride 10 ML IVP SCH ×3 (02:22→18:04)
[2022-01-05] MEDS: MetroNIDAZOLE 500 MG/100 ML 500 MG/100 ML BAG IVPB SCH ×3 (02:28→18:05)
[2022-01-05] MEDS: Insulin LISPRO 300 UNITS/3 ML VIAL SUBQ SCH ×4 (02:32→17:58)
[2022-01-05] MEDS: *HR* HYDROcodone/Acet 5/325 mg TABLET PO PRN ×4 (03:42→22:21)
[2022-01-05] MEDS: Baclofen 10 MG TABLET PO SCH ×2 (07:59→22:04)
[2022-01-05] MEDS: Venlafaxine XR (24 HR) 150 MG CAP.ER.24H PO SCH (07:59)
[2022-01-05 09:27] LABS: Basophils % 0.6 %; Eosinophils % 1.2 %; Hematocrit 23.4 % (35.3-44.9); Hemoglobin 6.9 g/dL (11.5-15.4); Immature Granulocytes % 0.6 % (0-4); Lymphocytes # 0.6 K/mcL (0.6-4.6); Lymphocytes % 18.4 %; Mean Corpuscular HGB Conc 29.5 g/dL (31.6-35.5); Mean Corpuscular Hemoglobin 28.4 pg (28.0-33.3); Mean Corpuscular Volume 96.3 fL (83.0-100.0); Monocytes # 0.3 K/mcL (0.0-1.3); Monocytes % 7.2 %; Neutrophils # 2.5 K/mcL (1.6-8.9); Platelet Count 258 K/mcL (140-400); Red Blood Count 2.43 M/mcL (3.82-4.97); Red Cell Distribution Width 14.9 % (11.5-14.5); White Blood Count 3.5 K/mcL (4.3-11.1)
[2022-01-05 09:52] LABS: Immunoglobulin G Subclass 1 527 mg/dL (240-1118); Immunoglobulin G Subclass 2 219 mg/dL (124-549); Immunoglobulin G Subclass 3 31 mg/dL (21-134); Immunoglobulin G Subclass 4 13 mg/dL (1-123)
[2022-01-05 11:12] LABS: BUN/Creatinine Ratio 18 (6-26); Blood Urea Nitrogen 14 mg/dL (6-20); Calcium 8.1 mg/dL (8.6-10.3); Carbon Dioxide 24 mEq/L (23-29); Chloride 109 mEq/L (98-107); Glucose 197 mg/dL (70-105); Magnesium 1.4 mg/dL (1.6-2.6); Osmolality,Calculated 294 (280-300); Phosphorous 2.6 mg/dL (2.7-4.5); Potassium 3.4 mEq/L (3.5-5.1); Sodium 139 mEq/L (136-145); eGFR For African Americans > 60 (> 60); eGFR For Non-African Americans > 60 (> 60)
[2022-01-05] MEDS ORDERED: 0.9 % Sodium Chloride 250 ML ONE (13:50)
[2022-01-05 18:17] LABS: Hematocrit 25.9 % (35.3-44.9)
[2022-01-05] MEDS: risperiDONE 1 MG TABLET PO SCH (22:04)
[2022-01-06] MEDS: Insulin LISPRO 300 UNITS/3 ML VIAL SUBQ SCH ×4 (00:13→17:43)
[2022-01-06] MEDS: Vancomycin 1,500 MG/265 ML IV.SOLN IVPB SCH ×2 (00:13→23:58)
[2022-01-06 00:37] LABS: Basophils % 0.6 %; Eosinophils # 0.1 K/mcL (0.0-0.6); Hematocrit 25.3 % (35.3-44.9); Hemoglobin 7.7 g/dL (11.5-15.4); Immature Granulocytes % 0.9 % (0-4); Lymphocytes # 0.8 K/mcL (0.6-4.6); Lymphocytes % 23.1 %; Mean Corpuscular HGB Conc 30.4 g/dL (31.6-35.5); Mean Corpuscular Hemoglobin 28.2 pg (28.0-33.3); Mean Corpuscular Volume 92.7 fL (83.0-100.0); Monocytes # 0.2 K/mcL (0.0-1.3); Monocytes % 6.9 %; Neutrophils # 2.3 K/mcL (1.6-8.9); Nucleated Red Blood Cells 0.6 /100 WBC (0); Platelet Count 265 K/mcL (140-400); Red Blood Count 2.73 M/mcL (3.82-4.97); Red Cell Distribution Width 15.9 % (11.5-14.5); Segmented Neutrophils % 66.5 %; White Blood Count 3.5 K/mcL (4.3-11.1)
[2022-01-06 00:55] LABS: BUN/Creatinine Ratio 19 (6-26); Blood Urea Nitrogen 12 mg/dL (6-20); Calcium 8.2 mg/dL (8.6-10.3); Carbon Dioxide 23 mEq/L (23-29); Chloride 111 mEq/L (98-107); Glucose 153 mg/dL (70-105); Magnesium 1.5 mg/dL (1.6-2.6); Osmolality,Calculated 295 (280-300); Phosphorous 2.4 mg/dL (2.7-4.5); Potassium 3.9 mEq/L (3.5-5.1); Sodium 141 mEq/L (136-145); eGFR For African Americans > 60 (> 60); eGFR For Non-African Americans > 60 (> 60)
[2022-01-06] MEDS: MetroNIDAZOLE 500 MG/100 ML 500 MG/100 ML BAG IVPB SCH (01:52)
[2022-01-06] MEDS: Cefepime HCl 2,000 MG in 0.9 % Sodium Chloride 10 ML IVP SCH ×3 (01:52→17:42)
[2022-01-06] MEDS ORDERED: 0.9 % Sodium Chloride 500 ML ONE ×2 (09:45→09:59)
[2022-01-06] MEDS ORDERED: *HR* Midazolam HCl 2 MG/2 ML VIAL ONE (09:50)
[2022-01-06] MEDS ORDERED: *HR* FentaNYL (PF) 100 MCG/2 ML VIAL ONE (09:50)
[2022-01-06] MEDS ORDERED: *HR* Midazolam HCl 2 MG/2 ML VIAL IVP ONE ×2 (09:52→10:27)
[2022-01-06] MEDS ORDERED: *HR* FentaNYL (PF) 100 MCG/2 ML VIAL IVP ONE ×2 (09:52→10:26)
[2022-01-06] MEDS ORDERED: 0.9 % Sodium Chloride 1,000 ML IVC SCH (10:00)
[2022-01-06] MEDS ORDERED: Iopamidol - 300 50 ML VIAL IVP ONE (10:57)
[2022-01-06] MEDS: Baclofen 10 MG TABLET PO SCH ×2 (13:23→20:30)
[2022-01-06] MEDS: *HR* HYDROcodone/Acet 5/325 mg TABLET PO PRN ×2 (13:23→20:31)
[2022-01-06] MEDS: Venlafaxine XR (24 HR) 150 MG CAP.ER.24H PO SCH (13:23)
[2022-01-06] MEDS: Acetaminophen 325 MG TABLET PO PRN (17:42)
[2022-01-06] MEDS: metroNIDAZOLE 500 MG TABLET PO SCH ×2 (17:42→23:47)
[2022-01-06] MEDS: Gabapentin 100 MG CAPSULE PO SCH ×2 (17:42→23:47)
[2022-01-06] MEDS: Melatonin 3 MG TABLET PO PRN (20:30)
[2022-01-06] MEDS: risperiDONE 1 MG TABLET PO SCH (20:30)
[2022-01-07] MEDS: Cefepime HCl 2,000 MG in 0.9 % Sodium Chloride 10 ML IVP SCH ×3 (02:42→17:25)
[2022-01-07] MEDS: *HR* HYDROcodone/Acet 5/325 mg TABLET PO PRN ×4 (02:51→23:19)
[2022-01-07] MEDS: Ondansetron ODT 4 MG TAB.RAPDIS SL PRN (04:25)
[2022-01-07 05:17] LABS: Basophils % 0.5 %; Eosinophils # 0.1 K/mcL (0.0-0.6); Eosinophils % 1.3 %; Hemoglobin 7.2 g/dL (11.5-15.4); Immature Granulocytes % 1.1 % (0-4); Lymphocytes # 0.8 K/mcL (0.6-4.6); Lymphocytes % 20.7 %; Mean Corpuscular Hemoglobin 28.2 pg (28.0-33.3); Mean Corpuscular Volume 94.1 fL (83.0-100.0); Mean Platelet Volume 10.5 fL (9.4-12.4); Monocytes # 0.2 K/mcL (0.0-1.3); Monocytes % 6.4 %; Neutrophils # 2.6 K/mcL (1.6-8.9); Platelet Count 298 K/mcL (140-400); Red Blood Count 2.55 M/mcL (3.82-4.97); Red Cell Distribution Width 15.3 % (11.5-14.5); White Blood Count 3.8 K/mcL (4.3-11.1)
[2022-01-07 05:25] LABS: BUN/Creatinine Ratio 17 (6-26); Blood Urea Nitrogen 11 mg/dL (6-20); Carbon Dioxide 24 mEq/L (23-29); Chloride 111 mEq/L (98-107); Glucose 179 mg/dL (70-105); Magnesium 1.5 mg/dL (1.6-2.6); Osmolality,Calculated 294 (280-300); Potassium 3.9 mEq/L (3.5-5.1); Sodium 140 mEq/L (136-145); eGFR For African Americans > 60 (> 60); eGFR For Non-African Americans > 60 (> 60)
[2022-01-07] MEDS: Insulin LISPRO 300 UNITS/3 ML VIAL SUBQ SCH ×5 (06:23→23:46)
[2022-01-07] MEDS: Gabapentin 100 MG CAPSULE PO SCH ×3 (09:49→21:07)
[2022-01-07] MEDS: Baclofen 10 MG TABLET PO SCH ×2 (09:49→21:06)
[2022-01-07] MEDS: metroNIDAZOLE 500 MG TABLET PO SCH ×3 (09:50→21:06)
[2022-01-07] MEDS: Venlafaxine XR (24 HR) 150 MG CAP.ER.24H PO SCH (09:50)
[2022-01-07] MEDS: risperiDONE 1 MG TABLET PO SCH (21:06)
[2022-01-07] MEDS: *HR* HYDROcodone/Acet 10/325 mg TABLET PO PRN (21:06)
[2022-01-07] MEDS: Vancomycin 1,500 MG/265 ML IV.SOLN IVPB SCH (23:46)
[2022-01-08] MEDS: Vancomycin 1,750 MG/517.5 ML IV.SOLN IVPB SCH (00:26)
[2022-01-08] MEDS: Cefepime HCl 2,000 MG in 0.9 % Sodium Chloride 10 ML IVP SCH ×3 (02:06→17:09)
[2022-01-08 04:12] LABS: Basophils % 0.7 %; Eosinophils # 0.1 K/mcL (0.0-0.6); Eosinophils % 1.7 %; Hemoglobin 7.2 g/dL (11.5-15.4); Lymphocytes % 24.1 %; Mean Corpuscular Volume 93.4 fL (83.0-100.0); Mean Platelet Volume 10.1 fL (9.4-12.4); Monocytes # 0.2 K/mcL (0.0-1.3); Monocytes % 5.9 %; Neutrophils # 2.7 K/mcL (1.6-8.9); Platelet Count 268 K/mcL (140-400); Red Blood Count 2.57 M/mcL (3.82-4.97); Red Cell Distribution Width 14.7 % (11.5-14.5); Segmented Neutrophils % 66.6 %; White Blood Count 4.1 K/mcL (4.3-11.1)
[2022-01-08 04:23] LABS: BUN/Creatinine Ratio 15 (6-26); Blood Urea Nitrogen 9 mg/dL (6-20); Calcium 8.3 mg/dL (8.6-10.3); Carbon Dioxide 23 mEq/L (23-29); Chloride 113 mEq/L (98-107); Glucose 123 mg/dL (70-105); Magnesium 1.2 mg/dL (1.6-2.6); Osmolality,Calculated 292 (280-300); Phosphorous 2.8 mg/dL (2.7-4.5); Potassium 3.6 mEq/L (3.5-5.1); Sodium 141 mEq/L (136-145); eGFR For African Americans > 60 (> 60); eGFR For Non-African Americans > 60 (> 60)
[2022-01-08] MEDS: Ondansetron ODT 4 MG TAB.RAPDIS SL PRN (04:52)
[2022-01-08] MEDS: Insulin LISPRO 300 UNITS/3 ML VIAL SUBQ SCH ×3 (05:28→17:10)
[2022-01-08] MEDS ORDERED: Lidocaine HCL 4 ML Topical Solution (Laryng-O-Jet Kit Sterile Pak) TP ONE (08:07)
[2022-01-08] MEDS ORDERED: *HR* Propofol 200 MG/20 ML VIAL IVP ONE (08:08)
[2022-01-08] MEDS ORDERED: *HR* Rocuronium Bromide 50 MG/5 ML VIAL ONE ×3 (08:08→12:00)
[2022-01-08] MEDS ORDERED: Lidocaine -MPF 2% 5 ML VIAL ONE (08:08)
[2022-01-08] MEDS ORDERED: Ondansetron 4 MG/2 ML VIAL ONE ×2 (08:08→12:27)
[2022-01-08] MEDS ORDERED: *HR* Succinylcholine 200 MG/10 ML VIAL IVP ONE (08:08)
[2022-01-08] MEDS ORDERED: Albumin Human 5% 12.5 GM/250 ML IV.SOLN ONE (09:08)
[2022-01-08] MEDS ORDERED: Ketamine HCL *QUVA* 50mg (1mL) SYRINGE ONE (09:09)
[2022-01-08] MEDS ORDERED: Dexmedetomidine HCl 400 MCG/100 ML MLS IVC ONE (09:09)
[2022-01-08] MEDS ORDERED: *HR* Phenylephrine 10 MG/ML VIAL ONE (09:12)
[2022-01-08] MEDS ORDERED: *HR* Magnesium Sulfate 1 GM/2 ML VIAL ONE (09:12)
[2022-01-08] MEDS ORDERED: *HR* Midazolam HCl 2 MG/2 ML VIAL ONE (09:26)
[2022-01-08] MEDS ORDERED: *HR* FentaNYL (PF) 100 MCG/2 ML VIAL ONE ×2 (09:26→14:01)
[2022-01-08] MEDS ORDERED: *HR* HYDROMORPHONE 2 MG/ML VIAL ONE (09:27)
[2022-01-08] MEDS: metroNIDAZOLE 500 MG TABLET PO SCH ×3 (09:31→21:03)
[2022-01-08] MEDS: Gabapentin 100 MG CAPSULE PO SCH ×3 (09:31→21:02)
[2022-01-08] MEDS ORDERED: Acetaminophen IV 1,000 MG/100 ML BAG IVPB ONE ×2 (09:36→10:05)
[2022-01-08] MEDS ORDERED: *HR* HYDROmorphone PF 0.5 MG/0.5 ML SYRINGE IVP PRN (09:51)
[2022-01-08] MEDS ORDERED: Albuterol 2.5 MG/3 ML NEBULIZER IH PRN (09:51)
[2022-01-08] MEDS ORDERED: Ondansetron 4 MG/2 ML VIAL IVP PRN (09:51)
[2022-01-08] MEDS ORDERED: *HR* FentaNYL (PF) 100 MCG/2 ML VIAL IVP PRN (09:51)
[2022-01-08] MEDS ORDERED: Scopolamine Patch 1.5 MG PATCH.TD72 TD ONE (10:05)
[2022-01-08] MEDS ORDERED: Famotidine 20 MG/2 ML VIAL ONE (10:08)
[2022-01-08] MEDS ORDERED: Metoclopramide 10 MG/2 ML VIAL ONE (12:30)
[2022-01-08] MEDS: Baclofen 10 MG TABLET PO SCH ×2 (13:24→21:03)
[2022-01-08] MEDS ORDERED: *HR* Heparin 5,000 UNIT/ML VIAL SQ SCH (14:00)
[2022-01-08] MEDS ORDERED: Promethazine 6.25 MG in Water for inj. (sterile) 20 ML IVPB PRN (14:29)
[2022-01-08] MEDS: *HR* HYDROcodone/Acet 5/325 mg TABLET PO PRN ×2 (14:49→21:02)
[2022-01-08] MEDS: Venlafaxine XR (24 HR) 150 MG CAP.ER.24H PO SCH (15:23)
[2022-01-08] MEDS: *HR* HYDROcodone/Acet 10/325 mg TABLET PO PRN (17:09)
[2022-01-08] MEDS: risperiDONE 1 MG TABLET PO SCH (21:02)
[2022-01-08] MEDS: Acetaminophen 325 MG TABLET PO PRN (21:03)
[2022-01-09] MEDS: Insulin LISPRO 300 UNITS/3 ML VIAL SUBQ SCH ×4 (00:01→17:28)
[2022-01-09] MEDS: *HR* HYDROcodone/Acet 10/325 mg TABLET PO PRN ×3 (00:04→15:41)
[2022-01-09] MEDS: Vancomycin 1,750 MG/517.5 ML IV.SOLN IVPB SCH ×2 (00:04→23:28)
[2022-01-09] MEDS: Cefepime HCl 2,000 MG in 0.9 % Sodium Chloride 10 ML IVP SCH ×3 (01:56→17:27)
[2022-01-09 03:56] LABS: Basophils % 0.6 %; Eosinophils % 0.5 %; Hematocrit 29.5 % (35.3-44.9); Immature Granulocytes % 0.9 % (0-4); Lymphocytes # 1.2 K/mcL (0.6-4.6); Lymphocytes % 18.4 %; Mean Corpuscular HGB Conc 30.8 g/dL (31.6-35.5); Mean Corpuscular Hemoglobin 28.1 pg (28.0-33.3); Mean Platelet Volume 10.3 fL (9.4-12.4); Monocytes # 0.3 K/mcL (0.0-1.3); Monocytes % 4.9 %; Neutrophils # 4.9 K/mcL (1.6-8.9); Platelet Count 244 K/mcL (140-400); Red Blood Count 3.24 M/mcL (3.82-4.97); Red Cell Distribution Width 14.8 % (11.5-14.5); Segmented Neutrophils % 74.7 %
[2022-01-09 04:04] LABS: Hemoglobin 9.1 g/dL (11.5-15.4); White Blood Count 6.6 K/mcL (4.3-11.1)
[2022-01-09 04:12] LABS: BUN/Creatinine Ratio 18 (6-26); Blood Urea Nitrogen 12 mg/dL (6-20); Calcium 7.9 mg/dL (8.6-10.3); Carbon Dioxide 21 mEq/L (23-29); Chloride 111 mEq/L (98-107); Glucose 146 mg/dL (70-105); Magnesium 1.6 mg/dL (1.6-2.6); Osmolality,Calculated 288 (280-300); Phosphorous 2.7 mg/dL (2.7-4.5); Potassium 4.3 mEq/L (3.5-5.1); Sodium 138 mEq/L (136-145); eGFR For African Americans > 60 (> 60); eGFR For Non-African Americans > 60 (> 60)
[2022-01-09] MEDS: *HR* HYDROcodone/Acet 5/325 mg TABLET PO PRN ×3 (06:19→18:19)
[2022-01-09] MEDS: Ondansetron ODT 4 MG TAB.RAPDIS SL PRN (06:19)
[2022-01-09] MEDS: Gabapentin 100 MG CAPSULE PO SCH ×3 (09:37→20:01)
[2022-01-09] MEDS: Venlafaxine XR (24 HR) 150 MG CAP.ER.24H PO SCH (09:37)
[2022-01-09] MEDS: Baclofen 10 MG TABLET PO SCH ×2 (09:37→20:00)
[2022-01-09] MEDS: metroNIDAZOLE 500 MG TABLET PO SCH ×3 (09:37→20:01)
[2022-01-09] MEDS: Acetaminophen 325 MG TABLET PO PRN (11:53)
[2022-01-09] MEDS: risperiDONE 1 MG TABLET PO SCH (20:00)
[2022-01-09] MEDS: Simethicone 80 MG TAB.CHEW PO PRN (21:35)
[2022-01-09] MEDS ORDERED: *HR* OxyCODONE Immed Rel 5 MG TABLET PO ONE (22:25)
[2022-01-10] MEDS: Insulin LISPRO 300 UNITS/3 ML VIAL SUBQ SCH ×4 (01:57→17:16)
[2022-01-10] MEDS: Acetaminophen 325 MG TABLET PO PRN (02:03)
[2022-01-10] MEDS: Cefepime HCl 2,000 MG in 0.9 % Sodium Chloride 10 ML IVP SCH ×3 (02:10→16:46)
[2022-01-10 02:21] LABS: Basophils % 0.3 %; Eosinophils # 0.1 K/mcL (0.0-0.6); Eosinophils % 1.5 %; Hematocrit 28.1 % (35.3-44.9); Hemoglobin 8.7 g/dL (11.5-15.4); Immature Granulocytes % 0.9 % (0-4); Lymphocytes # 1.1 K/mcL (0.6-4.6); Lymphocytes % 16.1 %; Mean Corpuscular Volume 93.7 fL (83.0-100.0); Mean Platelet Volume 10.4 fL (9.4-12.4); Monocytes # 0.3 K/mcL (0.0-1.3); Monocytes % 3.9 %; Neutrophils # 5.1 K/mcL (1.6-8.9); Platelet Count 204 K/mcL (140-400); Red Cell Distribution Width 14.6 % (11.5-14.5); Segmented Neutrophils % 77.3 %; White Blood Count 6.7 K/mcL (4.3-11.1)
[2022-01-10 02:39] LABS: BUN/Creatinine Ratio 12 (6-26); Blood Urea Nitrogen 9 mg/dL (6-20); Calcium 7.8 mg/dL (8.6-10.3); Carbon Dioxide 20 mEq/L (23-29); Chloride 111 mEq/L (98-107); Glucose 182 mg/dL (70-105); Magnesium 1.3 mg/dL (1.6-2.6); Osmolality,Calculated 289 (280-300); Sodium 138 mEq/L (136-145); eGFR For African Americans > 60 (> 60); eGFR For Non-African Americans > 60 (> 60)
[2022-01-10] MEDS: *HR* HYDROcodone/Acet 10/325 mg TABLET PO PRN ×3 (04:12→16:45)
[2022-01-10] MEDS: Gabapentin 100 MG CAPSULE PO SCH ×3 (07:54→20:14)
[2022-01-10] MEDS: metroNIDAZOLE 500 MG TABLET PO SCH ×3 (07:54→21:48)
[2022-01-10] MEDS: Baclofen 10 MG TABLET PO SCH ×2 (07:54→20:14)
[2022-01-10] MEDS: Venlafaxine XR (24 HR) 150 MG CAP.ER.24H PO SCH (07:54)
[2022-01-10] MEDS: Simethicone 80 MG TAB.CHEW PO PRN (17:15)
[2022-01-10] MEDS: *HR* HYDROcodone/Acet 5/325 mg TABLET PO PRN (20:13)
[2022-01-10] MEDS: risperiDONE 1 MG TABLET PO SCH (20:13)
[2022-01-10] MEDS: Loratadine 10 MG TABLET PO SCH (20:34)
[2022-01-10] MEDS ORDERED: *HR* OxyCODONE Immed Rel 5 MG TABLET PO ONE (22:04)
[2022-01-11] MEDS: Insulin LISPRO 300 UNITS/3 ML VIAL SUBQ SCH ×5 (00:32→23:59)
[2022-01-11] MEDS: Vancomycin 1,250 MG/262.5 ML IV.SOLN IVPB SCH ×2 (02:49→15:13)
[2022-01-11] MEDS: Cefepime HCl 2,000 MG in 0.9 % Sodium Chloride 10 ML IVP SCH ×3 (02:49→18:10)
[2022-01-11] MEDS: *HR* HYDROcodone/Acet 10/325 mg TABLET PO PRN ×2 (02:52→10:13)
[2022-01-11] MEDS: Simethicone 80 MG TAB.CHEW PO PRN ×3 (02:52→20:38)
[2022-01-11 05:33] LABS: Basophils % 0.7 %; Eosinophils # 0.1 K/mcL (0.0-0.6); Eosinophils % 1.8 %; Hematocrit 27.6 % (35.3-44.9); Hemoglobin 8.4 g/dL (11.5-15.4); Immature Granulocytes % 1.1 % (0-4); Lymphocytes # 0.9 K/mcL (0.6-4.6); Lymphocytes % 15.5 %; Mean Corpuscular HGB Conc 30.4 g/dL (31.6-35.5); Mean Corpuscular Hemoglobin 28.5 pg (28.0-33.3); Mean Corpuscular Volume 93.6 fL (83.0-100.0); Mean Platelet Volume 10.4 fL (9.4-12.4); Monocytes # 0.2 K/mcL (0.0-1.3); Monocytes % 4.3 %; Neutrophils # 4.3 K/mcL (1.6-8.9); Platelet Count 184 K/mcL (140-400); Red Blood Count 2.95 M/mcL (3.82-4.97); Red Cell Distribution Width 14.4 % (11.5-14.5); Segmented Neutrophils % 76.6 %; White Blood Count 5.6 K/mcL (4.3-11.1)
[2022-01-11 05:52] LABS: BUN/Creatinine Ratio 14 (6-26); Blood Urea Nitrogen 10 mg/dL (6-20); Calcium 8.1 mg/dL (8.6-10.3); Carbon Dioxide 21 mEq/L (23-29); Chloride 110 mEq/L (98-107); Glucose 205 mg/dL (70-105); Osmolality,Calculated 291 (280-300); Potassium 4.7 mEq/L (3.5-5.1); Sodium 138 mEq/L (136-145); eGFR For African Americans > 60 (> 60); eGFR For Non-African Americans > 60 (> 60)
[2022-01-11] MEDS: *HR* HYDROcodone/Acet 5/325 mg TABLET PO PRN (05:59)
[2022-01-11] MEDS: Loratadine 10 MG TABLET PO SCH (08:45)
[2022-01-11] MEDS: Venlafaxine XR (24 HR) 150 MG CAP.ER.24H PO SCH (08:45)
[2022-01-11] MEDS: Gabapentin 100 MG CAPSULE PO SCH ×4 (08:46→20:39)
[2022-01-11] MEDS: Baclofen 10 MG TABLET PO SCH ×3 (08:46→20:38)
[2022-01-11] MEDS: Acetaminophen 325 MG TABLET PO PRN ×2 (08:46→20:39)
[2022-01-11] MEDS: metroNIDAZOLE 500 MG TABLET PO SCH ×4 (08:47→20:39)
[2022-01-11] MEDS ORDERED: *HR* HYDROmorphone 2 MG/ML SYRINGE IVP ONE (14:16)
[2022-01-11] MEDS: *HR* OxyCODONE Immed Rel 5 MG TABLET PO PRN (18:09)
[2022-01-11] MEDS: Melatonin 3 MG TABLET PO PRN (20:39)
[2022-01-11] MEDS: Ondansetron 4 MG/2 ML VIAL IVP PRN (20:39)
[2022-01-11] MEDS: risperiDONE 1 MG TABLET PO SCH (20:39)
[2022-01-11] MEDS: *HR* OxyCODONE Immed Rel 15 MG TABLET PO PRN (22:07)
[2022-01-12] MEDS ORDERED: MOM Conc 10 ML UD.LIQ PO PRN (01:29)
[2022-01-12] MEDS: Vancomycin 1,250 MG/262.5 ML IV.SOLN IVPB SCH (02:45)
[2022-01-12] MEDS: Cefepime HCl 2,000 MG in 0.9 % Sodium Chloride 10 ML IVP SCH ×3 (02:46→17:36)
[2022-01-12] MEDS: *HR* OxyCODONE Immed Rel 5 MG TABLET PO PRN ×3 (04:30→19:50)
[2022-01-12] MEDS: Insulin LISPRO 300 UNITS/3 ML VIAL SUBQ SCH ×3 (05:59→17:36)
[2022-01-12 06:56] LABS: Basophils % 0.5 %; Eosinophils # 0.1 K/mcL (0.0-0.6); Eosinophils % 1.5 %; Hematocrit 28.1 % (35.3-44.9); Hemoglobin 8.6 g/dL (11.5-15.4); Immature Granulocytes % 0.9 % (0-4); Lymphocytes % 17.4 %; Mean Corpuscular HGB Conc 30.6 g/dL (31.6-35.5); Mean Corpuscular Hemoglobin 28.4 pg (28.0-33.3); Mean Corpuscular Volume 92.7 fL (83.0-100.0); Mean Platelet Volume 11.2 fL (9.4-12.4); Monocytes # 0.3 K/mcL (0.0-1.3); Monocytes % 4.8 %; Neutrophils # 4.1 K/mcL (1.6-8.9); Platelet Count 184 K/mcL (140-400); Red Blood Count 3.03 M/mcL (3.82-4.97); Red Cell Distribution Width 14.4 % (11.5-14.5); Segmented Neutrophils % 74.9 %; White Blood Count 5.5 K/mcL (4.3-11.1)
[2022-01-12 07:18] LABS: Magnesium 1.3 mg/dL (1.6-2.6); Phosphorous 3.1 mg/dL (2.7-4.5)
[2022-01-12 07:20] LABS: BUN/Creatinine Ratio 15 (6-26); Blood Urea Nitrogen 10 mg/dL (6-20); Calcium 8.3 mg/dL (8.6-10.3); Carbon Dioxide 20 mEq/L (23-29); Chloride 110 mEq/L (98-107); Glucose 207 mg/dL (70-105); Osmolality,Calculated 293 (280-300); Potassium 4.3 mEq/L (3.5-5.1); Sodium 139 mEq/L (136-145)
[2022-01-12] MEDS ORDERED: Pantoprazole 40 MG VIAL IVP SCH (09:00)
[2022-01-12] MEDS: *HR* OxyCODONE Immed Rel 15 MG TABLET PO PRN (09:20)
[2022-01-12] MEDS: Venlafaxine XR (24 HR) 75 MG CAP.ER.24H PO SCH (09:21)
[2022-01-12] MEDS: Baclofen 10 MG TABLET PO SCH ×2 (09:22→20:36)
[2022-01-12] MEDS: Loratadine 10 MG TABLET PO SCH (09:23)
[2022-01-12] MEDS: Gabapentin 100 MG CAPSULE PO SCH (09:24)
[2022-01-12] MEDS: metroNIDAZOLE 500 MG TABLET PO SCH ×3 (09:34→20:36)
[2022-01-12] MEDS: Gabapentin 300 MG CAPSULE PO SCH ×2 (14:31→20:36)
[2022-01-12] MEDS: DAPTOmycin 700 MG in 0.9 % Sodium Chloride 100 ML IVPB SCH (14:31)
[2022-01-12] MEDS: Melatonin 3 MG TABLET PO PRN (20:36)
[2022-01-12] MEDS: risperiDONE 1 MG TABLET PO SCH (20:36)
[2022-01-12] MEDS ORDERED: clonazePAM 0.5 MG TABLET PO ONE (21:12)
[2022-01-12] MEDS: Acetaminophen 325 MG TABLET PO PRN (21:41)
[2022-01-13 00:58] LABS: Basophils % 0.7 %; Eosinophils # 0.1 K/mcL (0.0-0.6); Eosinophils % 1.7 %; Hematocrit 28.3 % (35.3-44.9); Hemoglobin 8.7 g/dL (11.5-15.4); Immature Granulocytes % 0.9 % (0-4); Lymphocytes # 1.2 K/mcL (0.6-4.6); Lymphocytes % 20.8 %; Mean Corpuscular HGB Conc 30.7 g/dL (31.6-35.5); Mean Corpuscular Hemoglobin 28.5 pg (28.0-33.3); Mean Corpuscular Volume 92.8 fL (83.0-100.0); Mean Platelet Volume 11.1 fL (9.4-12.4); Monocytes # 0.3 K/mcL (0.0-1.3); Monocytes % 5.2 %; Neutrophils # 4.1 K/mcL (1.6-8.9); Platelet Count 174 K/mcL (140-400); Red Blood Count 3.05 M/mcL (3.82-4.97); Red Cell Distribution Width 14.4 % (11.5-14.5); Segmented Neutrophils % 70.7 %; White Blood Count 5.8 K/mcL (4.3-11.1)
[2022-01-13 01:17] LABS: BUN/Creatinine Ratio 16 (6-26); Blood Urea Nitrogen 11 mg/dL (6-20); Carbon Dioxide 19 mEq/L (23-29); Chloride 110 mEq/L (98-107); Glucose 263 mg/dL (70-105); Magnesium 1.5 mg/dL (1.6-2.6); Osmolality,Calculated 291 (280-300); Phosphorous 2.8 mg/dL (2.7-4.5); Potassium 4.6 mEq/L (3.5-5.1); Sodium 136 mEq/L (136-145)
[2022-01-13] MEDS: *HR* OxyCODONE Immed Rel 5 MG TABLET PO PRN ×5 (02:13→21:41)
[2022-01-13] MEDS: Insulin LISPRO 300 UNITS/3 ML VIAL SUBQ SCH ×4 (02:16→17:08)
[2022-01-13] MEDS: Cefepime HCl 2,000 MG in 0.9 % Sodium Chloride 10 ML IVP SCH ×2 (02:16→08:54)
[2022-01-13] MEDS: Venlafaxine XR (24 HR) 75 MG CAP.ER.24H PO SCH (08:53)
[2022-01-13] MEDS: metroNIDAZOLE 500 MG TABLET PO SCH (08:53)
[2022-01-13] MEDS: Baclofen 10 MG TABLET PO SCH ×2 (08:54→21:41)
[2022-01-13] MEDS: Loratadine 10 MG TABLET PO SCH (08:54)
[2022-01-13] MEDS: Gabapentin 300 MG CAPSULE PO SCH ×3 (08:54→21:42)
[2022-01-13] MEDS: DAPTOmycin 700 MG in 0.9 % Sodium Chloride 100 ML IVPB SCH (12:56)
[2022-01-13] MEDS: Ertapenem 1,000 MG in 0.9 % Sodium Chloride Mini Bag 100 ML IVPB SCH (12:57)
[2022-01-13] MEDS: Acetaminophen 325 MG TABLET PO PRN ×2 (13:05→21:40)
[2022-01-13] MEDS: risperiDONE 1 MG TABLET PO SCH (21:42)
[2022-01-13] MEDS: Insulin DETEMIR 100 UNIT/ML X5UNITS SUBQ SCH (21:43)
[2022-01-14] MEDS: *HR* OxyCODONE Immed Rel 5 MG TABLET PO PRN ×6 (00:03→23:58)
[2022-01-14] MEDS: Insulin LISPRO 300 UNITS/3 ML VIAL SUBQ SCH ×4 (01:29→17:33)
[2022-01-14 03:26] LABS: Basophils # 0.1 K/mcL (0.0-0.2); Eosinophils # 0.1 K/mcL (0.0-0.6); Eosinophils % 1.8 %; Hematocrit 30.6 % (35.3-44.9); Hemoglobin 9.3 g/dL (11.5-15.4); Lymphocytes # 1.4 K/mcL (0.6-4.6); Lymphocytes % 23.2 %; Mean Corpuscular HGB Conc 30.4 g/dL (31.6-35.5); Mean Corpuscular Hemoglobin 28.1 pg (28.0-33.3); Mean Corpuscular Volume 92.4 fL (83.0-100.0); Mean Platelet Volume 11.3 fL (9.4-12.4); Monocytes # 0.3 K/mcL (0.0-1.3); Monocytes % 5.1 %; Neutrophils # 4.1 K/mcL (1.6-8.9); Platelet Count 200 K/mcL (140-400); Red Blood Count 3.31 M/mcL (3.82-4.97); Red Cell Distribution Width 14.4 % (11.5-14.5); Segmented Neutrophils % 67.9 %; White Blood Count 6.1 K/mcL (4.3-11.1)
[2022-01-14 03:53] LABS: BUN/Creatinine Ratio 14 (6-26); Blood Urea Nitrogen 10 mg/dL (6-20); Calcium 8.5 mg/dL (8.6-10.3); Carbon Dioxide 21 mEq/L (23-29); Chloride 107 mEq/L (98-107); Glucose 247 mg/dL (70-105); Osmolality,Calculated 291 (280-300); Potassium 4.3 mEq/L (3.5-5.1); Sodium 137 mEq/L (136-145)
[2022-01-14] MEDS: Acetaminophen 325 MG TABLET PO PRN (04:58)
[2022-01-14 08:47] LABS: Magnesium 1.4 mg/dL (1.6-2.6)
[2022-01-14] MEDS: Loratadine 10 MG TABLET PO SCH (09:07)
[2022-01-14] MEDS: Gabapentin 300 MG CAPSULE PO SCH ×3 (09:07→20:49)
[2022-01-14] MEDS: Baclofen 10 MG TABLET PO SCH ×2 (09:08→20:50)
[2022-01-14] MEDS: Venlafaxine XR (24 HR) 75 MG CAP.ER.24H PO SCH (09:08)
[2022-01-14] MEDS ORDERED: Ketorolac 30 MG/ML VIAL IVP ONE (14:19)
[2022-01-14] MEDS: DAPTOmycin 700 MG in 0.9 % Sodium Chloride 100 ML IVPB SCH (14:29)
[2022-01-14] MEDS: *HR* Heparin 5,000 UNIT/ML VIAL SQ SCH ×2 (14:41→20:52)
[2022-01-14] MEDS: Ertapenem 1,000 MG in 0.9 % Sodium Chloride Mini Bag 100 ML IVPB SCH (15:53)
[2022-01-14] MEDS: Insulin DETEMIR 100 UNIT/ML X5UNITS SUBQ SCH (20:49)
[2022-01-14] MEDS: clonazePAM 0.5 MG TABLET PO PRN (20:50)
[2022-01-14] MEDS: Melatonin 3 MG TABLET PO PRN (20:50)
[2022-01-14] MEDS: risperiDONE 1 MG TABLET PO SCH (20:50)
[2022-01-15] MEDS: Insulin LISPRO 300 UNITS/3 ML VIAL SUBQ SCH ×5 (00:47→23:29)
[2022-01-15 03:17] LABS: Basophils # 0.1 K/mcL (0.0-0.2); Basophils % 0.7 %; Eosinophils # 0.2 K/mcL (0.0-0.6); Eosinophils % 2.1 %; Hematocrit 30.5 % (35.3-44.9); Hemoglobin 9.3 g/dL (11.5-15.4); Immature Granulocytes % 0.9 % (0-4); Lymphocytes # 1.8 K/mcL (0.6-4.6); Lymphocytes % 25.9 %; Mean Corpuscular HGB Conc 30.5 g/dL (31.6-35.5); Mean Corpuscular Hemoglobin 28.2 pg (28.0-33.3); Mean Corpuscular Volume 92.4 fL (83.0-100.0); Mean Platelet Volume 11.3 fL (9.4-12.4); Monocytes # 0.4 K/mcL (0.0-1.3); Monocytes % 5.2 %; Neutrophils # 4.6 K/mcL (1.6-8.9); Platelet Count 211 K/mcL (140-400); Red Cell Distribution Width 14.4 % (11.5-14.5); Segmented Neutrophils % 65.2 %
[2022-01-15] MEDS: *HR* OxyCODONE Immed Rel 5 MG TABLET PO PRN ×7 (03:26→21:42)
[2022-01-15] MEDS: Acetaminophen 325 MG TABLET PO PRN ×2 (03:26→08:34)
[2022-01-15 03:38] LABS: BUN/Creatinine Ratio 18 (6-26); Blood Urea Nitrogen 14 mg/dL (6-20); Calcium 8.5 mg/dL (8.6-10.3); Carbon Dioxide 23 mEq/L (23-29); Chloride 107 mEq/L (98-107); Glucose 184 mg/dL (70-105); Magnesium 1.6 mg/dL (1.6-2.6); Osmolality,Calculated 285 (280-300); Potassium 4.7 mEq/L (3.5-5.1); Sodium 135 mEq/L (136-145)
[2022-01-15] MEDS: *HR* Heparin 5,000 UNIT/ML VIAL SQ SCH ×3 (05:24→23:24)
[2022-01-15] MEDS ORDERED: Magnesium Sulfate 1 GM/102 ML PIGGYBACK IVPB ONE (08:13)
[2022-01-15] MEDS: Simethicone 80 MG TAB.CHEW PO PRN ×2 (08:35→21:32)
[2022-01-15] MEDS: Loratadine 10 MG TABLET PO SCH (08:36)
[2022-01-15] MEDS: Gabapentin 300 MG CAPSULE PO SCH ×3 (08:36→21:31)
[2022-01-15] MEDS: Baclofen 10 MG TABLET PO SCH ×2 (08:36→21:31)
[2022-01-15] MEDS: Venlafaxine XR (24 HR) 75 MG CAP.ER.24H PO SCH (08:36)
[2022-01-15] MEDS: Ertapenem 1,000 MG in 0.9 % Sodium Chloride Mini Bag 100 ML IVPB SCH (13:11)
[2022-01-15] MEDS: DAPTOmycin 700 MG in 0.9 % Sodium Chloride 100 ML IVPB SCH (14:46)
[2022-01-15] MEDS: clonazePAM 0.5 MG TABLET PO PRN (21:31)
[2022-01-15] MEDS: Melatonin 3 MG TABLET PO PRN (21:31)
[2022-01-15] MEDS: risperiDONE 1 MG TABLET PO SCH (21:32)
[2022-01-15] MEDS: Ondansetron 4 MG/2 ML VIAL IVP PRN (21:33)
[2022-01-15] MEDS: Insulin DETEMIR 100 UNIT/ML X5UNITS SUBQ SCH (22:00)
[2022-01-16] MEDS: *HR* OxyCODONE Immed Rel 5 MG TABLET PO PRN ×4 (02:44→18:39)
[2022-01-16] MEDS: *HR* Heparin 5,000 UNIT/ML VIAL SQ SCH ×3 (05:49→23:44)
[2022-01-16] MEDS: Insulin LISPRO 300 UNITS/3 ML VIAL SUBQ SCH ×3 (05:56→18:40)
[2022-01-16] MEDS: Loratadine 10 MG TABLET PO SCH (11:06)
[2022-01-16] MEDS: Baclofen 10 MG TABLET PO SCH ×2 (11:07→23:44)
[2022-01-16] MEDS: Gabapentin 300 MG CAPSULE PO SCH ×3 (11:07→23:44)
[2022-01-16] MEDS: Venlafaxine XR (24 HR) 75 MG CAP.ER.24H PO SCH (11:07)
[2022-01-16] MEDS: Simethicone 80 MG TAB.CHEW PO PRN ×2 (11:07→23:44)
[2022-01-16] MEDS: DAPTOmycin 700 MG in 0.9 % Sodium Chloride 100 ML IVPB SCH (15:58)
[2022-01-16] MEDS: Ertapenem 1,000 MG in 0.9 % Sodium Chloride Mini Bag 100 ML IVPB SCH (15:59)
[2022-01-16] MEDS ORDERED: Insulin DETEMIR 100 UNIT/ML X5UNITS SUBQ SCH (21:00)
[2022-01-16] MEDS: Acetaminophen 325 MG TABLET PO PRN (23:43)
[2022-01-16] MEDS: Melatonin 3 MG TABLET PO PRN (23:44)
[2022-01-16] MEDS: clonazePAM 0.5 MG TABLET PO PRN (23:44)
[2022-01-16] MEDS: risperiDONE 1 MG TABLET PO SCH (23:49)
[2022-01-17] MEDS: Insulin LISPRO 300 UNITS/3 ML VIAL SUBQ SCH ×2 (00:09→06:50)
[2022-01-17] MEDS: *HR* OxyCODONE Immed Rel 5 MG TABLET PO PRN ×3 (01:54→16:09)
[2022-01-17 06:00] VITALS: BP 121/63; PULSE 95; TEMP 97.8; O2SAT 95
[2022-01-17] MEDS: *HR* Heparin 5,000 UNIT/ML VIAL SQ SCH ×2 (06:09→15:57)
[2022-01-17 06:34] LABS: Hematocrit 30.4 % (35.3-44.9); Hemoglobin 9.2 g/dL (11.5-15.4); Mean Corpuscular HGB Conc 30.3 g/dL (31.6-35.5); Mean Corpuscular Hemoglobin 28.4 pg (28.0-33.3); Mean Corpuscular Volume 93.8 fL (83.0-100.0); Mean Platelet Volume 11.4 fL (9.4-12.4); Platelet Count 214 K/mcL (140-400); Red Blood Count 3.24 M/mcL (3.82-4.97); Red Cell Distribution Width 14.8 % (11.5-14.5); White Blood Count 7.4 K/mcL (4.3-11.1)
[2022-01-17 06:51] LABS: Calcium 9.1 mg/dL (8.6-10.3); Magnesium 1.5 mg/dL (1.6-2.6)
[2022-01-17] MEDS: Gabapentin 300 MG CAPSULE PO SCH ×2 (08:33→16:09)
[2022-01-17] MEDS: Venlafaxine XR (24 HR) 75 MG CAP.ER.24H PO SCH (08:33)
[2022-01-17] MEDS: Loratadine 10 MG TABLET PO SCH (08:33)
[2022-01-17] MEDS: Baclofen 10 MG TABLET PO SCH (08:34)
[2022-01-17] MEDS ORDERED: Insulin LISPRO 300 UNITS/3 ML VIAL SUBQ SCH (09:42)
[2022-01-17] MEDS: Ertapenem 1,000 MG in 0.9 % Sodium Chloride Mini Bag 100 ML IVPB SCH (13:30)
[2022-01-17] MEDS: DAPTOmycin 700 MG in 0.9 % Sodium Chloride 100 ML IVPB SCH (13:38)
[2022-01-17] MEDS ORDERED: Insulin DETEMIR 100 UNIT/ML X5UNITS SUBQ SCH (21:00)
== END 2022-01-17 17:36 | disposition home health service (06) | DRG 570 ==
LOC: 2NNU 17:32 → EMEROOARM 17:32 → SUATTDRO 23:11 → 2NENU 23:25 → SUATTDRO 01-04 14:50
PROVIDERS: ADMIT Student in an Organized Health Care Education/Training Program; ATTEND Internal Medicine

== ENCOUNTER 2022-01-21 17:09 | Inpatient (IN) ==
[2022-01-21 19:10] LABS: Basophils % 0.9 %; Mean Platelet Volume 11.5 fL (9.4-12.4)
[2022-01-21 19:12] LABS: Basophils # 0.1 K/mcL (0.0-0.2); Eosinophils # 0.2 K/mcL (0.0-0.6); Eosinophils % 2.5 %; Hematocrit 30.3 % (35.3-44.9); Immature Granulocytes % 1.6 % (0-4); Immature Platelets 6.6 % (1.1-6.1); Lymphocytes # 1.4 K/mcL (0.6-4.6); Lymphocytes % 21.5 %; Mean Corpuscular HGB Conc 29.7 g/dL (31.6-35.5); Mean Corpuscular Volume 94.4 fL (83.0-100.0); Monocytes # 0.4 K/mcL (0.0-1.3); Monocytes % 5.2 %; Neutrophils # 4.6 K/mcL (1.6-8.9); Nucleated Red Blood Cells 0.7 /100 WBC (0); Platelet Count 180 K/mcL (140-400); Red Blood Count 3.21 M/mcL (3.82-4.97); Red Cell Distribution Width 15.7 % (11.5-14.5); Segmented Neutrophils % 68.3 %; White Blood Count 6.7 K/mcL (4.3-11.1)
[2022-01-21 19:42] LABS: Troponin I < 0.03 ng/mL (< 0.04)
[2022-01-21 19:58] LABS: Alanine Aminotransferase 15 Units/L (7-52); Albumin 3.1 g/dL (3.5-5.7); Albumin/Globulin Ratio 1.1 (1.1-2.2); Alkaline Phosphatase 149 Units/L (34-104); Aspartate Amino Transferase 23 Units/L (13-39); BUN/Creatinine Ratio 17 (6-26); Bilirubin,Total 0.8 mg/dL (0.3-1.0); Blood Urea Nitrogen 34 mg/dL (6-20); Calcium 8.2 mg/dL (8.6-10.3); Carbon Dioxide 14 mEq/L (23-29); Chloride 103 mEq/L (98-107); Globulin 2.7 g/dL (2.4-3.5); Glucose 130 mg/dL (70-105); Osmolality,Calculated 275 (280-300); Potassium 6.8 mEq/L (3.5-5.1); Sodium 128 mEq/L (136-145); Total Protein 5.8 g/dL (6.4-8.9)
[2022-01-21] MEDS ORDERED: Insulin Human Regular 10 UNIT in 0.9 % Sodium Chloride 10 ML IV ONE (20:08)
[2022-01-21] MEDS ORDERED: *HR* Dextrose 50 % in Water (Vial) 50 ML VIAL IVP ONE ×2 (20:08→22:29)
[2022-01-21] MEDS ORDERED: SODIUM ZIRCONIUM CYCLOSILICATE 5 GM POWD.PACK PO ONE (20:10)
[2022-01-21] MEDS ORDERED: 0.9 % Sodium Chloride 1,000 ML IVC ONE (20:13)
[2022-01-21] MEDS: Calcium Gluconate 1gm/50mL 1 GM/50 ML BAG IVPB SCH ×2 (20:35→21:49)
[2022-01-21] MEDS ORDERED: Ringers Solution, Lactated 1,000 ML IVC ONE (21:00)
[2022-01-21] MEDS ORDERED: Sodium Bicarbonate 150 MEQ in Water for inj. (sterile) 1,000 ML IVC SCH (21:00)
[2022-01-21 21:27] LABS: ABG Base Excess -12 mEq/L (-2 to 3); ABG HCO3 15 mEq/L (21-27); ABG Oxygen Saturation 95 % (95-98); ABG PCO2 37 mmHg (35-45); ABG PH 7.22 pH Units (7.32-7.45); ABG PO2 89 mmHg (85-104); ABG TCO2 16 mEq/L (20-26)
[2022-01-21] MEDS: SODIUM ZIRCONIUM CYCLOSILICATE 5 GM POWD.PACK PO SCH (21:48)
[2022-01-21 23:24] LABS: Procalcitonin 9.3 ng/mL (0.00-0.15)
[2022-01-21 23:24] LABS: Acetaminophen < 10 mcg/mL (10-20); Amylase 44 Units/L (29-103); BUN/Creatinine Ratio 16 (6-26); Blood Urea Nitrogen 33 mg/dL (6-20); C-Reactive Protein 75 mg/L (Less than 10); Calcium 8.6 mg/dL (8.6-10.3); Carbon Dioxide 16 mEq/L (23-29); Chloride 105 mEq/L (98-107); Ethanol < 10 mg/dL (Less than 10); Glucose 68 mg/dL (70-105); Lipase 99 Units/L (11-82); Magnesium 1.6 mg/dL (1.6-2.6); Osmolality,Calculated 274 (280-300); Potassium 6.1 mEq/L (3.5-5.1); Salicylate < 2.5 mg/dL (15.0-30.0); Sodium 129 mEq/L (136-145)
[2022-01-21 23:31] LABS: Creatinine,Urine 208 mg/dL; Protein/Creatinine Ratio,Urine 0.29 mg/mg (0.00-0.20); Sodium, Urine < 10.0 mEq/L
[2022-01-21 23:32] LABS: Amphetamine Screen,Urine Negative ng/mL (Cutoff=1000); Barbiturate Screen,Urine Negative ng/mL (Cutoff=200); Benzodiazepines Screen,Urine Negative ng/mL (Cutoff=200); Cannabinoid Screen,Urine Negative ng/mL (Cutoff = 50); Cocaine Screen,Urine Negative ng/mL (Cutoff= 300); Opiate Screen,Urine Positive ng/mL (Cutoff=300); Phencyclidine Screen,Urine Negative ng/mL (Cutoff=25)
[2022-01-21 23:37] LABS: Thyroid Stimulating Hormone 2.104 mcIU/mL (0.340-5.600)
[2022-01-21 23:46] LABS: Amorphous Sediment,Urine Few per hpf (None-Few); Bilirubin,Urine Negative (Negative); Blood,Urine Negative (Negative); Budding Yeast,Urine Few per hpf (None Seen); Clarity,Urine Turbid (Clear); Color,Urine Yellow (Yellow); Glucose,Urine (UA) Normal (Normal); Hyaline Casts,Urine Many per lpf (None Seen); Ketones,Urine Negative (Negative); Leukocyte Esterase,Urine Moderate (Negative); Mucus,Urine Few per lpf (None-Few); Nitrite,Urine Negative (Negative); PH,Urine 5.5 pH Units (5.0-8.0); Protein,Urine 30 mg/dL (Neg-Trace); RBC,Urine 0-3 per hpf (0-3); Specific Gravity,Urine 1.021 (1.010-1.025); Squamous Epithelial Cell,Urine Moderate per hpf (None-Few); Urobilinogen,Urine Normal (Normal)
[2022-01-21] MEDS: Vancomycin 1,750 MG/517.5 ML IV.SOLN IVPB SCH (23:48)
[2022-01-22] MEDS ORDERED: D5% in Water 1,000 ML IVC PRN (00:13)
[2022-01-22] MEDS ORDERED: Dextrose Gel 15 GM/37.5 ML TUBE PO PRN ×2 (00:13)
[2022-01-22] MEDS ORDERED: *HR* Dextrose 50 % in Water (Syg) 50 ML SYRINGE IVP PRN (00:13)
[2022-01-22] MEDS: Cefepime HCl 2,000 MG in 0.9 % Sodium Chloride 10 ML IVP SCH ×3 (00:27→20:29)
[2022-01-22] MEDS ORDERED: Norepinephrine 4 MG/254 ML IV.SOLN IVC SCH (00:30)
[2022-01-22] MEDS: Sodium Bicarbonate 75 MEQ in 0.45 % Sodium Chloride 1,000 ML IVC SCH ×3 (00:48→20:24)
[2022-01-22] MEDS ORDERED: Ondansetron 4 MG/2 ML VIAL IVP PRN (01:06)
[2022-01-22] MEDS ORDERED: Acetaminophen 325 MG TABLET PO PRN (01:06)
[2022-01-22] MEDS ORDERED: Naloxone 0.4 MG/ML INJ IVP PRN (01:06)
[2022-01-22 04:08] LABS: ABG Base Excess -11 mEq/L (-2 to 3); ABG HCO3 16 mEq/L (21-27); ABG Oxygen Saturation 97 % (95-98); ABG PCO2 38 mmHg (35-45); ABG PH 7.23 pH Units (7.32-7.45); ABG PO2 109 mmHg (85-104); ABG TCO2 17 mEq/L (20-26)
[2022-01-22] MEDS: Insulin LISPRO 300 UNITS/3 ML VIAL SUBQ SCH ×6 (04:10→23:51)
[2022-01-22 04:13] LABS: Basophils # 0.1 K/mcL (0.0-0.2); Basophils % 0.8 %; Eosinophils # 0.2 K/mcL (0.0-0.6); Eosinophils % 2.5 %; Hematocrit 27.4 % (35.3-44.9); Hemoglobin 8.3 g/dL (11.5-15.4); Immature Granulocytes % 1.6 % (0-4); Lymphocytes # 1.2 K/mcL (0.6-4.6); Lymphocytes % 18.9 %; Mean Corpuscular HGB Conc 30.3 g/dL (31.6-35.5); Mean Corpuscular Hemoglobin 28.2 pg (28.0-33.3); Mean Corpuscular Volume 93.2 fL (83.0-100.0); Mean Platelet Volume 10.8 fL (9.4-12.4); Monocytes # 0.4 K/mcL (0.0-1.3); Monocytes % 6.7 %; Neutrophils # 4.5 K/mcL (1.6-8.9); Nucleated Red Blood Cells 0.3 /100 WBC (0); Platelet Count 177 K/mcL (140-400); Red Blood Count 2.94 M/mcL (3.82-4.97); Red Cell Distribution Width 15.8 % (11.5-14.5); Segmented Neutrophils % 69.5 %; White Blood Count 6.5 K/mcL (4.3-11.1)
[2022-01-22 04:20] LABS: Calcium 7.8 mg/dL (8.6-10.3); Magnesium 1.5 mg/dL (1.6-2.6); Phosphorous 6.9 mg/dL (2.7-4.5); Potassium 5.8 mEq/L (3.5-5.1)
[2022-01-22 04:23] LABS: BUN/Creatinine Ratio 17 (6-26); Blood Urea Nitrogen 34 mg/dL (6-20); Calcium 7.8 mg/dL (8.6-10.3); Carbon Dioxide 17 mEq/L (23-29); Chloride 106 mEq/L (98-107); Glucose 112 mg/dL (70-105); INR 1.3; Osmolality,Calculated 278 (280-300); Potassium 5.8 mEq/L (3.5-5.1); Sodium 130 mEq/L (136-145); Troponin I < 0.03 ng/mL (< 0.04)
[2022-01-22 04:26] LABS: Activated Partial Thrombo Time 27.8 Seconds (26.0-36.0)
[2022-01-22] MEDS: *HR* Heparin 5,000 UNIT/ML VIAL SQ SCH ×3 (05:52→20:29)
[2022-01-22] MEDS: Calcium Gluconate 1gm/50mL 1 GM/50 ML BAG IVPB SCH ×2 (05:52→06:13)
[2022-01-22] MEDS: MetroNIDAZOLE 500 MG/100 ML 500 MG/100 ML BAG IVPB SCH ×3 (08:30→23:51)
[2022-01-22] MEDS: SODIUM ZIRCONIUM CYCLOSILICATE 5 GM POWD.PACK PO SCH ×2 (08:32→14:47)
[2022-01-22] MEDS ORDERED: cefTRIAXone 2,000 MG in 0.9 % Sodium Chloride 20 ML IVP SCH (09:00)
[2022-01-22] MEDS ORDERED: 0.9 % Sodium Chloride 1,000 ML IVC ONE ×2 (10:42→10:44)
[2022-01-22] MEDS: Gabapentin 300 MG CAPSULE PO SCH (21:41)
[2022-01-22] MEDS: *HR* OxyCODONE Immed Rel 5 MG TABLET PO PRN (21:44)
[2022-01-22] MEDS: Vancomycin 1,750 MG/517.5 ML IV.SOLN IVPB SCH (22:14)
[2022-01-23] MEDS: Sodium Bicarbonate 75 MEQ in 0.45 % Sodium Chloride 1,000 ML IVC SCH ×2 (02:18→09:44)
[2022-01-23 02:36] LABS: Basophils % 0.6 %; Eosinophils # 0.1 K/mcL (0.0-0.6); Eosinophils % 2.2 %; Hematocrit 24.6 % (35.3-44.9); Hemoglobin 7.6 g/dL (11.5-15.4); Immature Granulocytes % 0.9 % (0-4); Lymphocytes # 0.7 K/mcL (0.6-4.6); Lymphocytes % 20.3 %; Mean Corpuscular HGB Conc 30.9 g/dL (31.6-35.5); Mean Corpuscular Hemoglobin 28.6 pg (28.0-33.3); Mean Corpuscular Volume 92.5 fL (83.0-100.0); Mean Platelet Volume 10.8 fL (9.4-12.4); Monocytes # 0.2 K/mcL (0.0-1.3); Monocytes % 6.2 %; Neutrophils # 2.3 K/mcL (1.6-8.9); Platelet Count 145 K/mcL (140-400); Red Blood Count 2.66 M/mcL (3.82-4.97); Red Cell Distribution Width 15.9 % (11.5-14.5); Segmented Neutrophils % 69.8 %; White Blood Count 3.3 K/mcL (4.3-11.1)
[2022-01-23 02:56] LABS: Calcium 7.5 mg/dL (8.6-10.3); Magnesium 1.7 mg/dL (1.6-2.6); Phosphorous 5.5 mg/dL (2.7-4.5); Potassium 4.8 mEq/L (3.5-5.1)
[2022-01-23] MEDS: *HR* OxyCODONE Immed Rel 5 MG TABLET PO PRN ×4 (03:52→22:13)
[2022-01-23] MEDS: Insulin LISPRO 300 UNITS/3 ML VIAL SUBQ SCH ×5 (03:54→20:13)
[2022-01-23] MEDS: *HR* Heparin 5,000 UNIT/ML VIAL SQ SCH ×3 (05:37→20:10)
[2022-01-23] MEDS ORDERED: Pantoprazole 40 MG VIAL IVP ONE (05:46)
[2022-01-23] MEDS ORDERED: GI Cocktail 40 ML EACH PO ONE (05:46)
[2022-01-23] MEDS: Calcium Gluconate 1gm/50mL 1 GM/50 ML BAG IVPB SCH ×2 (07:43→08:59)
[2022-01-23] MEDS: MetroNIDAZOLE 500 MG/100 ML 500 MG/100 ML BAG IVPB SCH ×3 (07:49→22:16)
[2022-01-23] MEDS: Cefepime HCl 2,000 MG in 0.9 % Sodium Chloride 10 ML IVP SCH ×2 (08:00→20:10)
[2022-01-23] MEDS: Gabapentin 300 MG CAPSULE PO SCH ×3 (08:00→20:09)
[2022-01-23] MEDS: clonazePAM 0.5 MG TABLET PO PRN (20:09)
[2022-01-23] MEDS: RisperiDAL 3 MG TABLET PO SCH (20:09)
[2022-01-23] MEDS: Topiramate 100 MG TABLET PO SCH (20:10)
[2022-01-23] MEDS: Vancomycin 1,750 MG/517.5 ML IV.SOLN IVPB SCH (22:15)
[2022-01-24] MEDS: Insulin LISPRO 300 UNITS/3 ML VIAL SUBQ SCH ×6 (00:22→21:17)
[2022-01-24] MEDS: *HR* Heparin 5,000 UNIT/ML VIAL SQ SCH ×3 (04:36→21:05)
[2022-01-24] MEDS: *HR* OxyCODONE Immed Rel 5 MG TABLET PO PRN ×3 (04:37→18:21)
[2022-01-24] MEDS: Pantoprazole 40 MG VIAL IVP SCH (04:37)
[2022-01-24 05:53] LABS: Eosinophils # 0.1 K/mcL (0.0-0.6); Eosinophils % 3.2 %; Hematocrit 22.9 % (35.3-44.9); Hemoglobin 7.1 g/dL (11.5-15.4); Lymphocytes # 0.8 K/mcL (0.6-4.6); Mean Corpuscular Hemoglobin 28.6 pg (28.0-33.3); Mean Corpuscular Volume 92.3 fL (83.0-100.0); Mean Platelet Volume 11.4 fL (9.4-12.4); Monocytes # 0.2 K/mcL (0.0-1.3); Monocytes % 6.4 %; Neutrophils # 1.9 K/mcL (1.6-8.9); Platelet Count 138 K/mcL (140-400); Red Blood Count 2.48 M/mcL (3.82-4.97); Red Cell Distribution Width 16.2 % (11.5-14.5); Segmented Neutrophils % 61.4 %; White Blood Count 3.1 K/mcL (4.3-11.1)
[2022-01-24 06:16] LABS: BUN/Creatinine Ratio 25 (6-26); Blood Urea Nitrogen 18 mg/dL (6-20); Calcium 7.6 mg/dL (8.6-10.3); Carbon Dioxide 24 mEq/L (23-29); Chloride 111 mEq/L (98-107); Glucose 110 mg/dL (70-105); Magnesium 1.4 mg/dL (1.6-2.6); Osmolality,Calculated 293 (280-300); Phosphorous 3.2 mg/dL (2.7-4.5); Potassium 5.1 mEq/L (3.5-5.1); Sodium 140 mEq/L (136-145)
[2022-01-24] MEDS: Cefepime HCl 2,000 MG in 0.9 % Sodium Chloride 10 ML IVP SCH ×2 (08:19→21:07)
[2022-01-24] MEDS: MetroNIDAZOLE 500 MG/100 ML 500 MG/100 ML BAG IVPB SCH ×3 (08:20→23:11)
[2022-01-24] MEDS: Gabapentin 300 MG CAPSULE PO SCH ×3 (08:21→21:06)
[2022-01-24] MEDS: Aspirin 81 MG TAB.CHEW PO SCH (08:21)
[2022-01-24] MEDS: Venlafaxine XR (24 HR) 75 MG CAP.ER.24H PO SCH (08:21)
[2022-01-24] MEDS: Topiramate 100 MG TABLET PO SCH ×2 (08:21→21:07)
[2022-01-24] MEDS: (Vilazodone Hcl [Viibryd] 20 MG Tablet) PO SCH (11:40)
[2022-01-24] MEDS ORDERED: Baclofen 10 MG TABLET PO PRN (15:23)
[2022-01-24] MEDS ORDERED: Iopamidol - 370 500 ML MLS IVP ONE (16:17)
[2022-01-24] MEDS: clonazePAM 0.5 MG TABLET PO PRN (21:06)
[2022-01-24] MEDS: RisperiDAL 3 MG TABLET PO SCH (21:06)
[2022-01-24] MEDS: Vancomycin 1,500 MG/265 ML IV.SOLN IVPB SCH (23:25)
[2022-01-25] MEDS: Insulin LISPRO 300 UNITS/3 ML VIAL SUBQ SCH ×6 (01:30→22:41)
[2022-01-25] MEDS: *HR* OxyCODONE Immed Rel 5 MG TABLET PO PRN ×4 (02:30→23:14)
[2022-01-25 03:04] LABS: Basophils % 0.6 %; Eosinophils # 0.2 K/mcL (0.0-0.6); Eosinophils % 5.5 %; Hematocrit 24.7 % (35.3-44.9); Hemoglobin 7.3 g/dL (11.5-15.4); Immature Granulocytes % 0.9 % (0-4); Lymphocytes # 0.8 K/mcL (0.6-4.6); Lymphocytes % 23.2 %; Mean Corpuscular HGB Conc 29.6 g/dL (31.6-35.5); Mean Corpuscular Hemoglobin 28.1 pg (28.0-33.3); Mean Platelet Volume 10.7 fL (9.4-12.4); Monocytes # 0.3 K/mcL (0.0-1.3); Platelet Count 133 K/mcL (140-400); Red Cell Distribution Width 15.9 % (11.5-14.5); Segmented Neutrophils % 61.8 %; White Blood Count 3.3 K/mcL (4.3-11.1)
[2022-01-25 03:29] LABS: BUN/Creatinine Ratio 21 (6-26); Blood Urea Nitrogen 15 mg/dL (6-20); Calcium 7.7 mg/dL (8.6-10.3); Carbon Dioxide 22 mEq/L (23-29); Chloride 110 mEq/L (98-107); Glucose 112 mg/dL (70-105); Magnesium 1.4 mg/dL (1.6-2.6); Osmolality,Calculated 286 (280-300); Phosphorous 3.5 mg/dL (2.7-4.5); Potassium 5.2 mEq/L (3.5-5.1); Sodium 137 mEq/L (136-145)
[2022-01-25] MEDS: *HR* Heparin 5,000 UNIT/ML VIAL SQ SCH ×3 (04:24→20:13)
[2022-01-25] MEDS: Pantoprazole 40 MG VIAL IVP SCH (04:24)
[2022-01-25] MEDS ORDERED: SODIUM ZIRCONIUM CYCLOSILICATE 5 GM POWD.PACK PO ONE (07:46)
[2022-01-25] MEDS: Cefepime HCl 2,000 MG in 0.9 % Sodium Chloride 10 ML IVP SCH ×2 (07:58→20:13)
[2022-01-25] MEDS: MetroNIDAZOLE 500 MG/100 ML 500 MG/100 ML BAG IVPB SCH ×3 (07:58→23:43)
[2022-01-25] MEDS: Venlafaxine XR (24 HR) 75 MG CAP.ER.24H PO SCH (08:10)
[2022-01-25] MEDS: Aspirin 81 MG TAB.CHEW PO SCH (08:10)
[2022-01-25] MEDS: Gabapentin 300 MG CAPSULE PO SCH ×3 (08:10→20:13)
[2022-01-25] MEDS: Loratadine 10 MG TABLET PO SCH (08:10)
[2022-01-25] MEDS: Topiramate 100 MG TABLET PO SCH ×2 (08:12→20:13)
[2022-01-25] MEDS: (Vilazodone Hcl [Viibryd] 20 MG Tablet) PO SCH (08:12)
[2022-01-25] MEDS: Vancomycin 1,750 MG/517.5 ML IV.SOLN IVPB SCH (10:14)
[2022-01-25] MEDS: Tiotropium 10 INH DOSE IH SCH (10:39)
[2022-01-25] MEDS: RisperiDAL 3 MG TABLET PO SCH (20:13)
[2022-01-25] MEDS: clonazePAM 0.5 MG TABLET PO PRN (20:13)
[2022-01-25] MEDS: Vancomycin 1,500 MG/265 ML IV.SOLN IVPB SCH (23:53)
[2022-01-26] MEDS: Insulin LISPRO 300 UNITS/3 ML VIAL SUBQ SCH ×4 (03:03→13:57)
[2022-01-26] MEDS: Pantoprazole 40 MG VIAL IVP SCH (05:25)
[2022-01-26] MEDS: *HR* Heparin 5,000 UNIT/ML VIAL SQ SCH (05:25)
[2022-01-26] MEDS: *HR* OxyCODONE Immed Rel 5 MG TABLET PO PRN ×2 (05:25→12:36)
[2022-01-26 06:05] LABS: Mean Platelet Volume 10.8 fL (9.4-12.4); Red Cell Distribution Width 15.4 % (11.5-14.5)
[2022-01-26 06:06] LABS: Basophils % 0.5 %; Eosinophils # 0.2 K/mcL (0.0-0.6); Eosinophils % 9.1 %; Hematocrit 24.4 % (35.3-44.9); Hemoglobin 7.3 g/dL (11.5-15.4); Immature Granulocytes % 1.8 % (0-4); Lymphocytes # 0.7 K/mcL (0.6-4.6); Lymphocytes % 31.5 %; Mean Corpuscular HGB Conc 29.9 g/dL (31.6-35.5); Mean Corpuscular Hemoglobin 28.7 pg (28.0-33.3); Mean Corpuscular Volume 96.1 fL (83.0-100.0); Monocytes # 0.2 K/mcL (0.0-1.3); Monocytes % 8.7 %; Neutrophils # 1.1 K/mcL (1.6-8.9); Platelet Count 127 K/mcL (140-400); Red Blood Count 2.54 M/mcL (3.82-4.97); Segmented Neutrophils % 48.4 %; White Blood Count 2.2 K/mcL (4.3-11.1)
[2022-01-26 06:31] LABS: Alanine Aminotransferase 5 Units/L (7-52); Albumin 2.5 g/dL (3.5-5.7); Albumin/Globulin Ratio 0.9 (1.1-2.2); Alkaline Phosphatase 89 Units/L (34-104); Aspartate Amino Transferase 8 Units/L (13-39); BUN/Creatinine Ratio 19 (6-26); Bilirubin,Total 0.4 mg/dL (0.3-1.0); Blood Urea Nitrogen 13 mg/dL (6-20); Calcium 7.9 mg/dL (8.6-10.3); Carbon Dioxide 23 mEq/L (23-29); Chloride 110 mEq/L (98-107); Globulin 2.7 g/dL (2.4-3.5); Glucose 100 mg/dL (70-105); Magnesium 1.6 mg/dL (1.6-2.6); Osmolality,Calculated 286 (280-300); Potassium 5.1 mEq/L (3.5-5.1); Sodium 138 mEq/L (136-145); Total Protein 5.2 g/dL (6.4-8.9)
[2022-01-26] MEDS: MetroNIDAZOLE 500 MG/100 ML 500 MG/100 ML BAG IVPB SCH ×2 (09:05→09:30)
[2022-01-26] MEDS: Aspirin 81 MG TAB.CHEW PO SCH (09:30)
[2022-01-26] MEDS: Loratadine 10 MG TABLET PO SCH (09:30)
[2022-01-26] MEDS: (Vilazodone Hcl [Viibryd] 20 MG Tablet) PO SCH (09:30)
[2022-01-26] MEDS: Gabapentin 300 MG CAPSULE PO SCH (09:30)
[2022-01-26] MEDS: Topiramate 100 MG TABLET PO SCH (09:30)
[2022-01-26] MEDS: Venlafaxine XR (24 HR) 75 MG CAP.ER.24H PO SCH (09:30)
[2022-01-26] MEDS: Tiotropium 10 INH DOSE IH SCH (10:32)
[2022-01-26 12:34] VITALS: BP 101/66; PULSE 86; TEMP 99.5; O2SAT 98
[2022-01-27] MEDS ORDERED: lisinopriL 5 MG TABLET PO SCH (09:00)
== END 2022-01-26 15:31 | disposition home health service (06) | DRG 871 ==
LOC: ICNU 17:09 → EMEROOARM 17:09 → ICNU 23:38 → 3ANU 01-25 16:24
PROVIDERS: ADMIT Internal Medicine; ATTEND Internal Medicine

== ENCOUNTER 2022-02-04 15:59 | Observation (INO) ==
[2022-02-04] MEDS ORDERED: 0.9 % Sodium Chloride 1,000 ML IVC ONE (17:14)
[2022-02-04 17:45] LABS: Basophils # 0.1 K/mcL (0.0-0.2); Basophils % 0.7 %; Eosinophils # 0.1 K/mcL (0.0-0.6); Eosinophils % 1.5 %; Hematocrit 35.2 % (35.3-44.9); Immature Granulocytes % 1.6 % (0-4); Lymphocytes # 1.5 K/mcL (0.6-4.6); Lymphocytes % 20.1 %; Mean Corpuscular HGB Conc 30.1 g/dL (31.6-35.5); Mean Corpuscular Hemoglobin 27.4 pg (28.0-33.3); Mean Platelet Volume 10.5 fL (9.4-12.4); Monocytes # 0.4 K/mcL (0.0-1.3); Monocytes % 5.5 %; Neutrophils # 5.4 K/mcL (1.6-8.9); Platelet Count 275 K/mcL (140-400); Red Blood Count 3.87 M/mcL (3.82-4.97); Red Cell Distribution Width 15.1 % (11.5-14.5); Segmented Neutrophils % 70.6 %
[2022-02-04 17:48] LABS: Hemoglobin 10.6 g/dL (11.5-15.4); White Blood Count 7.6 K/mcL (4.3-11.1)
[2022-02-04 17:59] LABS: INR 1.6
[2022-02-04] MEDS ORDERED: MetroNIDAZOLE 500 MG/100 ML 500 MG/100 ML BAG IVPB ONE (18:00)
[2022-02-04] MEDS ORDERED: Cefepime HCl 2,000 MG in 0.9 % Sodium Chloride 10 ML IVP ONE (18:00)
[2022-02-04] MEDS ORDERED: Vancomycin 1,500 MG/265 ML IV.SOLN IVPB ONE (18:00)
[2022-02-04 18:01] LABS: Activated Partial Thrombo Time 37.9 Seconds (26.0-36.0)
[2022-02-04 18:24] LABS: Alanine Aminotransferase 5 Units/L (7-52); Albumin 3.4 g/dL (3.5-5.7); Albumin/Globulin Ratio 0.9 (1.1-2.2); Alkaline Phosphatase 142 Units/L (34-104); Aspartate Amino Transferase 6 Units/L (13-39); BUN/Creatinine Ratio 14 (6-26); Bilirubin,Direct 0.1 mg/dL (0.0-0.2); Bilirubin,Indirect 0.4 mg/dL (0.0-1.0); Bilirubin,Total 0.5 mg/dL (0.3-1.0); Blood Urea Nitrogen 20 mg/dL (6-20); Calcium 8.7 mg/dL (8.6-10.3); Carbon Dioxide 10 mEq/L (23-29); Chloride 111 mEq/L (98-107); Globulin 3.6 g/dL (2.4-3.5); Glucose 140 mg/dL (70-105); Lipase 235 Units/L (11-82); Magnesium 1.4 mg/dL (1.6-2.6); Osmolality,Calculated 289 (280-300); Phosphorous 5.1 mg/dL (2.7-4.5); Potassium 4.6 mEq/L (3.5-5.1); Sodium 137 mEq/L (136-145); Troponin I < 0.03 ng/mL (< 0.04)
[2022-02-04 18:27] LABS: VBG HCO3 10 mEq/L (21-27); VBG PCO2 28 mmHg (41-51); VBG PH 7.16 pH Units (7.32-7.42); VBG PO2 48 mmHg (25-50)
[2022-02-04] MEDS ORDERED: Ondansetron 4 MG/2 ML VIAL IVP PRN (19:56)
[2022-02-04] MEDS ORDERED: Naloxone 0.4 MG/ML INJ IVP PRN (19:56)
[2022-02-04 22:30] LABS: C-Reactive Protein 121 mg/L (Less than 10); Salicylate < 2.5 mg/dL (15.0-30.0)
[2022-02-04] MEDS ORDERED: Sodium Bicarbonate 75 MEQ in 0.45 % Sodium Chloride 1,000 ML IVC SCH (22:30)
[2022-02-04] MEDS ORDERED: Sodium Bicarbonate 75 MEQ in D5% in Water 1,000 ML IVC SCH (23:00)
[2022-02-04 23:21] LABS: Thyroid Stimulating Hormone 1.516 mcIU/mL (0.340-5.600)
[2022-02-04] MEDS: MetroNIDAZOLE 500 MG/100 ML 500 MG/100 ML BAG IVPB SCH (23:22)
[2022-02-05] MEDS ORDERED: D5% in Water 1,000 ML IVC PRN (01:31)
[2022-02-05] MEDS ORDERED: *HR* Dextrose 50 % in Water (Syg) 50 ML SYRINGE IVP PRN (01:31)
[2022-02-05] MEDS ORDERED: Dextrose Gel 15 GM/37.5 ML TUBE PO PRN ×2 (01:31)
[2022-02-05 02:04] LABS: Bacteria,Urine Few per hpf (None-Few); Bilirubin,Urine Negative (Negative); Blood,Urine Moderate (Negative); Clarity,Urine Turbid (Clear); Color,Urine Yellow (Yellow); Glucose,Urine (UA) Normal (Normal); Hyaline Casts,Urine Many per lpf (None Seen); Ketones,Urine Negative (Negative); Leukocyte Esterase,Urine Large (Negative); Mucus,Urine Few per lpf (None-Few); Nitrite,Urine Negative (Negative); Protein,Urine 100 mg/dL (Neg-Trace); RBC,Urine TNTC per hpf (0-3); Renal Epithelial Cells,Urine Few per hpf (None-Few); Specific Gravity,Urine 1.019 (1.010-1.025); Squamous Epithelial Cell,Urine Few per hpf (None-Few); Transitional Epi Cells,Urine Few per hpf (None-Few); Urobilinogen,Urine Normal (Normal); WBC,Urine TNTC per hpf (0-3)
[2022-02-05 02:40] LABS: VBG HCO3 9 mEq/L (21-27); VBG PCO2 19 mmHg (41-51); VBG PH 7.26 pH Units (7.32-7.42); VBG PO2 163 mmHg (25-50)
[2022-02-05 02:46] LABS: Basophils % 0.7 %; Eosinophils # 0.1 K/mcL (0.0-0.6); Eosinophils % 1.8 %; Hematocrit 29.1 % (35.3-44.9); Immature Granulocytes % 1.5 % (0-4); Lymphocytes # 1.2 K/mcL (0.6-4.6); Lymphocytes % 21.9 %; Mean Corpuscular HGB Conc 30.2 g/dL (31.6-35.5); Mean Corpuscular Hemoglobin 27.3 pg (28.0-33.3); Mean Corpuscular Volume 90.4 fL (83.0-100.0); Mean Platelet Volume 10.6 fL (9.4-12.4); Monocytes # 0.3 K/mcL (0.0-1.3); Monocytes % 4.6 %; Neutrophils # 3.8 K/mcL (1.6-8.9); Platelet Count 260 K/mcL (140-400); Red Blood Count 3.22 M/mcL (3.82-4.97); Red Cell Distribution Width 15.3 % (11.5-14.5); Segmented Neutrophils % 69.5 %; White Blood Count 5.5 K/mcL (4.3-11.1)
[2022-02-05 03:04] LABS: INR 1.6; Prothrombin Time 17.6 Seconds (9.4-12.1)
[2022-02-05 03:08] LABS: Hemoglobin 8.8 g/dL (11.5-15.4)
[2022-02-05 03:09] LABS: Alanine Aminotransferase 4 Units/L (7-52); Albumin 2.9 g/dL (3.5-5.7); Alkaline Phosphatase 122 Units/L (34-104); Aspartate Amino Transferase 6 Units/L (13-39); BUN/Creatinine Ratio 23 (6-26); Bilirubin,Total 0.4 mg/dL (0.3-1.0); Blood Urea Nitrogen 19 mg/dL (6-20); Carbon Dioxide 8 mEq/L (23-29); Chloride 117 mEq/L (98-107); Glucose 142 mg/dL (70-105); Magnesium 1.6 mg/dL (1.6-2.6); Osmolality,Calculated 297 (280-300); Phosphorous 4.4 mg/dL (2.7-4.5); Sodium 141 mEq/L (136-145); Total Protein 5.9 g/dL (6.4-8.9)
[2022-02-05 03:12] LABS: Folate 10.3 ng/mL (3.0-16.0)
[2022-02-05 03:19] LABS: Calcium 7.8 mg/dL (8.6-10.3)
[2022-02-05 03:35] LABS: Amphetamine Screen,Urine Negative ng/mL (Cutoff=1000); Barbiturate Screen,Urine Negative ng/mL (Cutoff=200); Benzodiazepines Screen,Urine Negative ng/mL (Cutoff=200); Cannabinoid Screen,Urine Negative ng/mL (Cutoff = 50); Cocaine Screen,Urine Negative ng/mL (Cutoff= 300); Opiate Screen,Urine Negative ng/mL (Cutoff=300); Phencyclidine Screen,Urine Negative ng/mL (Cutoff=25); Potassium,Urine 27.9 mEq/L; Sodium, Urine 14.3 mEq/L
[2022-02-05] MEDS: *HR* Heparin 5,000 UNIT/ML VIAL SQ SCH ×3 (05:54→21:08)
[2022-02-05] MEDS ORDERED: Vancomycin 1,500 MG/265 ML IV.SOLN IVPB SCH (06:00)
[2022-02-05] MEDS ORDERED: Cefepime HCl 2,000 MG in 0.9 % Sodium Chloride 10 ML IVP SCH (06:00)
[2022-02-05 06:51] LABS: Creatine Kinase < 10 Units/L (30-223)
[2022-02-05 09:04] LABS: BUN/Creatinine Ratio 25 (6-26); Blood Urea Nitrogen 18 mg/dL (6-20); Calcium 8.2 mg/dL (8.6-10.3); Carbon Dioxide 12 mEq/L (23-29); Chloride 114 mEq/L (98-107); Glucose 155 mg/dL (70-105); Osmolality,Calculated 295 (280-300); Potassium 3.8 mEq/L (3.5-5.1); Sodium 140 mEq/L (136-145)
[2022-02-05] MEDS: Sodium Bicarbonate 150 MEQ in D5% in Water 1,000 ML IVC SCH ×3 (09:44→22:24)
[2022-02-05] MEDS: MetroNIDAZOLE 500 MG/100 ML 500 MG/100 ML BAG IVPB SCH (09:50)
[2022-02-05 12:26] LABS: BUN/Creatinine Ratio 23 (6-26); Blood Urea Nitrogen 17 mg/dL (6-20); Calcium 8.2 mg/dL (8.6-10.3); Carbon Dioxide 12 mEq/L (23-29); Chloride 113 mEq/L (98-107); Glucose 169 mg/dL (70-105); Osmolality,Calculated 293 (280-300); Potassium 4.5 mEq/L (3.5-5.1); Sodium 139 mEq/L (136-145)
[2022-02-05] MEDS: Cefepime HCl 2,000 MG in 0.9 % Sodium Chloride 10 ML IVP SCH ×2 (14:11→21:08)
[2022-02-05] MEDS: Insulin LISPRO 300 UNITS/3 ML VIAL SUBQ SCH (21:03)
[2022-02-05] MEDS ORDERED: *HR* OxyCODONE Immed Rel 5 MG TABLET PO ONE (21:28)
[2022-02-05] MEDS: Ondansetron 4 MG/2 ML VIAL IVP PRN (21:50)
[2022-02-05] MEDS: RisperiDAL 3 MG TABLET PO SCH (22:24)
[2022-02-05 22:27] LABS: % Iron Saturation 20 % (15-50); Ferritin 465 ng/mL (10-120); Iron 40 mcg/dL (50-170); Transferrin 140 mg/dL (203-362)
[2022-02-06] MEDS: Acetaminophen 325 MG TABLET PO PRN ×2 (01:45→21:08)
[2022-02-06 05:19] LABS: Basophils % 0.8 %; Eosinophils # 0.1 K/mcL (0.0-0.6); Eosinophils % 2.2 %; Hematocrit 25.6 % (35.3-44.9); Hemoglobin 8.1 g/dL (11.5-15.4); Immature Granulocytes % 1.4 % (0-4); Lymphocytes # 0.9 K/mcL (0.6-4.6); Lymphocytes % 23.6 %; Mean Corpuscular HGB Conc 31.6 g/dL (31.6-35.5); Mean Corpuscular Hemoglobin 27.9 pg (28.0-33.3); Mean Corpuscular Volume 88.3 fL (83.0-100.0); Monocytes # 0.2 K/mcL (0.0-1.3); Monocytes % 5.5 %; Neutrophils # 2.4 K/mcL (1.6-8.9); Platelet Count 215 K/mcL (140-400); Red Cell Distribution Width 15.2 % (11.5-14.5); Segmented Neutrophils % 66.5 %; White Blood Count 3.6 K/mcL (4.3-11.1)
[2022-02-06] MEDS: *HR* Heparin 5,000 UNIT/ML VIAL SQ SCH ×3 (05:31→21:09)
[2022-02-06] MEDS: Cefepime HCl 2,000 MG in 0.9 % Sodium Chloride 10 ML IVP SCH (05:31)
[2022-02-06 05:39] LABS: BUN/Creatinine Ratio 22 (6-26); Blood Urea Nitrogen 16 mg/dL (6-20); Calcium 7.9 mg/dL (8.6-10.3); Carbon Dioxide 18 mEq/L (23-29); Chloride 111 mEq/L (98-107); Glucose 157 mg/dL (70-105); Osmolality,Calculated 296 (280-300); Potassium 3.5 mEq/L (3.5-5.1); Sodium 141 mEq/L (136-145)
[2022-02-06] MEDS ORDERED: Vancomycin 1,750 MG/517.5 ML IV.SOLN IVPB SCH (06:00)
[2022-02-06] MEDS: Insulin LISPRO 300 UNITS/3 ML VIAL SUBQ SCH ×4 (09:29→19:43)
[2022-02-06] MEDS: Ondansetron 4 MG/2 ML VIAL IVP PRN ×3 (09:33→21:08)
[2022-02-06] MEDS: RisperiDAL 3 MG TABLET PO SCH (21:09)
[2022-02-06] MEDS ORDERED: Simethicone 80 MG TAB.CHEW PO PRN (23:56)
[2022-02-07 01:30] LABS: Basophils % 0.5 %; Eosinophils # 0.1 K/mcL (0.0-0.6); Eosinophils % 1.3 %; Hematocrit 27.8 % (35.3-44.9); Hemoglobin 8.6 g/dL (11.5-15.4); Immature Granulocytes % 1.3 % (0-4); Lymphocytes # 1.2 K/mcL (0.6-4.6); Lymphocytes % 29.7 %; Mean Corpuscular HGB Conc 30.9 g/dL (31.6-35.5); Mean Corpuscular Hemoglobin 27.4 pg (28.0-33.3); Mean Corpuscular Volume 88.5 fL (83.0-100.0); Mean Platelet Volume 10.3 fL (9.4-12.4); Monocytes # 0.2 K/mcL (0.0-1.3); Monocytes % 4.6 %; Neutrophils # 2.4 K/mcL (1.6-8.9); Platelet Count 225 K/mcL (140-400); Red Blood Count 3.14 M/mcL (3.82-4.97); Red Cell Distribution Width 15.2 % (11.5-14.5); Segmented Neutrophils % 62.6 %; White Blood Count 3.9 K/mcL (4.3-11.1)
[2022-02-07 01:51] LABS: BUN/Creatinine Ratio 16 (6-26); Blood Urea Nitrogen 12 mg/dL (6-20); Calcium 8.3 mg/dL (8.6-10.3); Carbon Dioxide 19 mEq/L (23-29); Chloride 111 mEq/L (98-107); Glucose 132 mg/dL (70-105); Osmolality,Calculated 296 (280-300); Potassium 3.3 mEq/L (3.5-5.1); Sodium 142 mEq/L (136-145)
[2022-02-07] MEDS: *HR* Heparin 5,000 UNIT/ML VIAL SQ SCH ×3 (05:12→21:30)
[2022-02-07] MEDS: Insulin LISPRO 300 UNITS/3 ML VIAL SUBQ SCH ×4 (09:43→22:28)
[2022-02-07] MEDS: Ondansetron 4 MG/2 ML VIAL IVP PRN (09:44)
[2022-02-07] MEDS: *HR* Promethazine 25 MG/ML VIAL IM PRN ×2 (13:12→21:32)
[2022-02-07] MEDS ORDERED: clonazePAM 1 MG TABLET PO PRN (13:15)
[2022-02-07] MEDS: Acetaminophen 325 MG TABLET PO PRN (17:41)
[2022-02-07] MEDS: RisperiDAL 3 MG TABLET PO SCH (21:29)
[2022-02-08] MEDS: Acetaminophen 325 MG TABLET PO PRN ×2 (01:00→10:25)
[2022-02-08 03:27] LABS: Basophils % 0.7 %; Hematocrit 27.8 % (35.3-44.9); Hemoglobin 8.4 g/dL (11.5-15.4); Immature Granulocytes % 0.7 % (0-4); Lymphocytes # 1.2 K/mcL (0.6-4.6); Lymphocytes % 28.6 %; Mean Corpuscular HGB Conc 30.2 g/dL (31.6-35.5); Mean Corpuscular Hemoglobin 27.1 pg (28.0-33.3); Mean Corpuscular Volume 89.7 fL (83.0-100.0); Mean Platelet Volume 10.4 fL (9.4-12.4); Monocytes # 0.2 K/mcL (0.0-1.3); Monocytes % 5.4 %; Neutrophils # 2.6 K/mcL (1.6-8.9); Platelet Count 229 K/mcL (140-400); Segmented Neutrophils % 63.6 %; White Blood Count 4.1 K/mcL (4.3-11.1)
[2022-02-08 03:42] LABS: BUN/Creatinine Ratio 23 (6-26); Blood Urea Nitrogen 17 mg/dL (6-20); Calcium 8.3 mg/dL (8.6-10.3); Carbon Dioxide 18 mEq/L (23-29); Chloride 111 mEq/L (98-107); Glucose 142 mg/dL (70-105); Osmolality,Calculated 296 (280-300); Potassium 3.9 mEq/L (3.5-5.1); Sodium 141 mEq/L (136-145)
[2022-02-08] MEDS: *HR* Heparin 5,000 UNIT/ML VIAL SQ SCH (05:58)
[2022-02-08] MEDS: Insulin LISPRO 300 UNITS/3 ML VIAL SUBQ SCH ×2 (09:08→12:18)
[2022-02-08 10:21] VITALS: BP 111/60; PULSE 78; TEMP 97; O2SAT 99
== END 2022-02-08 15:28 | disposition home or self-care (01) ==
LOC: EMEROOARM 15:59 → 2NENU 15:59 → SUATTDRO 19:42 → 2NENU 21:16
PROVIDERS: ADMIT Internal Medicine; ATTEND Internal Medicine

== ENCOUNTER 2022-02-14 07:38 | Inpatient (IN) ==
[2022-02-14] MEDS ORDERED: 0.9 % Sodium Chloride 2,000 ML ONE (07:45)
[2022-02-14] MEDS ORDERED: Cefepime HCl 2,000 MG in 0.9 % Sodium Chloride 10 ML IVP ONE (08:01)
[2022-02-14 08:13] LABS: Basophils % 0.4 %; Hematocrit 34.2 % (35.3-44.9); Immature Granulocytes % 1.2 % (0-4); Lymphocytes # 1.2 K/mcL (0.6-4.6); Lymphocytes % 10.3 %; Mean Corpuscular Hemoglobin 27.5 pg (28.0-33.3); Mean Corpuscular Volume 88.8 fL (83.0-100.0); Monocytes # 0.6 K/mcL (0.0-1.3); Neutrophils # 9.4 K/mcL (1.6-8.9); Platelet Count 237 K/mcL (140-400); Red Blood Count 3.85 M/mcL (3.82-4.97); Red Cell Distribution Width 16.3 % (11.5-14.5); Segmented Neutrophils % 83.1 %
[2022-02-14 08:14] LABS: Basophils # 0.1 K/mcL (0.0-0.2); Hemoglobin 10.6 g/dL (11.5-15.4); White Blood Count 11.3 K/mcL (4.3-11.1)
[2022-02-14] MEDS: 0.9 % Sodium Chloride 1,000 ML IVC SCH ×2 (08:19→08:41)
[2022-02-14 08:20] LABS: VBG HCO3 15 mEq/L (21-27); VBG PCO2 29 mmHg (41-51); VBG PH 7.32 pH Units (7.32-7.42); VBG PO2 134 mmHg (25-50)
[2022-02-14 08:31] LABS: INR 1.7; Prothrombin Time 19.3 Seconds (9.4-12.1)
[2022-02-14 08:48] LABS: Alanine Aminotransferase 8 Units/L (7-52); Albumin/Globulin Ratio 0.9 (1.1-2.2); Alkaline Phosphatase 124 Units/L (34-104); Aspartate Amino Transferase 10 Units/L (13-39); BUN/Creatinine Ratio 7 (6-26); Bilirubin,Direct 0.3 mg/dL (0.0-0.2); Bilirubin,Indirect 0.6 mg/dL (0.0-1.0); Bilirubin,Total 0.9 mg/dL (0.3-1.0); Blood Urea Nitrogen 22 mg/dL (6-20); Carbon Dioxide 13 mEq/L (23-29); Chloride 105 mEq/L (98-107); Globulin 3.2 g/dL (2.4-3.5); Glucose 269 mg/dL (70-105); Magnesium 1.1 mg/dL (1.6-2.6); Osmolality,Calculated 287 (280-300); Phosphorous 3.5 mg/dL (2.7-4.5); Potassium 4.8 mEq/L (3.5-5.1); Sodium 132 mEq/L (136-145); Total Protein 6.2 g/dL (6.4-8.9); Troponin I < 0.03 ng/mL (< 0.04)
[2022-02-14] MEDS ORDERED: Acetaminophen 650 MG RECTAL SUPP RC ONE (09:10)
[2022-02-14 09:45] LABS: Bacteria,Urine Few per hpf (None-Few); Bilirubin,Urine Small (Negative); Blood,Urine Negative (Negative); Clarity,Urine Clear (Clear); Color,Urine Yellow (Yellow); Glucose,Urine (UA) Normal (Normal); Hyaline Casts,Urine Few per lpf (None Seen); Ketones,Urine Trace mg/dL (Negative); Leukocyte Esterase,Urine Small (Negative); Mucus,Urine Few per lpf (None-Few); Nitrite,Urine Negative (Negative); Protein,Urine 30 mg/dL (Neg-Trace); Specific Gravity,Urine > 1.030 (1.010-1.025); Squamous Epithelial Cell,Urine Few per hpf (None-Few); Transitional Epi Cells,Urine Few per hpf (None-Few)
[2022-02-14] MEDS ORDERED: Naloxone 0.4 MG/ML INJ IVP PRN (10:06)
[2022-02-14] MEDS ORDERED: *HR* Dextrose 50 % in Water (Syg) 50 ML SYRINGE IVP PRN (10:24)
[2022-02-14] MEDS ORDERED: D5% in Water 1,000 ML IVC PRN (10:24)
[2022-02-14] MEDS ORDERED: Dextrose Gel 15 GM/37.5 ML TUBE PO PRN ×2 (10:24)
[2022-02-14] MEDS ORDERED: Acetaminophen IV 1,000 MG/100 ML BAG IVPB PRN (10:30)
[2022-02-14 11:39] LABS: Adenovirus Not Detected (Not Detect); Bordetella Pertussis Not Detected (Not Detect); Chlamydophila pneumoniae Not Detected (Not Detect); Coronavirus 229E Not Detected (Not Detect); Coronavirus HKU1 Not Detected (Not Detect); Coronavirus NL63 Not Detected (Not Detect); Coronavirus OC43 Not Detected (Not Detect); Human Metapneumovirus Not Detected (Not Detect); Human Rhinovirus/Enterovirus Not Detected (Not Detect); Influenza A Subtype 2009 H1 Not Detected (Not Detect); Influenza B Not Detected (Not Detect); Mycoplasma pneumoniae Not Detected (Not Detect); Parainfluenza Virus 1 Not Detected (Not Detect); Parainfluenza Virus 2 Not Detected (Not Detect); Parainfluenza Virus 3 Not Detected (Not Detect); Parainfluenza Virus 4 Not Detected (Not Detect); Respiratory Syncytial Virus Not Detected (Not Detect); SARS-CoV-2 DETECTED (Not Detect)
[2022-02-14] MEDS ORDERED: 0.9 % Sodium Chloride 1,000 ML IVC ONE (11:49)
[2022-02-14] MEDS: Insulin LISPRO 300 UNITS/3 ML VIAL SUBQ SCH ×3 (13:52→23:52)
[2022-02-14] MEDS: *HR* Heparin 5,000 UNIT/ML VIAL SQ SCH (17:05)
[2022-02-14 17:19] LABS: Estimated Average Glucose 140 mg/dl; Hemoglobin A1C 6.5 %
[2022-02-14 17:44] LABS: Acetaminophen < 10 mcg/mL (10-20); C-Reactive Protein > 300 mg/L (Less than 10); Creatine Kinase 83 Units/L (30-223); Salicylate < 2.5 mg/dL (15.0-30.0); Uric Acid 11.5 mg/dL (2.3-7.6)
[2022-02-14 17:50] LABS: Thyroid Stimulating Hormone 1.226 mcIU/mL (0.340-5.600)
[2022-02-15] MEDS: Acetaminophen 325 MG TABLET PO PRN (03:14)
[2022-02-15] MEDS ORDERED: RisperiDAL 3 MG TABLET PO SCH (03:45)
[2022-02-15] MEDS: *HR* OxyCODONE Immed Rel 5 MG TABLET PO PRN ×2 (04:07→21:11)
[2022-02-15] MEDS: Ondansetron ODT 4 MG TAB.RAPDIS SL PRN ×2 (04:08→21:11)
[2022-02-15] MEDS: *HR* Heparin 5,000 UNIT/ML VIAL SQ SCH ×2 (04:39→17:33)
[2022-02-15] MEDS: Insulin LISPRO 300 UNITS/3 ML VIAL SUBQ SCH ×3 (04:40→17:34)
[2022-02-15 05:52] LABS: Hematocrit 29.5 % (35.3-44.9); Mean Corpuscular HGB Conc 29.8 g/dL (31.6-35.5); Mean Corpuscular Hemoglobin 27.2 pg (28.0-33.3); Mean Platelet Volume 10.5 fL (9.4-12.4); Platelet Count 176 K/mcL (140-400); Red Blood Count 3.24 M/mcL (3.82-4.97); Red Cell Distribution Width 16.6 % (11.5-14.5); White Blood Count 6.4 K/mcL (4.3-11.1)
[2022-02-15 05:54] LABS: Hemoglobin 8.8 g/dL (11.5-15.4)
[2022-02-15 06:11] LABS: Calcium 7.8 mg/dL (8.6-10.3); Magnesium 1.5 mg/dL (1.6-2.6); Potassium 4.3 mEq/L (3.5-5.1)
[2022-02-15] MEDS ORDERED: Azithromycin 500 MG in 0.9 % Sodium Chloride 250 ML IVPB SCH (13:00)
[2022-02-15] MEDS ORDERED: cefTRIAXone 1,000 MG in 0.9 % Sodium Chloride 10 ML IVPB SCH (13:00)
[2022-02-15] MEDS ORDERED: Baclofen 10 MG TABLET PO PRN (13:28)
[2022-02-15] MEDS: Aspirin 81 MG TAB.CHEW PO SCH (14:14)
[2022-02-15] MEDS: Topiramate 100 MG TABLET PO SCH ×2 (14:14→20:27)
[2022-02-15] MEDS ORDERED: Gabapentin 300 MG CAPSULE PO SCH (15:00)
[2022-02-15] MEDS: MetroNIDAZOLE 500 MG/100 ML 500 MG/100 ML BAG IVPB SCH (16:25)
[2022-02-15] MEDS ORDERED: Metoclopramide 10 MG/2 ML VIAL IVP SCH (18:00)
[2022-02-15] MEDS ORDERED: Sodium Bicarbonate 150 MEQ in D5% in Water 1,000 ML IVC SCH (19:30)
[2022-02-15] MEDS: risperiDONE 1 MG TABLET PO SCH (20:27)
[2022-02-15] MEDS: Cefepime HCl 1,000 MG in 0.9 % Sodium Chloride 10 ML IVP SCH (20:27)
[2022-02-16] MEDS: MetroNIDAZOLE 500 MG/100 ML 500 MG/100 ML BAG IVPB SCH ×4 (00:52→23:51)
[2022-02-16] MEDS: Insulin LISPRO 300 UNITS/3 ML VIAL SUBQ SCH ×5 (00:53→23:52)
[2022-02-16 05:18] LABS: Basophils % 0.2 %; Hematocrit 24.7 % (35.3-44.9); Hemoglobin 7.7 g/dL (11.5-15.4); Immature Granulocytes % 1.3 % (0-4); Lymphocytes # 0.5 K/mcL (0.6-4.6); Mean Corpuscular HGB Conc 31.2 g/dL (31.6-35.5); Mean Corpuscular Hemoglobin 27.9 pg (28.0-33.3); Mean Corpuscular Volume 89.5 fL (83.0-100.0); Mean Platelet Volume 11.1 fL (9.4-12.4); Monocytes # 0.2 K/mcL (0.0-1.3); Monocytes % 4.1 %; Neutrophils # 4.6 K/mcL (1.6-8.9); Nucleated Red Blood Cells 0.4 /100 WBC (0); Platelet Count 174 K/mcL (140-400); Red Blood Count 2.76 M/mcL (3.82-4.97); Red Cell Distribution Width 16.1 % (11.5-14.5); Segmented Neutrophils % 84.4 %; White Blood Count 5.4 K/mcL (4.3-11.1)
[2022-02-16] MEDS: *HR* Heparin 5,000 UNIT/ML VIAL SQ SCH ×2 (05:24→17:54)
[2022-02-16 05:35] LABS: Calcium 7.5 mg/dL (8.6-10.3); Magnesium 1.8 mg/dL (1.6-2.6); Potassium 3.6 mEq/L (3.5-5.1)
[2022-02-16] MEDS ORDERED: lisinopriL 5 MG TABLET PO SCH (09:00)
[2022-02-16] MEDS: Aspirin 81 MG TAB.CHEW PO SCH (09:40)
[2022-02-16] MEDS: Loratadine 10 MG TABLET PO SCH (09:40)
[2022-02-16] MEDS: Topiramate 100 MG TABLET PO SCH ×2 (09:40→21:23)
[2022-02-16] MEDS: Venlafaxine XR (24 HR) 75 MG CAP.ER.24H PO SCH (09:40)
[2022-02-16] MEDS: Cefepime HCl 1,000 MG in 0.9 % Sodium Chloride 10 ML IVP SCH (09:41)
[2022-02-16] MEDS: *HR* OxyCODONE Immed Rel 5 MG TABLET PO PRN ×2 (09:59→21:22)
[2022-02-16] MEDS: Tiotropium 10 INH DOSE IH SCH (10:45)
[2022-02-16] MEDS ORDERED: cefTRIAXone 1,000 MG in 0.9 % Sodium Chloride 10 ML IVP SCH (13:00)
[2022-02-16] MEDS: Magnesium Oxide 400 MG TABLET PO SCH (15:55)
[2022-02-16] MEDS ORDERED: Cefepime HCl 2,000 MG in 0.9 % Sodium Chloride Mini Bag 100 ML IVPB SCH (17:00)
[2022-02-16] MEDS: Cefepime HCl 2,000 MG in 0.9 % Sodium Chloride Mini Bag 100 ML IVPB SCH (17:55)
[2022-02-16] MEDS: Insulin DETEMIR 100 UNIT/ML X5UNITS SUBQ SCH (21:22)
[2022-02-16] MEDS: Ondansetron ODT 4 MG TAB.RAPDIS SL PRN (21:23)
[2022-02-16] MEDS: risperiDONE 1 MG TABLET PO SCH (21:23)
[2022-02-17] MEDS: Cefepime HCl 2,000 MG in 0.9 % Sodium Chloride Mini Bag 100 ML IVPB SCH ×2 (02:50→09:04)
[2022-02-17 03:02] LABS: Basophils % 0.2 %; Hemoglobin 8.1 g/dL (11.5-15.4); Immature Granulocytes % 1.8 % (0-4); Lymphocytes # 0.9 K/mcL (0.6-4.6); Lymphocytes % 15.2 %; Mean Corpuscular Hemoglobin 26.9 pg (28.0-33.3); Mean Corpuscular Volume 89.7 fL (83.0-100.0); Mean Platelet Volume 10.8 fL (9.4-12.4); Monocytes # 0.3 K/mcL (0.0-1.3); Monocytes % 5.4 %; Neutrophils # 4.3 K/mcL (1.6-8.9); Platelet Count 199 K/mcL (140-400); Red Blood Count 3.01 M/mcL (3.82-4.97); Red Cell Distribution Width 15.9 % (11.5-14.5); Segmented Neutrophils % 77.4 %; White Blood Count 5.6 K/mcL (4.3-11.1)
[2022-02-17 03:21] LABS: Calcium 8.3 mg/dL (8.6-10.3); Potassium 4.7 mEq/L (3.5-5.1)
[2022-02-17] MEDS: Insulin LISPRO 300 UNITS/3 ML VIAL SUBQ SCH ×4 (05:37→23:37)
[2022-02-17] MEDS: *HR* Heparin 5,000 UNIT/ML VIAL SQ SCH ×2 (05:37→16:38)
[2022-02-17] MEDS: Tiotropium 10 INH DOSE IH SCH (08:07)
[2022-02-17] MEDS: Topiramate 100 MG TABLET PO SCH ×2 (09:03→21:30)
[2022-02-17] MEDS: Loratadine 10 MG TABLET PO SCH (09:03)
[2022-02-17] MEDS: Aspirin 81 MG TAB.CHEW PO SCH (09:04)
[2022-02-17] MEDS: Magnesium Oxide 400 MG TABLET PO SCH (09:04)
[2022-02-17] MEDS: MetroNIDAZOLE 500 MG/100 ML 500 MG/100 ML BAG IVPB SCH (09:10)
[2022-02-17] MEDS: Insulin DETEMIR 100 UNIT/ML X5UNITS SUBQ SCH ×2 (09:20→21:33)
[2022-02-17] MEDS: Venlafaxine XR (24 HR) 75 MG CAP.ER.24H PO SCH (09:21)
[2022-02-17] MEDS: *HR* OxyCODONE Immed Rel 5 MG TABLET PO PRN ×2 (09:21→21:29)
[2022-02-17] MEDS: dexAMETHasone 4 MG TABLET PO SCH (12:06)
[2022-02-17] MEDS ORDERED: 0.9 % Sodium Chloride 500 ML ONE (14:04)
[2022-02-17] MEDS ORDERED: IOPAMIDOL IVP ONE (14:51)
[2022-02-17] MEDS: Ondansetron ODT 4 MG TAB.RAPDIS SL PRN (21:29)
[2022-02-17] MEDS: risperiDONE 1 MG TABLET PO SCH (21:29)
[2022-02-18 03:06] LABS: Basophils % 0.2 %; Eosinophils % 0.2 %; Hematocrit 29.1 % (35.3-44.9); Hemoglobin 8.8 g/dL (11.5-15.4); Immature Granulocytes % 2.1 % (0-4); Lymphocytes # 0.6 K/mcL (0.6-4.6); Lymphocytes % 13.1 %; Mean Corpuscular HGB Conc 30.2 g/dL (31.6-35.5); Mean Corpuscular Hemoglobin 27.3 pg (28.0-33.3); Mean Corpuscular Volume 90.4 fL (83.0-100.0); Mean Platelet Volume 10.2 fL (9.4-12.4); Monocytes # 0.4 K/mcL (0.0-1.3); Monocytes % 7.4 %; Neutrophils # 3.6 K/mcL (1.6-8.9); Nucleated Red Blood Cells 0.4 /100 WBC (0); Platelet Count 179 K/mcL (140-400); Red Blood Count 3.22 M/mcL (3.82-4.97); Red Cell Distribution Width 15.8 % (11.5-14.5); White Blood Count 4.7 K/mcL (4.3-11.1)
[2022-02-18 03:28] LABS: Calcium 8.3 mg/dL (8.6-10.3); Magnesium 1.8 mg/dL (1.6-2.6)
[2022-02-18] MEDS: *HR* Heparin 5,000 UNIT/ML VIAL SQ SCH ×3 (05:17→20:46)
[2022-02-18] MEDS: Insulin LISPRO 300 UNITS/3 ML VIAL SUBQ SCH ×3 (05:17→18:35)
[2022-02-18] MEDS: *HR* OxyCODONE Immed Rel 5 MG TABLET PO PRN ×3 (05:18→22:01)
[2022-02-18] MEDS: Tiotropium 10 INH DOSE IH SCH (08:03)
[2022-02-18] MEDS: Aspirin 81 MG TAB.CHEW PO SCH (08:21)
[2022-02-18] MEDS: Venlafaxine XR (24 HR) 75 MG CAP.ER.24H PO SCH (08:21)
[2022-02-18] MEDS: Topiramate 100 MG TABLET PO SCH ×2 (08:21→20:45)
[2022-02-18] MEDS: Loratadine 10 MG TABLET PO SCH (08:21)
[2022-02-18] MEDS: dexAMETHasone 4 MG TABLET PO SCH (08:21)
[2022-02-18] MEDS: Magnesium Oxide 400 MG TABLET PO SCH (08:21)
[2022-02-18] MEDS: Insulin DETEMIR 100 UNIT/ML X5UNITS SUBQ SCH ×2 (08:22→20:46)
[2022-02-18] MEDS: RisperiDAL 3 MG TABLET PO SCH (20:45)
[2022-02-18] MEDS: Gabapentin 300 MG CAPSULE PO SCH (20:45)
[2022-02-18] MEDS ORDERED: Gabapentin 300 MG CAPSULE PO SCH (21:00)
[2022-02-19] MEDS: Insulin LISPRO 300 UNITS/3 ML VIAL SUBQ SCH ×4 (00:15→19:08)
[2022-02-19 03:15] LABS: Basophils % 0.2 %; Eosinophils % 0.4 %; Hematocrit 28.7 % (35.3-44.9); Hemoglobin 8.5 g/dL (11.5-15.4); Immature Granulocytes % 1.9 % (0-4); Lymphocytes # 1.3 K/mcL (0.6-4.6); Lymphocytes % 26.8 %; Mean Corpuscular HGB Conc 29.6 g/dL (31.6-35.5); Mean Corpuscular Volume 91.1 fL (83.0-100.0); Mean Platelet Volume 10.6 fL (9.4-12.4); Monocytes # 0.4 K/mcL (0.0-1.3); Monocytes % 7.7 %; Neutrophils # 2.9 K/mcL (1.6-8.9); Platelet Count 175 K/mcL (140-400); Red Blood Count 3.15 M/mcL (3.82-4.97); Red Cell Distribution Width 15.8 % (11.5-14.5); White Blood Count 4.7 K/mcL (4.3-11.1)
[2022-02-19 03:28] LABS: Calcium 8.5 mg/dL (8.6-10.3); Potassium 4.7 mEq/L (3.5-5.1)
[2022-02-19] MEDS: *HR* Heparin 5,000 UNIT/ML VIAL SQ SCH ×3 (05:29→21:15)
[2022-02-19] MEDS: *HR* OxyCODONE Immed Rel 5 MG TABLET PO PRN ×3 (05:29→21:15)
[2022-02-19] MEDS: Tiotropium 10 INH DOSE IH SCH (08:02)
[2022-02-19] MEDS: Loratadine 10 MG TABLET PO SCH (09:46)
[2022-02-19] MEDS: Venlafaxine XR (24 HR) 75 MG CAP.ER.24H PO SCH (09:46)
[2022-02-19] MEDS: Gabapentin 300 MG CAPSULE PO SCH ×2 (09:47→21:15)
[2022-02-19] MEDS: Magnesium Oxide 400 MG TABLET PO SCH (09:47)
[2022-02-19] MEDS: Aspirin 81 MG TAB.CHEW PO SCH (09:47)
[2022-02-19] MEDS: Topiramate 100 MG TABLET PO SCH ×2 (09:47→21:15)
[2022-02-19] MEDS: dexAMETHasone 4 MG TABLET PO SCH (09:47)
[2022-02-19] MEDS: Insulin DETEMIR 100 UNIT/ML X5UNITS SUBQ SCH ×2 (09:47→21:14)
[2022-02-19] MEDS: RisperiDAL 3 MG TABLET PO SCH (21:15)
[2022-02-20] MEDS: Insulin LISPRO 300 UNITS/3 ML VIAL SUBQ SCH ×4 (00:12→18:09)
[2022-02-20] MEDS: *HR* Heparin 5,000 UNIT/ML VIAL SQ SCH ×3 (05:04→20:39)
[2022-02-20] MEDS: *HR* OxyCODONE Immed Rel 5 MG TABLET PO PRN ×4 (05:04→23:57)
[2022-02-20] MEDS: Tiotropium 10 INH DOSE IH SCH (07:55)
[2022-02-20] MEDS: Aspirin 81 MG TAB.CHEW PO SCH (09:33)
[2022-02-20] MEDS: Loratadine 10 MG TABLET PO SCH (09:33)
[2022-02-20] MEDS: Topiramate 100 MG TABLET PO SCH ×2 (09:34→20:39)
[2022-02-20] MEDS: dexAMETHasone 4 MG TABLET PO SCH (09:34)
[2022-02-20] MEDS: Magnesium Oxide 400 MG TABLET PO SCH (09:34)
[2022-02-20] MEDS: Venlafaxine XR (24 HR) 75 MG CAP.ER.24H PO SCH (09:34)
[2022-02-20] MEDS: Gabapentin 300 MG CAPSULE PO SCH ×2 (09:34→20:39)
[2022-02-20] MEDS: Insulin DETEMIR 100 UNIT/ML X5UNITS SUBQ SCH ×2 (10:06→20:39)
[2022-02-20] MEDS: Acetaminophen 325 MG TABLET PO PRN (19:25)
[2022-02-20] MEDS: RisperiDAL 3 MG TABLET PO SCH (20:39)
[2022-02-21] MEDS: *HR* Heparin 5,000 UNIT/ML VIAL SQ SCH ×3 (04:26→20:51)
[2022-02-21] MEDS: *HR* OxyCODONE Immed Rel 5 MG TABLET PO PRN ×3 (05:50→18:18)
[2022-02-21] MEDS: Insulin LISPRO 300 UNITS/3 ML VIAL SUBQ SCH ×4 (06:01→18:17)
[2022-02-21] MEDS: Tiotropium 10 INH DOSE IH SCH (07:28)
[2022-02-21 09:56] LABS: Basophils % 0.5 %; Eosinophils # 0.1 K/mcL (0.0-0.6); Eosinophils % 1.2 %; Hematocrit 28.4 % (35.3-44.9); Hemoglobin 8.4 g/dL (11.5-15.4); Immature Granulocytes % 3.4 % (0-4); Lymphocytes # 1.1 K/mcL (0.6-4.6); Lymphocytes % 27.8 %; Mean Corpuscular HGB Conc 29.6 g/dL (31.6-35.5); Mean Corpuscular Hemoglobin 26.4 pg (28.0-33.3); Mean Corpuscular Volume 89.3 fL (83.0-100.0); Mean Platelet Volume 10.5 fL (9.4-12.4); Monocytes # 0.2 K/mcL (0.0-1.3); Monocytes % 5.9 %; Neutrophils # 2.5 K/mcL (1.6-8.9); Platelet Count 181 K/mcL (140-400); Red Blood Count 3.18 M/mcL (3.82-4.97); Red Cell Distribution Width 15.7 % (11.5-14.5); Segmented Neutrophils % 61.2 %; White Blood Count 4.1 K/mcL (4.3-11.1)
[2022-02-21] MEDS: Venlafaxine XR (24 HR) 75 MG CAP.ER.24H PO SCH (10:27)
[2022-02-21] MEDS: Aspirin 81 MG TAB.CHEW PO SCH (10:27)
[2022-02-21] MEDS: Insulin DETEMIR 100 UNIT/ML X5UNITS SUBQ SCH (10:27)
[2022-02-21] MEDS: Gabapentin 300 MG CAPSULE PO SCH ×2 (10:27→20:51)
[2022-02-21] MEDS: Magnesium Oxide 400 MG TABLET PO SCH (10:27)
[2022-02-21] MEDS: Loratadine 10 MG TABLET PO SCH (10:27)
[2022-02-21] MEDS: Topiramate 100 MG TABLET PO SCH ×2 (10:28→20:51)
[2022-02-21] MEDS: Acetaminophen 325 MG TABLET PO PRN (10:30)
[2022-02-21 10:38] LABS: BUN/Creatinine Ratio 38 (6-26); Blood Urea Nitrogen 27 mg/dL (6-20); Calcium 8.3 mg/dL (8.6-10.3); Carbon Dioxide 22 mEq/L (23-29); Chloride 111 mEq/L (98-107); Glucose 88 mg/dL (70-105); Osmolality,Calculated 293 (280-300); Potassium 4.5 mEq/L (3.5-5.1); Sodium 139 mEq/L (136-145)
[2022-02-21] MEDS: Ondansetron ODT 4 MG TAB.RAPDIS SL PRN (20:51)
[2022-02-21] MEDS: RisperiDAL 3 MG TABLET PO SCH (20:51)
[2022-02-21] MEDS ORDERED: Insulin DETEMIR 100 UNIT/ML X5UNITS SUBQ SCH (21:00)
[2022-02-22] MEDS: *HR* OxyCODONE Immed Rel 5 MG TABLET PO PRN ×3 (00:20→13:41)
[2022-02-22] MEDS: Insulin LISPRO 300 UNITS/3 ML VIAL SUBQ SCH ×3 (00:21→10:59)
[2022-02-22 03:13] LABS: Basophils % 0.2 %; Eosinophils % 0.6 %; Hematocrit 31.5 % (35.3-44.9); Hemoglobin 9.4 g/dL (11.5-15.4); Immature Granulocytes % 2.5 % (0-4); Lymphocytes # 0.8 K/mcL (0.6-4.6); Lymphocytes % 15.9 %; Mean Corpuscular HGB Conc 29.8 g/dL (31.6-35.5); Mean Corpuscular Hemoglobin 26.7 pg (28.0-33.3); Mean Corpuscular Volume 89.5 fL (83.0-100.0); Monocytes # 0.3 K/mcL (0.0-1.3); Monocytes % 6.3 %; Neutrophils # 3.6 K/mcL (1.6-8.9); Platelet Count 178 K/mcL (140-400); Red Blood Count 3.52 M/mcL (3.82-4.97); Red Cell Distribution Width 15.8 % (11.5-14.5); Segmented Neutrophils % 74.5 %; White Blood Count 4.8 K/mcL (4.3-11.1)
[2022-02-22 03:36] LABS: BUN/Creatinine Ratio 31 (6-26); Blood Urea Nitrogen 23 mg/dL (6-20); Calcium 8.2 mg/dL (8.6-10.3); Carbon Dioxide 20 mEq/L (23-29); Chloride 109 mEq/L (98-107); Glucose 117 mg/dL (70-105); Osmolality,Calculated 289 (280-300); Potassium 5.2 mEq/L (3.5-5.1); Sodium 137 mEq/L (136-145)
[2022-02-22] MEDS: *HR* Heparin 5,000 UNIT/ML VIAL SQ SCH ×2 (05:49→13:38)
[2022-02-22] MEDS: Magnesium Oxide 400 MG TABLET PO SCH (07:41)
[2022-02-22] MEDS: Loratadine 10 MG TABLET PO SCH (07:41)
[2022-02-22] MEDS: Topiramate 100 MG TABLET PO SCH (07:41)
[2022-02-22] MEDS: Gabapentin 300 MG CAPSULE PO SCH (07:41)
[2022-02-22] MEDS: Aspirin 81 MG TAB.CHEW PO SCH (07:41)
[2022-02-22] MEDS: Venlafaxine XR (24 HR) 75 MG CAP.ER.24H PO SCH (07:41)
[2022-02-22 07:50] VITALS: O2SAT 97
[2022-02-22] MEDS: Tiotropium 10 INH DOSE IH SCH (11:12)
[2022-02-22 11:16] VITALS: BP 103/51; PULSE 95; TEMP 97.8
== END 2022-02-22 16:20 | DRG 871 ==
LOC: EMEROOARM 07:38 → SUATTDRO 15:20 → 2NENU 15:20
PROVIDERS: ADMIT Student in an Organized Health Care Education/Training Program; ATTEND Internal Medicine